=== PATIENT | female | born 1940 | race American Indian/Alaskan Native ===

== ENCOUNTER 2016-06-28 21:54 | Emergency (ER) | payer MEDICARE ==
[2016-06-28 22:23] VITALS: BP 164/87
[2016-06-29] MEDS ORDERED: TYLENOL PO ONE (03:02)
--- NOTE | 2016-06-29 03:40 | XRay Report ---
FINAL REPORT PROCEDURE: XR SHOULDER THREE VIEWS RIGHT TECHNIQUE: Right shoulder radiographs including AP views in internal and external rotation and abduction. CPT 70123 HISTORY: Right shoulder pain COMPARISON: No prior studies are available for comparison. FINDINGS: Fracture (s) and/or Dislocation(s): None . Joint space(s): Normal . Soft tissues: Normal . Bone mineralization: Mild degenerative change. Foreign bodies: None . IMPRESSION: Mild degenerative change noted with no plain film evidence of fracture or dislocation.
--- NOTE | 2016-06-29 03:59 | Emergency Department Report ---
Upper Extremity - HPI Chief Complaint: Extremity Injury, Upper Stated Complaint: FALL Time Seen by Provider: 06/29/16 03:01 Upper Extremity: Right Shoulder (patient complaining of right upper shoulder pain status post mechanical trip and fall in her bedroom tonight) Occurred When: Today Mechanism: Fall Symptoms: Yes Pain with Movement, No Deformity, No Limited Range of Movement, No Numbness, No Weakness, No Swelling, No Bruising/Ecchymosis, No Laceration or Abrasion Other History: 75-year-old female past medical history hypertension presents with complaint of right upper shoulder pain. Patient is awake alert and oriented 3 does not appear in acute distress states that she tripped over a laundry bag in her bedroom and her right shoulder hit the edge of bed. Patient denies any loss of consciousness that up immediately complaining of pain in her right upper shoulder region. Patient accompanied by her daughters. Daughter state that they immediately assisted her mother wanted her to fell. Occurred approximately 2 hours ago ED Review of Systems ROS: Stated complaint: FALL Other details as noted in HPI Constitutional: denies: chills, fever Eyes: denies: eye pain, eye discharge, vision change ENT: denies: ear pain, throat pain Respiratory: denies: cough, shortness of breath, wheezing Cardiovascular: denies: chest pain, palpitations Endocrine: no symptoms reported Gastrointestinal: denies: abdominal pain, nausea, diarrhea Genitourinary: denies: urgency, dysuria, discharge Musculoskeletal: as per HPI. denies: back pain, joint swelling, arthralgia Skin: denies: rash, lesions Neurological: denies: headache, weakness, paresthesias Psychiatric: denies: anxiety, depression Hematological/Lymphatic: denies: easy bleeding, easy bruising ED Past Medical Hx - Past Medical History Previous Medical History?: Yes Hx Hypertension: Yes - Surgical History Past Surgical History?: No - Social History Smoking Status: Never Smoker Substance Use Type: None - Medications Home Medications: Home Medications Medication Instructions Recorded Confirmed Last Taken Type Ciprofloxacin HCl [Cipro] 500 mg PO BID #14 tablet 09/11/14 Unknown Rx Lisinopril/Hydrochlorothiazide 1 tab PO QDAY 09/11/14 09/11/14 09/10/14 History [Zestoretic 20-25 mg] Acetaminophen [Acetaminophen TAB] 500 mg PO Q6HR PRN #20 tablet 06/29/16 Unknown Rx Upper Extremity Exam - Exam General: Vital signs noted. No distress. Alert and acting appropriately. Head and Torso: No HEENT Abnormality, No Neck Tenderness, No Chest/Lungs Abnormality, No Abdominal Tenderness, No Back Tenderness Shoulder Exam: Yes Shoulder Tenderness (mild anterior shoulder tenderness no signs of swelling or ecchymosis or lacerations), Yes Normal Range of Motion in Shoulder (inch motion abduction and abduction shoulder rotation internal and external fully intact), No Clavicle Tenderness, No Shoulder Deformity, No AC Joint Tenderness Arm Exam: No Arm/Humerus Tenderness, No Arm Deformity Elbow: No Elbow Tenderness, No Normal Range of Motion in Elbow, No Elbow Deformity Forearm: No Forearm Tenderness, No Forearm Deformity, No Pain with Pronation, No Pain with Supination Wrist: Yes Normal ROM in Wrist, No Wrist Tenderness, No Wrist Deformity, No Snuffbox Tenderness, No Pain with Axial Thumb Compression Hand: Yes Normal ROM in Digit(s), No Hand Tenderness, No Hand Deformity, No Digit Tenderness, No Digit(s) Deformity, No Tendon Dysfunction CMS Exam: Yes Normal Distal Pulses (distal radial and brachial pulses fully intact on palpation), Yes Normal Capillary Refill, No Broken Skin, No Normal Distal Sensation (total proprioception and sensitivity to light touch fully intact) ED Course Vital Signs 06/28/16 22:19 Temperature 98.0 F Pulse Rate 75 Respiratory 20 Rate Blood Pressure 164/87 O2 Sat by Pulse 100 Oximetry ED Medical Decision Making - Medical Decision Making A/P: Mechanical fall, shoulder sprain 1-x-rays show no fractures, neurovascularly intact right upper extremity, no signs of fracture on clinical exam, strength 5 out of 5, range of motion right shoulder preserved active and passive 2-Tylenol when necessary for pain 3-follow-up with primary care doctor Critical care attestation.: If time is entered above; I have spent that time in minutes in the direct care of this critically ill patient, excluding procedure time. ED Disposition Clinical Impression: Fall Qualifiers: Encounter type: initial encounter Qualified Code(s): W19.XXXA - Unspecified fall, initial encounter Shoulder sprain Qualifiers: Encounter type: initial encounter Shoulder sprain type: unspecified sprain Laterality: right Qualified Code(s): S43.401A - Unspecified sprain of right shoulder joint, initial encounter Disposition: DISCHARGED TO HOME OR SELFCARE Is pt being admited?: No Does the pt Need Aspirin: No Condition: Stable Instructions: Shoulder Sprain (ED), RICE Therapy (ED) Prescriptions: Acetaminophen [Acetaminophen TAB] 500 mg PO Q6HR PRN #20 tablet PRN Reason: Pain Referrals: JEFF HILTON MD [Staff Physician] - 3-5 Days [facility] [Provider Group] - 3-5 Days Forms: Accompanied Note, Work/School Release Form(ED) Time of Disposition: 03:53
== END 2016-06-29 03:59 | disposition home or self-care (01) ==
LOC: ED 21:54
DX: S43.401A Unspecified sprain of right shoulder joint, initial encounter (principal); I10 Essential (primary) hypertension; W19.XXXA Unspecified fall, initial encounter; Y93.89 Activity, other specified; Y99.9 Unspecified external cause status; Y92.89 Other specified places as the place of occurrence of the external cause

== ENCOUNTER 2020-10-11 03:25 | Inpatient (IN) | payer MEDICARE ==
--- NOTE | 2020-10-11 04:26 | Emergency Department Report ---
ED Neuro Deficit HPI - General Chief Complaint: Altered Mental Status Stated Complaint: DIZZY/VOMITING/VISION LOSS RT EYE Source: patient Mode of arrival: Ambulatory Limitations: No Limitations - History of Present Illness Initial Comments: Chief complaint: Confused, abnormal gait, abnormal vision, dizzy, vomiting HPI: 80-year-old female with history of hypertension who presents with confusion, gait imbalance and double vision. At 2 PM, family member noticed that patient was ill. Daughter at the bedside noticed that she was walking to one side. She is unable to walk without assistance which is new. Her right eye is deviated outward. No previous history of stroke. Patient denies headache. She denies pain. History is limited due to patient's confusion. Patient does not take aspirin or blood thinners. -: Sudden, This morning (2 AM) Location: ataxia, other (Double vision confusion) Presenting Symptoms: Present: Altered Mental Status History of same: No Place: home Severity: severe Improves With: none Worsens With: none On Anticoagulants: No Context: sudden onset Treatments Prior to Arrival: none - Related Data Home Medications: Previous Rx's Medication Instructions Recorded Last Taken Type Aspirin EC [Halfprin EC] 81 mg PO QDAY 30 Days #30 tablet. 10/12/20 Unknown Rx AtorvaSTATin [Lipitor] 20 mg PO QHS 30 Days #30 tab 10/12/20 Unknown Rx Clopidogrel [Plavix] 75 mg PO QDAY #30 tablet 10/12/20 Unknown Rx Losartan/Hydrochlorothiazide 1 each PO QDAY #30 tablet 10/12/20 Unknown Rx [Losartan-Hctz 100-25 mg Tab] Potassium Chloride [K-Dur] 10 meq PO QDAY 30 Days #30 10/12/20 Unknown Rx carvediloL [Coreg] 12.5 mg PO BID #60 10/12/20 Unknown Rx Allergies/Adverse Reactions: Allergies Allergy/AdvReac Type Severity Reaction Status Date / Time No Known Allergies Allergy Verified 09/11/14 05:54 ED Review of Systems ROS: Stated complaint: DIZZY/VOMITING/VISION LOSS RT EYE Other details as noted in HPI Comment: Unobtainable due to pts medical conditions (Confusion) ED Past Medical Hx - Past Medical History Previous Medical History?: Yes Hx Hypertension: Yes - Surgical History Past Surgical History?: No - Family History Family history: hypertension - Social History Smoking Status: Never Smoker - Medications Home Medications: Home Medications Medication Instructions Recorded Confirmed Last Taken Type Aspirin EC [Halfprin EC] 81 mg PO QDAY 30 Days #30 tablet. 10/12/20 Unknown Rx AtorvaSTATin [Lipitor] 20 mg PO QHS 30 Days #30 tab 10/12/20 Unknown Rx Clopidogrel [Plavix] 75 mg PO QDAY #30 tablet 10/12/20 Unknown Rx Losartan/Hydrochlorothiazide 1 each PO QDAY #30 tablet 10/12/20 Unknown Rx [Losartan-Hctz 100-25 mg Tab] Potassium Chloride [K-Dur] 10 meq PO QDAY 30 Days #30 10/12/20 Unknown Rx carvediloL [Coreg] 12.5 mg PO BID #60 10/12/20 Unknown Rx ED Neuro Physical Exam - General Limitations: No Limitations General appearance: alert, other (Slow to respond to questions, frail soft speech) Suspected Stroke: Yes - Head Head exam: Present: atraumatic, normocephalic - Eye Eye exam: Present: normal appearance, other (Right eye deviated to the temporal region laterally) - ENT ENT exam: Present: mucous membranes moist - Neck Neck exam: Present: normal inspection, full ROM - Respiratory Respiratory exam: Present: normal lung sounds bilaterally. Absent: respiratory distress, wheezes, rales - Cardiovascular Cardiovascular Exam: Present: regular rate, normal rhythm, normal heart sounds. Absent: systolic murmur, diastolic murmur, rubs, gallop - GI/Abdominal GI/Abdominal exam: Present: soft, normal bowel sounds. Absent: tenderness, guarding, rebound - Extremities Exam Extremities exam: Present: normal inspection - Neurological Exam Neurological exam: Present: alert, oriented X3 - NIHSS Assessment Interval: Baseline 1a. Level of Consciousness: alert/keenly responsive 1b. LOC Questions: answers no questions correctly 1c. LOC Commands: performs tasks correctly 2. Best Gaze: partial gaze palsy 3. Visual: no visual loss 4. Facial Palsy: normal symmetrical movement 5b. Motor Arm Right: no drift 5a. Motor Arm Left: no drift 6a. Motor Leg Left: no drift 6b. Motor Leg Right: no drift 7. Limb Ataxia: present 2 limbs 8. Sensory: normal 9. Best Language: no aphasia 10. Dysarthria: normal 11. Extinction/Inattention: no abnormality Total Score: 5 Stroke Severity: Moderate Stroke - Psychiatric Psychiatric exam: Present: normal affect, normal mood - Skin Skin exam: Present: warm, dry, intact, normal color. Absent: rash ED Course Vital Signs 10/11/20 10/11/20 10/11/20 03:59 06:00 06:36 Temperature 97.4 F L 97.5 F L Pulse Rate 78 77 81 Respiratory 16 18 28 H Rate Blood Pressure 155/83 Blood Pressure 163/85 [Left] O2 Sat by Pulse 98 98 Oximetry 10/11/20 10/11/20 10/11/20 07:00 07:30 08:01 Temperature Pulse Rate 76 75 77 Respiratory 18 21 15 Rate Blood Pressure 167/84 160/78 160/78 Blood Pressure [Left] O2 Sat by Pulse 98 98 99 Oximetry 10/11/20 10/11/20 10/11/20 08:31 09:01 09:31 Temperature Pulse Rate 76 78 58 L Respiratory 19 22 23 Rate Blood Pressure 160/78 161/74 174/76 Blood Pressure [Left] O2 Sat by Pulse 100 99 100 Oximetry 10/11/20 10/11/20 10/11/20 10:03 10:31 11:01 Temperature Pulse Rate Respiratory Rate Blood Pressure 174/76 174/76 166/76 Blood Pressure [Left] O2 Sat by Pulse 97 99 100 Oximetry 10/11/20 10/11/20 10/11/20 11:21 11:31 11:41 Temperature Pulse Rate 70 65 Respiratory 23 21 24 Rate Blood Pressure 166/76 166/76 166/76 Blood Pressure [Left] O2 Sat by Pulse 100 99 100 Oximetry 10/11/20 10/11/20 10/11/20 11:51 12:01 12:11 Temperature Pulse Rate 73 75 68 Respiratory 27 H 19 25 H Rate Blood Pressure 166/76 166/76 166/76 Blood Pressure [Left] O2 Sat by Pulse 98 100 100 Oximetry 10/11/20 10/11/20 10/11/20 12:21 12:31 12:41 Temperature Pulse Rate 78 73 67 Respiratory 26 H 27 H 22 Rate Blood Pressure 166/76 166/76 166/76 Blood Pressure [Left] O2 Sat by Pulse 98 99 99 Oximetry 10/11/20 10/11/20 12:51 13:00 Temperature Pulse Rate 67 87 Respiratory 21 17 Rate Blood Pressure 166/76 166/76 Blood Pressure [Left] O2 Sat by Pulse 99 89 Oximetry - Reevaluation(s) Reevaluation #1: 10/11/20 04:49 ~Neurologist diagnosed patient with left 3rd nerve palsy he also noted dysmetria and dysarthria on exam. Recommended stroke evaluation. 10/11/20 04:50 Reevaluation #2: 10/11/20 04:50 I spoke directly with the radiologist per phone. She stated the CT head was negative for acute findings. - Lab Data Result diagrams: 10/11/20 04:53 10/11/20 04:53 Lab Results 10/11/20 10/11/20 10/11/20 Range/Units 04:53 04:53 04:53 WBC 10.8 (4.5-11.0) K/mm3 RBC 4.45 (3.65-5.03) M/mm3 Hgb 13.5 (10.1-14.3) gm/dl Hct 41.2 (30.3-42.9) % MCV 93 (79-97) fl MCH 30 (28-32) pg MCHC 33 (30-34) % RDW 14.7 (13.2-15.2) % Plt Count 131 L (140-440) K/mm3 Lymph % (Auto) 10.4 L (13.4-35.0) % [place] % (Auto) 2.5 (0.0-7.3) % Eos % (Auto) 0.6 (0.0-4.3) % Baso % (Auto) 0.4 (0.0-1.8) % Lymph # (Auto) 1.1 L (1.2-5.4) K/mm3 [place] # (Auto) 0.3 (0.0-0.8) K/mm3 Eos # (Auto) 0.1 (0.0-0.4) K/mm3 Baso # (Auto) 0.0 (0.0-0.1) K/mm3 Seg Neutrophils % 86.1 H (40.0-70.0) % Seg Neutrophils # 9.3 H (1.8-7.7) K/mm3 PT (12.2-14.9) Sec. INR (0.87-1.13) APTT (24.2-36.6) Sec. Sodium 140 (137-145) mmol/L Potassium 4.3 (3.6-5.0) mmol/L Chloride 102.9 (98-107) mmol/L Carbon Dioxide 29 (22-30) mmol/L Anion Gap 12 mmol/L BUN 12 (7-17) mg/dL Creatinine 0.4 L (0.6-1.2) mg/dL Estimated GFR > 60 ml/min BUN/Creatinine Ratio 30 % Glucose 179 H (65-100) mg/dL Calcium 9.8 (8.4-10.2) mg/dL Total Bilirubin 0.50 (0.1-1.2) mg/dL AST 17 (5-40) units/L ALT 13 (7-56) units/L Alkaline Phosphatase 130 H (35-129) units/L Troponin T < 0.010 (0.00-0.029) ng/mL Total Protein 7.3 (6.3-8.2) g/dL Albumin 4.6 (3.9-5) g/dL Albumin/Globulin Ratio 1.7 % // Range/Units 04:53 WBC (4.5-11.0) K/mm3 RBC (3.65-5.03) M/mm3 Hgb (10.1-14.3) gm/dl Hct (30.3-42.9) % MCV (79-97) fl MCH (28-32) pg MCHC (30-34) % RDW (13.2-15.2) % Plt Count (140-440) K/mm3 Lymph % (Auto) (13.4-35.0) % [place] % (Auto) (0.0-7.3) % Eos % (Auto) (0.0-4.3) % Baso % (Auto) (0.0-1.8) % Lymph # (Auto) (1.2-5.4) K/mm3 [place] # (Auto) (0.0-0.8) K/mm3 Eos # (Auto) (0.0-0.4) K/mm3 Baso # (Auto) (0.0-0.1) K/mm3 Seg Neutrophils % (40.0-70.0) % Seg Neutrophils # (1.8-7.7) K/mm3 PT 13.4 (12.2-14.9) Sec. INR 0.96 (0.87-1.13) APTT 25.3 (24.2-36.6) Sec. Sodium (137-145) mmol/L Potassium (3.6-5.0) mmol/L Chloride (98-107) mmol/L Carbon Dioxide (22-30) mmol/L Anion Gap mmol/L BUN (7-17) mg/dL Creatinine (0.6-1.2) mg/dL Estimated GFR ml/min BUN/Creatinine Ratio % Glucose (65-100) mg/dL Calcium (8.4-10.2) mg/dL Total Bilirubin (0.1-1.2) mg/dL AST (5-40) units/L ALT (7-56) units/L Alkaline Phosphatase (35-129) units/L Troponin T (0.00-0.029) ng/mL Total Protein (6.3-8.2) g/dL Albumin (3.9-5) g/dL Albumin/Globulin Ratio % - EKG Data -: EKG Interpreted by Hi EKG shows normal: sinus rhythm, axis Rate: normal Interpretation: nonspecific ST-T wave carla 10/11/20 05:12 EKG obtained 408 EKG interpreted by va Normal sinus rhythm rate 85 bpm normal axis prolonged MN interval MN depression isolated ST 1 mm elevation in lead II less than [address] elevation in V5 V6 - Radiology Data Radiology results: report reviewed Radiology impression: AP portable chest 1 view: No evidence of acute cardiopulmonary process CT head without contrast: Changes associated with chronic small vessel ischemic disease and atrophy - Medical Decision Making Left-sided 3rd nerve palsy, gait dysfunction with dysmetria and dysarthria suspicious for acute CVA. According to the teleneurologist NIH stroke scale 2. He did not recommend TPA. Last known well time according to history 2 PM. Considering concomitant symptoms of gait and balance dysmetria and dysarthria I am concerned for brainstem or cortical CVA. Patient given aspirin. CBC chemistry troponin coagulation parameters are within normal limits. Patient will be admitted to the hospital service. Critical Care Time: Yes Critical care time in (mins) excluding proc time.: 40 Critical care attestation.: If time is entered above; I have spent that time in minutes in the direct care of this critically ill patient, excluding procedure time. 40 minutes of critical care time excluding procedures were used in the care of the patient. After reviewing patient's EKG, history obtained by triage nurse. I immediately walked to the triage area to evaluate patient obtain history from daughter. I ordered stroke protocol. I activated code stroke. I informed charge nurse and business systems analyst patient had stroke symptoms. I discussed treatment plan with the nursing team members. I reviewed electronic record. I kept the family member informed. Patient required multiple interventions and reassessments. ED Disposition Clinical Impression: Acute CVA (cerebrovascular accident), Left-sided third cranial nerve palsy on examination Disposition: DC09 OP ADMIT IP TO THIS HOSP Is pt being admited?: Yes Does the pt Need Aspirin: No Condition: Stable
--- NOTE | 2020-10-11 04:38 | Consultation ---
History of Present Illness History of present illness: [place] [facility] Consult Note # Demographics Consult Type: Acute Stroke Level 2 (4.5-24 hrs) Patient Location: Emergency Room First Name: Pretty Miller Last Name: Keke Date of : 1940 Age: 80 Gender: Female Time of Initial Page ( Time): 10/11/2020, 04:23 Time of Return Call ( Time): 10/11/2020, 04:25 # HPI Chief Complaint: dizziness History: 80F with HTN presents with dizziness and trouble walking. Symptoms started at approximately 1400. # Scores Time of exam and NIHSS (): 10/11/2020, 04:25 Level of Consciousness 1a: [0] = Alert; keenly responsive LOC Questions 1b: [0] = Answers both questions correctly LOC Commands 1c: [0] = Performs both tasks correctly Best Gaze 2: [1] = Partial gaze palsy Visual 3: [0] = No visual loss Facial Palsy 4: [0] = Normal symmetrical movements Motor Arm Left 5a: [0] = No drift Motor Arm Right 5b: [0] = No drift Motor Leg Left 6a: [0] = No drift Motor Leg Right 6b: [0] = No drift Limb Ataxia 7: [0] = Absent Sensory 8: [0] = Normal Best Language 9: [0] = No aphasia Dysarthria 10: [1] = [id number] dysarthria Extinction and Inattention 11: [0] = No abnormality NIHSS Total: 2 # Data Time Head CT personally read by me (): 10/11/2020, 04:[address]: no bleed preliminarily reviewed by me, please refer to radiology read for official reading # Assessment Impression: Ischemic Stroke (Acute) # Plan Thrombolytic/Intervention: NOT IV Thrombolytic or IA Intervention Thrombolytic Exclusion: > 4.5 hours Intraarterial Exclusion: clinically consistent with small vessel disease Target Blood Pressure: SBP < 220 DBP < 105 Labs: hemoglobin A1c lipid panel Imaging: (urgency: routine): MR Angiogram Head without contrast MR Angiogram Neck with contrast MRI Brain without contrast Diagnostic Test: echo without bubble study Therapy/Evaluation: PT/OT evaluation speech/swallow consultation Medication: ASA 325 then 81 daily, atorvastatin 80 and tailor daily dose to LDL < 70 goal DVT Prophylaxis: SCD chemical DVT prophylaxis Other: permissive hypertension telemetry monitoring I have discussed my recommendations with the referring provider Disposition: admit # Logistics Telemedicine: Interactive 2 way audio and visual telecommunication technology was utilized during this visit Electronically signed at 10/11/2020 04:37 (Eastern Time) by Clive Cast MD Medications and Allergies Allergies Allergy/AdvReac Type Severity Reaction Status Date / Time No Known Allergies Allergy Verified 09/11/14 05:54 Home Medications Medication Instructions Recorded Confirmed Last Taken Type Ciprofloxacin HCl [Cipro] 500 mg PO BID #14 tablet 09/11/14 Unknown Rx Lisinopril/Hydrochlorothiazide 1 tab PO QDAY 09/11/14 09/11/14 09/10/14 History [Zestoretic 20-25 mg] Acetaminophen [Acetaminophen TAB] 500 mg PO Q6HR PRN #20 tablet 06/29/16 Unknown Rx Physical Examination - Vital Signs Vital Signs: Vital Signs Temp Pulse Resp BP Pulse Ox 97.4 F L 78 16 155/83 98 10/11/20 03:59 10/11/20 03:59 10/11/20 03:59 10/11/20 03:59 10/11/20 03:59
--- NOTE | 2020-10-11 04:50 | Cat Scan Report ---
Examination: CT of the head without contrast Clinical information: Altered mental status. Comparison: None Technical: Multiple axial CT images of the head were obtained without intravenous contrast. Sagittal and coronal reformats were obtained. All CTs at this facility utilize dose reduction techniques inc luding automated exposure control, iterative reconstruction and weight based dosing when appropriate to reduce patient radiation dose to as low as reasonable achievable. Findings: INTRACRANIAL CONTENTS: There is no CT evidence of acute intracranial hemorrhage. Mild symmetric periv entricular hypodensities are seen in the deep white matter bilaterally. There is mild generalized atr ophy. The ventricular system is normal in size. There is dense calcification along the falx. SKULL: No acute bony abnormality is visualized. ORBITS: The bilateral orbits and globes appear normal PARANASAL SINUSES / MASTOID AIR CELLS: Paranasal sinuses and mastoid air cells appear clear. Impression: 1. Changes associated with chronic small vessel ischemic disease and atrophy. If there is persistent clinical concern for stroke, MRI of the brain would be helpful for additional evaluation. This stud y was designated as a code stroke protocol. Findings were personally communicated to Dr. Calvin at 3: 45 AM. CRITICAL RESULT: Time of Discovery (SUPERVISOR WOOD [employer]W/CDT): 3:40 AM Time of Communication (SUPERVISOR WO[employer]W/CDT): 3:45 AM Licensed Practitioner Receiving Report: Dr. Calvin Read-Back Performed: Yes. Signer Name: Lorena Garcia MD Signed: 10/11/2020 4:45 AM Workstation Name: [id number]
[2020-10-11] MEDS ORDERED: ASPIRIN 325 MG TAB PO ONE (04:52)
--- NOTE | 2020-10-11 05:01 | XRay Report ---
CHEST 1 VIEW, 10/11/2020 3:54 AM CLINICAL INFORMATION/INDICATION: Altered mental status. Weakness. COMPARISON: None. FINDINGS: SUPPORT DEVICES: None. HEART: The cardiac silhouette is normal in size. LUNGS/PLEURA: The lungs are clear of focal airspace disease or significant pleural effusion. ADDITIONAL FINDINGS: No additional acute findings. IMPRESSION: 1. No evidence of acute cardiopulmonary process. Signer Name: Lorena Garcia MD Signed: 10/11/2020 4:56 AM Workstation Name: [id number]
[2020-10-11 05:18] LABS: Basophils % (Auto) 0.4 % (0.0-1.8); Eosinophils # (Auto) 0.1 K/mm3 (0.0-0.4); Eosinophils % (Auto) 0.6 % (0.0-4.3); Hematocrit 41.2 % (30.3-42.9); Hemoglobin 13.5 gm/dl (10.1-14.3); Lymphocytes # (Auto) 1.1 K/mm3 (1.2-5.4); Lymphocytes % (Auto) 10.4 % (13.4-35.0); Mean Corpuscular HGB Conc 33 % (30-34); Mean Corpuscular Volume 93 fl (79-97); Monocytes # (Auto) 0.3 K/mm3 (0.0-0.8); Monocytes % (Auto) 2.5 % (0.0-7.3); Red Blood Count 4.45 M/mm3 (3.65-5.03); Red Cell Distribution Width 14.7 % (13.2-15.2)
[2020-10-11 05:29] LABS: INR 0.96 (0.87-1.13); Platelet Count 131 K/mm3 (140-440)
[2020-10-11 05:30] LABS: Partial Thromboplastin Time 25.3 Sec. (24.2-36.6)
[2020-10-11 05:35] LABS: Alanine Aminotransferase 13 units/L (7-56); Albumin 4.6 g/dL (3.9-5); Blood Urea Nitrogen 12 mg/dL (7-17); Calcium 9.8 mg/dL (8.4-10.2); Hemolysis Index 40
[2020-10-11 05:37] LABS: BUN/Creatinine Ratio 30
--- NOTE | 2020-10-11 15:02 | Electrocardiograph Report ---
[facility] Test Date: 2020-10-11 Test Time: 04:09:23 Pat Name: JD DECKER Department: Room: A490 Gender: F Environmental Compliance Technician: HECTOR : 1940 Requested By: SYDNIE SONG Order Number: [id number] Reading MD: Valentin Lester Measurements Intervals [place] Rate: 85 P: 56 NH: 214 QRS: 19 QRSD: 57 T: 29 QT: 375 QTc: 446 Interpretive Statements Sinus rhythm Borderline prolonged NH interval Left atrial enlargement Probable anterolateral infarct, old ST elevation, consider inferior injury No previous ECG available for comparison Electronically Signed On 10-11-2020 15:02:12 EDT by Valentin Lester
[2020-10-11] MEDS ORDERED: D5W/0.9% NACL 1,000 ML IV SCH (16:00)
[2020-10-11] MEDS: hydrALAZINE 20 MG/1 ML INJ IV PRN (22:56)
[2020-10-12] MEDS ORDERED: cloNIDine 0.1 MG TAB PO PRN (00:43)
[2020-10-12 07:00] LABS: Bilirubin,Urine NEG (Negative); Blood,Urine NEG (Negative); Calcium Oxalate Crystals,Urine 3+; Color,Urine Yellow (Yellow); Mucus,Urine FEW /HPF; Protein,Urine <15 mg/dL mg/dL (Negative)
--- NOTE | 2020-10-12 07:59 | History and Physical Report ---
History of Present Illness Date of examination: 10/11/20 Date of admission: 10/11/20 07:11 Chief complaint: 80F with HTN presents with dizziness and trouble walking. Symptoms started at approximately 1400. History of present illness: 80-year-old female with history of hypertension who presents with confusion, gait imbalance and double vision. At 2 PM, family member noticed that patient was ill. Daughter at the bedside noticed that she was walking to one side. She is unable to walk without assistance which is new. Her right eye is deviated outward. No previous history of stroke. Patient denies headache. She denies pain. History is limited due to patient's confusion. Patient does not take aspirin or blood thinners. -: Sudden, This morning (2 AM) Location: ataxia, other (Double vision confusion) Presenting Symptoms: Present: Altered Mental Status History of same: No Place: home Severity: severe Improves With: none Worsens With: none On Anticoagulants: No Context: sudden onsetTreatments Prior to Arrival: none - Past Medical History Previous Medical History?: Yes --Hypertension: Yes - Surgical History Past Surgical History?: No - Family History Family history: hypertension - Social History Smoking Status: Never Smoker - Medications Home Medications: Home Medications Medication Instructions Recorded Confirmed Last Taken Type Ciprofloxacin HCl [Cipro] 500 mg PO BID #14 tablet 09/11/14 Unknown Rx Lisinopril/Hydrochlorothiazide 1 tab PO QDAY 09/11/14 09/11/14 09/10/14 History [Zestoretic 20-25 mg] Acetaminophen [Acetaminophen TAB] 500 mg PO Q6HR PRN #20 tablet 06/29/16 Unknown Rx Review of Systems ROS: Constitutional no weight loss or weight gain no fever or chills HEENT diplopia on looking to the right side Neck no neck stiffness no lymph gland enlargement Chest and lungs no shortness of breath cough or wheezing CVS no chest pain no diaphoresis no palpitations GI no nausea no vomiting no diarrhea Genitourinary system no dysuria no flank pain Musculoskeletal system no muscle pains no joint pains [employer] weakness in both lower extremities, frequent falls Skin no rash no itching Psychiatric no depression no homicidal or suicidal tendencies Hematologic no lymphedema or bruising Endocrine no polydipsia no polyuria no cold intolerance no heat intolerance Medications and Allergies Allergies Allergy/AdvReac Type Severity Reaction Status Date / Time No Known Allergies Allergy Verified 09/11/14 05:54 Home Medications Medication Instructions Recorded Confirmed Last Taken Type Aspirin EC [Halfprin EC] 81 mg PO QDAY 30 Days #30 tablet. 10/12/20 Unknown Rx AtorvaSTATin [Lipitor] 20 mg PO QHS 30 Days #30 tab 10/12/20 Unknown Rx Clopidogrel [Plavix] 75 mg PO QDAY #30 tablet 10/12/20 Unknown Rx Losartan/Hydrochlorothiazide 1 each PO QDAY #30 tablet 10/12/20 Unknown Rx [Losartan-Hctz 100-25 mg Tab] Potassium Chloride [K-Dur] 10 meq PO QDAY 30 Days #30 10/12/20 Unknown Rx carvediloL [Coreg] 12.5 mg PO BID #60 10/12/20 Unknown Rx Active Meds: Active Medications Clonidine HCl (Clonidine 0.1 Mg Tab) 0.1 mg PO Q8H PRN PRN Reason: Hypertension Hydralazine HCl (Hydralazine 20 Mg/1 Ml Inj) 10 mg IV Q6H PRN PRN Reason: Hypertension Dextrose/Sodium Chloride (D5ns) 1,000 mls @ 100 mls/hr IV DIRECT FLORIAN Last Admin: 10/11/20 17:53 Dose: 100 mls/hr Documented by: Exam - Constitutional Vitals: Temp Pulse Resp BP Pulse Ox 98.1 F 77 14 163/80 95 10/12/20 06:53 10/12/20 06:53 10/12/20 06:53 10/12/20 06:53 10/12/20 06:53 General appearance: Present: no acute distress, well-nourished - EENT Eyes: Present: PERRL ENT: hearing intact, clear oral mucosa - Neck Neck: Present: supple, normal ROM - Respiratory Respiratory effort: normal Respiratory: bilateral: CTA - Cardiovascular Heart rate: 78 Rhythm: regular Heart Sounds: Present: S1 & S2. Absent: rub, click - Extremities Extremities: no ischemia, pulses symmetrical, No edema Peripheral Pulses: within normal limits - Abdominal General gastrointestinal: Present: soft, non-tender, non-distended, normal bowel sounds Female genitourinary: Present: normal - Rectal Rectal Exam: deferred - Integumentary Integumentary: Present: clear, warm, dry - Musculoskeletal Musculoskeletal: generalized weakness - Psychiatric Psychiatric: appropriate mood/affect, intact judgment & insight - Neurologic Neurologic: CNII-XII intact, moves all extremities - Allied Health Allied health notes reviewed: nursing, case management HEART Score - HEART Score Troponin: Troponin T < 0.010 ng/mL (0.00-0.029) 10/11/20 04:53 Results - Labs CBC & Chem 7: 10/11/20 04:53 10/11/20 04:53 Labs: Laboratory Last Values WBC 10.8 K/mm3 (4.5-11.0) 10/11/20 04:53 RBC 4.45 M/mm3 (3.65-5.03) 10/11/20 04:53 Hgb 13.5 gm/dl (10.1-14.3) 10/11/20 04:53 Hct 41.2 % (30.3-42.9) 10/11/20 04:53 MCV 93 fl (79-97) 10/11/20 04:53 MCH 30 pg (28-32) 10/11/20 04:53 MCHC 33 % (30-34) 10/11/20 04:53 RDW 14.7 % (13.2-15.2) 10/11/20 04:53 Plt Count 131 K/mm3 (140-440) L 10/11/20 04:53 Lymph % (Auto) 10.4 % (13.4-35.0) L 10/11/20 04:53 Trigg % (Auto) 2.5 % (0.0-7.3) 10/11/20 04:53 Eos % (Auto) 0.6 % (0.0-4.3) 10/11/20 04:53 Baso % (Auto) 0.4 % (0.0-1.8) 10/11/20 04:53 Lymph # (Auto) 1.1 K/mm3 (1.2-5.4) L 10/11/20 04:53 Trigg # (Auto) 0.3 K/mm3 (0.0-0.8) 10/11/20 04:53 Eos # (Auto) 0.1 K/mm3 (0.0-0.4) 10/11/20 04:53 Baso # (Auto) 0.0 K/mm3 (0.0-0.1) 10/11/20 04:53 Seg Neutrophils % 86.1 % (40.0-70.0) H 10/11/20 04:53 Seg Neutrophils # 9.3 K/mm3 (1.8-7.7) H 10/11/20 04:53 PT 13.4 Sec. (12.2-14.9) 10/11/20 04:53 INR 0.96 (0.87-1.13) 10/11/20 04:53 APTT 25.3 Sec. (24.2-36.6) 10/11/20 04:53 Sodium 140 mmol/L (137-145) 10/11/20 04:53 Potassium 4.3 mmol/L (3.6-5.0) 10/11/20 04:53 Chloride 102.9 mmol/L (98-107) 10/11/20 04:53 Carbon Dioxide 29 mmol/L (22-30) 10/11/20 04:53 Anion Gap 12 mmol/L 10/11/20 04:53 BUN 12 mg/dL (7-17) 10/11/20 04:53 Creatinine 0.4 mg/dL (0.6-1.2) L 10/11/20 04:53 Estimated GFR > 60 ml/min 10/11/20 04:53 BUN/Creatinine Ratio 30 % 10/11/20 04:53 Glucose 179 mg/dL (65-100) H 10/11/20 04:53 POC Glucose 157 mg/dL (70-105) H 10/11/20 20:14 Calcium 9.8 mg/dL (8.4-10.2) 10/11/20 04:53 Total Bilirubin 0.50 mg/dL (0.1-1.2) 10/11/20 04:53 AST 17 units/L (5-40) 10/11/20 04:53 ALT 13 units/L (7-56) 10/11/20 04:53 Alkaline Phosphatase 130 units/L (35-129) H 10/11/20 04:53 Troponin T < 0.010 ng/mL (0.00-0.029) 10/11/20 04:53 Total Protein 7.3 g/dL (6.3-8.2) 10/11/20 04:53 Albumin 4.6 g/dL (3.9-5) 10/11/20 04:53 Albumin/Globulin Ratio 1.7 % 10/11/20 04:53 Urine Color Yellow (Yellow) 10/12/20 06:35 Urine Turbidity Clear (Clear) 10/12/20 06:35 Urine pH 5.0 (5.0-7.0) 10/12/20 06:35 Ur Specific [place] 1.020 (1.003-1.030) 10/12/20 06:35 Urine Protein <15 mg/dl mg/dL (Negative) 10/12/20 06:35 Urine Glucose (UA) Neg mg/dL (Negative) 10/12/20 06:35 Urine Ketones Neg mg/dL (Negative) 10/12/20 06:35 Urine Blood Neg (Negative) 10/12/20 06:35 Urine Nitrite Neg (Negative) 10/12/20 06:35 Urine Bilirubin Neg (Negative) 10/12/20 06:35 Urine Urobilinogen 2.0 mg/dL (<2.0) 10/12/20 06:35 Ur Leukocyte Esterase Neg (Negative) 10/12/20 06:35 Urine WBC (Auto) 3.0 /HPF (0.0-6.0) 10/12/20 06:35 Urine RBC (Auto) 4.0 /HPF (0.0-6.0) 10/12/20 06:35 U Epithel Cells (Auto) 1.0 /HPF (0-13.0) 10/12/20 06:35 Calcium Oxalate Crystal 3+ 10/12/20 06:35 Urine Mucus Few /HPF 10/12/20 06:35 - Imaging and Cardiology Chest x-ray: report reviewed CT Scan - head: report reviewed Imaging and Cardiology: CT head Changes associated with chronic small vessel ischemic disease and atrophy If there is persistent clinical concern for stroke MRI of the brain may be helpful for additional evaluation. This study was designated as a code stroke protocol. Chest x-ray No acute findings Harrison/IV: Voiding Method Toilet Assessment and Plan Advance Directives: Yes (Full code) VTE prophylaxis?: Chemical Plan of care discussed with patient/family: Yes - Patient Problems (1) Acute CVA (cerebrovascular accident) Current Visit: Yes Status: Acute Plan to address problem: Left-sided 3rd nerve palsy, gait dysfunction with dysmetria and dysarthria suspicious for acute CVA. According to the teleneurologist NIH stroke scale 2. He did not recommend TPA. Last known well time according to history 2 PM. Considering concomitant symptoms of gait and balance dysmetria and dysarthria I am concerned for brainstem or cortical CVA. Patient given aspirin. Acute CVA work-up MRI brain Stroke protocol Acute rehab consult Patient has difficulty walking Patient has left 3rd nerve palsy Dual antiplatelet therapy added (2) Left-sided third cranial nerve palsy on examination Current Visit: Yes Status: Acute Plan to address problem: Occupation therapy (3) Hypertension Current Visit: Yes Status: Chronic Qualifiers: Hypertension type: essential hypertension Qualified Code(s): I10 - Essential (primary) hypertension Plan to address problem: Uncontrolled Coreg increased to 12.5 twice a day from 6.25 twice a day (4) Hyperlipidemia Current Visit: Yes Status: Chronic Qualifiers: Hyperlipidemia type: mixed hyperlipidemia Qualified Code(s): E78.2 - Mixed hyperlipidemia Plan to address problem: Lipitor added 40 mg subcu daily (5) DVT prophylaxis Current Visit: Yes Status: Acute Plan to address problem: On heparin and GI prophylaxis
--- NOTE | 2020-10-12 15:24 | Discharge Summary ---
Providers - Providers Date of Admission: 10/11/20 07:11 Date of discharge: 10/14/20 Attending physician: ASHISH FERNANDEZ 10/11/20 22:47 Physical Therapy Evaluation and Treat [CONS] Routine Comment: Reason For Exam: Neuro deficits 10/11/20 22:48 Occupational Therapy Evaluate and Treat [CONS] Routine Comment: Reason For Exam: Neuro deficits 10/11/20 22:49 Speech Therapy Evaluation and Treat [CONS] Routine Reason For Exam: Neuro deficits 10/12/20 12:05 Speech Therapy Evaluation and Treat [CONS] Routine Reason For Exam: cognition/dysarthria Primary care physician: ASHISH FERNANDEZ Hospitalization Condition: Stable Hospital course: Subjective Date of service: 10/14/20 Principal diagnosis: Patient feels weak and recurrent falls. Interval history: 80-year-old female with history of hypertension who presents with confusion, gait imbalance and double vision. At 2 PM, family member noticed that patient was ill. Daughter at the bedside noticed that she was walking to one side. She is unable to walk without assistance which is new. Her right eye is deviated outward. No previous history of stroke. Patient denies headache. She denies pain. History is limited due to patient's confusion. Patient does not take aspirin or blood thinners. -: Sudden, This morning (2 AM) Location: ataxia, other (Double vision confusion) Presenting Symptoms: Present: Altered Mental Status History of same: No Place: home Severity: severe Improves With: none Worsens With: none On Anticoagulants: No Context: sudden onsetTreatments Prior to Arrival: none 10/12/2020 Patient has recurrent falls CVA work-up 10/13/20 Ataxic MRI Brain--Midbrain infarct 10/14/2020 Patient is ataxic MRI brain shows left midbrain infarct Patient is being discharged to acute rehab Acute rehab has accepted the patient (1) Acute CVA (cerebrovascular accident) Current Visit: Yes Status: Acute Plan to address problem: Left-sided 3rd nerve palsy, gait dysfunction with dysmetria and dysarthria suspicious for acute CVA. According to the teleneurologist NIH stroke scale 2. He did not recommend TPA. Last known well time according to history 2 PM. Considering concomitant symptoms of gait and balance dysmetria and dysarthria I am concerned for brainstem or cortical CVA. Patient given aspirin. Acute CVA work-up MRI brain Stroke protocol Acute rehab consult Patient has difficulty walking Patient has left 3rd nerve palsy Dual antiplatelet therapy added MRI Brain-- remarkable for Left Midbrain infarct MRA neck showed right vertebral hypoplasia Transferred to acute rehab (2) Left-sided third cranial nerve palsy on examination Current Visit: Yes Status: Acute Plan to address problem: Occupation therapy (3) Hyperlipidemia Current Visit: Yes Status: Chronic Qualifiers: Hyperlipidemia type: mixed hyperlipidemia Qualified Code(s): E78.2 - Mixed hyperlipidemia Plan to address problem: Lipitor added 40 mg subcu daily (4) Hypertension Current Visit: Yes Status: Chronic Qualifiers: Hypertension type: essential hypertension Qualified Code(s): I10 - Essential (primary) hypertension Plan to address problem: Uncontrolled Coreg increased to 12.5 twice a day from 6.25 twice a day (5) DVT prophylaxis Current Visit: Yes Status: Acute Plan to address problem: On heparin and GI prophylaxis Disposition: [id number]PT [facility] Final Discharge Diagnosis (Prints w/discharge instructions): Acute CVA. Midbrain infarct. Left oculomotor nerve palsy. Hypertension. Ataxia Time spent for discharge: 32 minutes - Discharge Diagnoses (1) Acute CVA (cerebrovascular accident) Status: Acute (2) Left-sided third cranial nerve palsy on examination Status: Acute (3) Hyperlipidemia Status: Chronic Qualifiers: Hyperlipidemia type: mixed hyperlipidemia Qualified Code(s): E78.2 - Mixed hyperlipidemia (4) Hypertension Status: Chronic Qualifiers: Hypertension type: essential hypertension Qualified Code(s): I10 - Essential (primary) hypertension (5) DVT prophylaxis Status: Acute Core Measure Documentation - Palliative Care Palliative Care/ Comfort Measures: Not Applicable - Core Measures Any of the following diagnoses?: stroke - Stroke Discharge Requirements Statin for LDL = or >70 mg/dl on DC: Yes Anticoag for atrial fib/atrial flutter: Not Applicable Antithrombotic for ischemic stroke: Yes Exam - Constitutional Vitals: Temp Pulse Resp BP Pulse Ox 98.1 F 77 14 163/80 95 10/12/20 06:53 10/12/20 06:53 10/12/20 06:53 10/12/20 06:53 10/12/20 06:53 General appearance: Present: no acute distress, well-nourished - EENT Eyes: Present: PERRL ENT: hearing intact, clear oral mucosa - Neck Neck: Present: supple, normal ROM - Respiratory Respiratory effort: normal Respiratory: bilateral: CTA - Cardiovascular Heart rate: 78 Rhythm: regular Heart Sounds: Present: S1 & S2. Absent: rub, click - Extremities Extremities: pulses symmetrical, No edema Peripheral Pulses: within normal limits - Abdominal General gastrointestinal: Present: soft, non-tender, non-distended, normal bowel sounds, other Female genitourinary: Present: normal - Integumentary Integumentary: Present: clear, warm, dry - Musculoskeletal Musculoskeletal: generalized weakness, other (Ataxic) - Psychiatric Psychiatric: appropriate mood/affect, intact judgment & insight - Neurologic Neurologic: CNII-XII intact (Left oculomotor nerve palsy), focal deficits, moves all extremities, gait normal (Gait abnormal, ataxic), other (Ataxic) - Allied Health Allied health notes reviewed: nursing, PT, OT, case management Plan Activity: no restrictions Diet: low fat, low cholesterol, low salt Special Instructions: physical therapy, home health RN Follow up with: ASHISH FERNANDEZ MD [Primary Care Provider] - 7 Days Prescriptions: carvediloL [Coreg] 12.5 mg PO BID #60 Aspirin EC [Halfprin EC] 81 mg PO QDAY 30 Days #30 tablet. Potassium Chloride [K-Dur] 10 meq PO QDAY 30 Days #30 Losartan/Hydrochlorothiazide [Losartan-Hctz 100-25 mg Tab] 1 each PO QDAY #30 tablet Clopidogrel [Plavix] 75 mg PO QDAY #30 tablet
--- NOTE | 2020-10-12 17:03 | Progress Note ---
Assessment and Plan - Patient Problems (1) Acute CVA (cerebrovascular accident) Current Visit: Yes Status: Acute Plan to address problem: Left-sided 3rd nerve palsy, gait dysfunction with dysmetria and dysarthria suspicious for acute CVA. According to the teleneurologist NIH stroke scale 2. He did not recommend TPA. Last known well time according to history 2 PM. Considering concomitant symptoms of gait and balance dysmetria and dysarthria I am concerned for brainstem or cortical CVA. Patient given aspirin. Acute CVA work-up MRI brain Stroke protocol Acute rehab consult Patient has difficulty walking Patient has left 3rd nerve palsy Dual antiplatelet therapy added (2) Left-sided third cranial nerve palsy on examination Current Visit: Yes Status: Acute Plan to address problem: Occupation therapy (3) Hyperlipidemia Current Visit: Yes Status: Chronic Qualifiers: Hyperlipidemia type: mixed hyperlipidemia Qualified Code(s): E78.2 - Mixed hyperlipidemia Plan to address problem: Lipitor added 40 mg subcu daily (4) Hypertension Current Visit: Yes Status: Chronic Qualifiers: Hypertension type: essential hypertension Qualified Code(s): I10 - Esse ntial (primary) hypertension Plan to address problem: Uncontrolled Coreg increased to 12.5 twice a day from 6.25 twice a day (5) DVT prophylaxis Current Visit: Yes Status: Acute Plan to address problem: On heparin and GI prophylaxis Subjective Date of service: 10/12/20 Principal diagnosis: Patient feels weak and recurrent falls. Interval history: 80-year-old female with history of hypertension who presents with confusion, gait imbalance and double vision. At 2 PM, family member noticed that patient was ill. Daughter at the bedside noticed that she was walking to one side. She is unable to walk without assistance which is new. Her right eye is deviated outward. No previous history of stroke. Patient denies headache. She denies pain. History is limited due to patient's confusion. Patient does not take aspirin or blood thinners. -: Sudden, This morning (2 AM) Location: ataxia, other (Double vision confusion) Presenting Symptoms: Present: Altered Mental Status History of same: No Place: home Severity: severe Improves With: none Worsens With: none On Anticoagulants: No Context: sudden onsetTreatments Prior to Arrival: none 10/12/2020 Patient has recurrent falls CVA work-up Objective - Constitutional Vitals: Vital Signs - 12hr 10/12/20 06:53 Temperature 98.1 F Pulse Rate 77 Respiratory 14 Rate Blood Pressure 163/80 O2 Sat by Pulse 95 Oximetry General appearance: Present: no acute distress, well-nourished - EENT Eyes: PERRL, EOM intact ENT: hearing intact, clear oral mucosa Ears: bilateral: normal - Neck Neck: supple, normal ROM - Respiratory Respiratory effort: normal Respiratory: bilateral: CTA - Breasts Breasts: normal - Cardiovascular Heart rate: 76 Rhythm: regular Heart Sounds: Present: S1 & S2. Absent: gallop, rub Extremities: pulses intact, No edema, normal color, Full ROM - Gastrointestinal General gastrointestinal: Present: soft, non-tender, non-distended, normal bowel sounds - Genitourinary Female genitourinary: normal - Integumentary Integumentary: clear, warm, dry - Musculoskeletal Musculoskeletal: strength equal bilaterally, generalized weakness - Neurologic Neurologic: moves all extremities, other - Psychiatric Psychiatric: memory intact, appropriate mood/affect, intact judgment & insight - Allied health notes Allied health notes reviewed: nursing (Ataxic), case management - Labs CBC & Chem 7: 10/11/20 04:53 10/11/20 04:53 Labs: Abnormal lab results 10/11/20 10/12/20 10/12/20 Range/Units 20:14 07:45 11:22 POC Glucose 157 H 131 H 114 H (70-105) mg/dL HEART Score - HEART Score Troponin: Troponin T < 0.010 ng/mL (0.00-0.029) 10/11/20 04:53
[2020-10-12 18:49] LABS: Chol/HDL Ratio 3.42 %
[2020-10-12] MEDS: hydrALAZINE 20 MG/1 ML INJ IV PRN (23:48)
--- NOTE | 2020-10-13 07:28 | Consultation ---
History of Present Illness Consult date: 10/13/20 Reason for Consult: Dizziness and unsteady gait History of present illness: 80F with HTN presents with dizziness and trouble walking. Symptoms started at approximately 1400. History of present illness: 80-year-old female with history of hypertension who presents with confusion, gait imbalance and double vision. At 2 PM, family member noticed that patient was ill. Daughter at the bedside noticed that she was walking to one side. She is unable to walk without assistance which is new. Her right eye is deviated ou tward. No previous history of stroke. Patient denies headache. She denies pain. History is limited due to patient's confusion. Patient does not take aspirin or blood thinners. 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 - Past Medical History Previous Medical History?: Yes --Hypertension: Yes - Surgical History Past Surgical History?: No - Family History Family history: hypertension - Social History Smoking Status: Never Smoker - Medications Home Medications: Home Medications Medication Instructions Recorded Confirmed Last Taken Type Ciprofloxacin HCl [Cipro] 500 mg PO BID #14 tablet 09/11/14 Unknown Rx Lisinopril/Hydrochlorothiazide 1 tab PO QDAY 09/11/14 09/11/14 09/10/14 History [Zestoretic 20-25 mg] Acetaminophen [Acetaminophen TAB] 500 mg PO Q6HR PRN #20 tablet 06/29/16 Unknown Rx Review of Systems ROS: Constitutional no weight loss or weight gain no fever or chills HEENT diplopia on looking to the right side Neck no neck stiffness no lymph gland enlargement Chest and lungs no shortness of breath cough or wheezing CVS no chest pain no diaphoresis no palpitations GI no nausea no vomiting no diarrhea Genitourinary system no dysuria no flank pain Musculoskeletal system no muscle pains no joint pains OFFAL BALER weakness in both lower extremities, frequent falls Skin no rash no itching Psychiatric no depression no homicidal or suicidal tendencies Hematologic no lymphedema or bruising Endocrine no polydipsia no polyuria no cold intolerance no heat intolerance Medications and Allergies Allergies Allergy/AdvReac Type Severity Reaction Status Date / Time No Known Allergies Allergy Verified 09/11/14 05:54 Home Medications Medication Instructions Recorded Confirmed Last Taken Type Aspirin EC [Halfprin EC] 81 mg PO QDAY 30 Days #30 tablet. 10/12/20 Unknown Rx AtorvaSTATin [Lipitor] 20 mg PO QHS 30 Days #30 tab 10/12/20 Unknown Rx Clopidogrel [Plavix] 75 mg PO QDAY #30 tablet 10/12/20 Unknown Rx Losartan/Hydrochlorothiazide 1 each PO QDAY #30 tablet 10/12/20 Unknown Rx [Losartan-Hctz 100-25 mg Tab] Potassium Chloride [K-Dur] 10 meq PO QDAY 30 Days #30 10/12/20 Unknown Rx carvediloL [Coreg] 12.5 mg PO BID #60 10/12/20 Unknown Rx Active Meds: Active Medications Clonidine HCl (Clonidine 0.1 Mg Tab) 0.1 mg PO Q8H PRN PRN Reason: Hypertension Hydralazine HCl (Hydralazine 20 Mg/1 Ml Inj) 10 mg IV Q6H PRN PRN Reason: Hypertension Dextrose/Sodium Chloride (D5ns) 1,000 mls @ 100 mls/hr IV DIRECT FLORIAN Last Admin: 10/11/20 17:53 Dose: 100 mls/hr Documented by: Past History Past Medical History: hypertension Medications and Allergies Allergies Allergy/AdvReac Type Severity Reaction Status Date / Time No Known Allergies Allergy Verified 09/11/14 05:54 Home Medications Medication Instructions Recorded Confirmed Last Taken Type Aspirin EC [Halfprin EC] 81 mg PO QDAY 30 Days #30 tablet. 10/12/20 Unknown Rx AtorvaSTATin [Lipitor] 20 mg PO QHS 30 Days #30 tab 10/12/20 Unknown Rx Clopidogrel [Plavix] 75 mg PO QDAY #30 tablet 10/12/20 Unknown Rx Losartan/Hydrochlorothiazide 1 each PO QDAY #30 tablet 10/12/20 Unknown Rx [Losartan-Hctz 100-25 mg Tab] Potassium Chloride [K-Dur] 10 meq PO QDAY 30 Days #30 10/12/20 Unknown Rx carvediloL [Coreg] 12.5 mg PO BID #60 10/12/20 Unknown Rx Active Meds: Active Medications Clonidine HCl (Clonidine 0.1 Mg Tab) 0.1 mg PO Q8H PRN PRN Reason: Hypertension Hydralazine HCl (Hydralazine 20 Mg/1 Ml Inj) 10 mg IV Q6H PRN PRN Reason: Hypertension Last Admin: 10/12/20 23:48 Dose: 10 mg Documented by: Dextrose/Sodium Chloride (D5ns) 1,000 mls @ 100 mls/hr IV DIRECT FLORIAN Last Admin: 10/11/20 17:53 Dose: 100 mls/hr Documented by: Physical Examination - Vital Signs Vital Signs: Vital Signs Temp Pulse Resp BP Pulse Ox 97.4 F L 78 16 155/83 98 10/11/20 03:59 10/11/20 03:59 10/11/20 03:59 10/11/20 03:59 10/11/20 03:59 - Constitutional General appearance: comfortable - EENT EENT: Present: PERRL, mucous membranes moist - Respiratory Respiratory: Present: chest non-tender, lungs clear, rhonchi - Cardiovascular Cardiovascular: Present: regular rate, normal S1, normal S2 Extremities: Present: no peripheral edema bilatateraly, no clubbing, cyanosis - Gastrointestinal Gastrointestinal: Present: normoactive bowel sounds - Integumentary Integumentary: Present: normal - Neurologic Cranial nerve examination: PERRL, EOMI, intact Speech examination: intact Sensorimotor examination: other (slight right upper clumssy no pronator drift , no cranial findings , no sensory ,gait not done.) Results - Laboratory Findings CBC and BMP: 10/11/20 04:53 10/11/20 04:53 Abnormal Lab Findings: Abnormal Labs 10/11/20 10/11/20 10/11/20 04:53 04:53 20:14 Plt Count 131 L Lymph % (Auto) 10.4 L Lymph # (Auto) 1.1 L Seg Neutrophils % 86.1 H Seg Neutrophils # 9.3 H Creatinine 0.4 L Glucose 179 H POC Glucose 157 H Hemoglobin A1c Alkaline Phosphatase 130 H 10/12/20 10/12/20 10/12/20 07:45 11:22 17:10 Plt Count Lymph % (Auto) Lymph # (Auto) Seg Neutrophils % Seg Neutrophils # Creatinine Glucose POC Glucose 131 H 114 H Hemoglobin A1c 6.1 H Alkaline Phosphatase 10/12/20 20:17 Plt Count Lymph % (Auto) Lymph # (Auto) Seg Neutrophils % Seg Neutrophils # Creatinine Glucose POC Glucose 121 H Hemoglobin A1c Alkaline Phosphatase Assessment and Plan Assessment and Plan Advance Directives: Yes (Full code) VTE prophylaxis?: Chemical Plan of care discussed with patient/family: Yes # Acute CVA (cerebrovascular accident) -Left-sided 3rd nerve palsy, - gait dysfunction with dysmetria and dysarthria suspicious for acute CVA. - According to the teleneurologist NIH stroke scale 2. - not recommend TPA. Last known well time according to history 2 PM. -Considering concomitant symptoms of gait and balance dysmetria and dysarthria I am concerned for brainstem or cortical CVA. Patient given aspirin. -Acute CVA work-up -MRI brain--left midbrain lacunar infarct -MRA neck--hypoplasia right vertebral a. -Stroke protocol -Acute rehab consult -Patient has difficulty walking -Patient has left 3rd nerve palsy improved -Dual antiplatelet therapy X 3 weeks then Plavix plus lipitor 40 mg daily -Echo is pending # Left-sided third cranial nerve palsy on examination -Occupation therapy -Improved # Hypertension -Uncontrolled -Allow for permissive HTN<220/110X 24 hours -Coreg increased to 12.5 twice a day from 6.25 twice a day # Hyperlipidemia -Lipitor 40 mg daily # DVT prophylaxis On heparin and GI prophylaxis
--- NOTE | 2020-10-13 09:32 | Magnetic Resonance Report ---
MR CHEST WITHOUT CONTRAST HISTORY: Stroke, altered mental status, difficulty walking COMPARISON: None TECHNIQUE: Multiplane, multisequence images of the chest were obtained without contrast. CONTRAST: None FINDINGS: Heart and Pericardium: No significant abnormality. Vasculature: No significant abnormality. Lymphatics: No lymphadenopathy. Lungs: No significant abnormality, allowing for technique limitation. Trace right pleural effusion is noted. Trachea and Bronchi: No significant abnormality. Osseous Structures: No significant abnormality. Additional Findings: None IMPRESSION: Trace right pleural fluid, otherwise, unremarkable MR chest. Signer Name: Alek Cooper Jr, MD Signed: 10/13/2020 9:27 AM Workstation Name: [id number]
--- NOTE | 2020-10-13 10:08 | Magnetic Resonance Report ---
MRI BRAIN WITHOUT CONTRAST INDICATION / CLINICAL INFORMATION: stroke, DIFFICULTY WALKING, AMS PATIENT MOTION, BEST POSSIBLE EXAM. TECHNIQUE: Multisequence, multiplanar images were obtained. COMPARISON: CT head dated 10/11/2020 FINDINGS: CEREBRAL and CEREBELLAR HEMISPHERES: An approximate 6 mm focus of diffusion restriction is identified in the midbrain just to the left of midline on image 13. This appears to involve the tegmentum of th e midbrain. No other areas of diffusion restriction are detected. Mild diffuse cortical volume loss a nd mild chronic small vessel disease in the white matter are noted. No evidence for chronic infarct, hemorrhage, mass, mass effect or extra-axial fluid collection. Hyperostosis along the frontal lobes a nd anterior falx is noted. VENTRICLES: Normal in size and configuration for age. VISUALIZED ORBITS: No significant abnormality. VISUALIZED PARANASAL SINUSES: No significant abnormality. ADDITIONAL FINDINGS: None. IMPRESSION: 6 mm subacute ischemic infarct in the midbrain to the left of midline as described. Volume loss and chronic white matter changes which appear appropriate for this patient's age. Signer Name: Alek Cooper Jr, MD Signed: 10/13/2020 10:04 AM Workstation Name: [id number]
--- NOTE | 2020-10-13 10:45 | Magnetic Resonance Report ---
MR MRA/MRV neck wo con INDICATION / CLINICAL INFORMATION: 80 years Female; stroke, DIFFICULTY WALKING, AMS. TECHNIQUE: 2-D time of flight performed prior to contrast. NASCET criteria used for stenosis evaluati on. COMPARISON: None available. FINDINGS: CAROTID ARTERIES: There is no significant stenosis involving the visualized cervical carotid arteries by NASCET criteria. 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 The left vertebr al artery is dominant without significant focal stenosis. ARCH: The arch of vessels are obscured by the degree of motion artifact at. However, there is no flynn s evidence of significant stenosis on the source images. IMPRESSION: There is no MRA evidence of significant stenosis involving cervical carotid arteries by NASCET criter ia. 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 Signer Name: Curt Loaiza MD Signed: 10/13/2020 10:41 AM Workstation Name: [id number]
[2020-10-13] MEDS ORDERED: ASPIRIN 325 MG TAB PO SCH (13:00)
--- NOTE | 2020-10-13 13:25 | Magnetic Resonance Report ---
MR MRA/MRV head wo con INDICATION / CLINICAL INFORMATION: 80 years Female; cva, DIFFICULTY WALKING PATIENT MOTION, BEST POSSIBLE EXAM. TECHNIQUE: 3-D time of flight. NASCET type criteria used to evaluate stenoses. COMPARISON: None available. FINDINGS: INTERNAL CAROTID ARTERIES: There is no significant focal stenosis involving distal internal carotid a rteries by NASCET criteria. VERTEBROBASILAR SYSTEM: There is developmental hypoplasia the distal right vertebral artery which sonja ears to terminate in PICA. There is no significant focal stenosis involving the basilar artery. CEREBRAL ARTERIES: The motion significantly degrades the image quality. However, there is development al origin of the left [employer]ESSOR [employer] HISTORY. There is no clear evidence of significant focal stenosis involving t he visualized cerebral arteries at. ANEURYSM: None identified. IMPRESSION: The study is limited by motion. However, there is developmental hypoplasia the distal right vertebral artery and origin of the left [employer] HISTORY as described. There is no clear MRA evidence of significant focal stenosis involving visualized intracranial vessel s. Signer Name: Curt Loaiza MD Signed: 10/13/2020 1:20 PM Workstation Name: [id number]
[2020-10-13] MEDS: ASPIRIN EC 81 MG TAB PO SCH (13:54)
[2020-10-13] MEDS: ASPIRIN 325 MG TAB PO SCH (13:54)
[2020-10-13] MEDS: CLOPIDOGREL 75 MG TAB PO SCH (13:54)
--- NOTE | 2020-10-13 20:05 | Progress Note ---
Assessment and Plan - Patient Problems (1) Acute CVA (cerebrovascular accident) Current Visit: Yes Status: Acute Plan to address problem: Left-sided 3rd nerve palsy, gait dysfunction with dysmetria and dysarthria suspicious for acute CVA. According to the teleneurologist NIH stroke scale 2. He did not recommend TPA. Last known well time according to history 2 PM. Considering concomitant symptoms of gait and balance dysmetria and dysarthria I am concerned for brainstem or cortical CVA. Patient given aspirin. Acute CVA work-up MRI brain Stroke protocol Acute rehab consult Patient has difficulty walking Patient has left 3rd nerve palsy Dual antiplatelet therapy added MRI Brain-- remarkable for Left Midbrain infarct MRA neck showed right vertebral hypoplasia Needs acute rehab (2) Left-sided third cranial nerve palsy on examination Current Visit: Yes Status: Acute Plan to address problem: Occupation therapy (3) Hyperlipidemia Current Visit: Yes Status: Chronic Qualifiers: Hyperlipidemia type: mixed hyperlipidemia Qualified Code(s): E78.2 - Mixed hyperlipidemia Plan to address problem: Lipitor added 40 mg subcu daily (4) Hypertension Current Visit: Yes Status: Chronic Qualifiers: Hypertension type: essential hypertension Qualified Code(s): I10 - Essent ial (primary) hypertension Plan to address problem: Uncontrolled Coreg increased to 12.5 twice a day from 6.25 twice a day (5) DVT prophylaxis Current Visit: Yes Status: Acute Plan to address problem: On heparin and GI prophylaxis Subjective Date of service: 10/13/20 Principal diagnosis: Patient feels weak and recurrent falls. Interval history: 80-year-old female with history of hypertension who presents with confusion, gait imbalance and double vision. At 2 PM, family member noticed that patient was ill. Daughter at the bedside noticed that she was walking to one side. She is unable to walk without assistance which is new. Her right eye is deviated outward. No previous history of stroke. Patient denies headache. She denies pain. History is limited due to patient's confusion. Patient does not take aspirin or blood thinners. -: Sudden, This morning (2 AM) Location: ataxia, other (Double vision confusion) Presenting Symptoms: Present: Altered Mental Status History of same: No Place: home Severity: severe Improves With: none Worsens With: none On Anticoagulants: No Context: sudden onsetTreatments Prior to Arrival: none 10/12/2020 Patient has recurrent falls CVA work-up 10/13/20 Ataxic MRI Brain--Midbrain infarct Objective - Constitutional Vitals: Vital Signs - 12hr 10/13/20 10/13/20 10/13/20 08:16 14:00 16:32 Temperature 98.6 F 98.0 F Pulse Rate 89 93 H 78 Respiratory 20 18 Rate Blood Pressure 175/95 160/88 O2 Sat by Pulse 95 100 Oximetry General appearance: Present: no acute distress, well-nourished - EENT Eyes: PERRL, EOM intact ENT: hearing intact, clear oral mucosa Ears: bilateral: normal - Neck Neck: supple, normal ROM - Respiratory Respiratory effort: normal Respiratory: bilateral: CTA - Breasts Breasts: normal - Cardiovascular Heart rate: 78 Rhythm: regular Heart Sounds: Present: S1 & S2. Absent: gallop, rub Extremities: pulses intact, No edema, normal color, Full ROM - Gastrointestinal General gastrointestinal: Present: soft, non-tender, non-distended, normal bowel sounds - Genitourinary Female genitourinary: normal - Integumentary Integumentary: clear, warm, dry - Musculoskeletal Musculoskeletal: 1, strength equal bilaterally - Neurologic Neurologic: CNII-XII intact (3rd nerve palsy ), focal deficits (Ataxic Gait), moves all extremities, other (Ataxic) - Psychiatric Psychiatric: memory intact, appropriate mood/affect, intact judgment & insight - Labs CBC & Chem 7: 10/11/20 04:53 10/11/20 04:53 Labs: Abnormal lab results 10/12/20 10/13/20 Range/Units 20:17 08:13 POC Glucose 121 H 107 H (70-105) mg/dL HEART Score - HEART Score Troponin: Troponin T < 0.010 ng/mL (0.00-0.029) 10/11/20 04:53
--- NOTE | 2020-10-13 22:38 | Vascular Lab Report ---
"DUPLEX DOPPLER ULTRASOUND CAROTID, BILATERAL INDICATION / CLINICAL INFORMATION: CVA. COMPARISON: None available. FINDINGS: RIGHT CAROTID: - PLAQUE ESTIMATE (%): < 50% - CCA velocity: 1:15 cm/sec. - ICA peak systolic velocity: 111 cm/sec. - ICA/CCA PSV Ratio: 1.0 Right Vertebral Artery: Antegrade flow. LEFT CAROTID: - PLAQUE ESTIMATE: < 50% - CCA velocity: 107 cm/sec. - ICA peak systolic velocity: 98 cm/sec. - ICA/CCA PSV Ratio: 0.9 Left Vertebral Artery: Antegrade flow. IMPRESSION: 1. Right Internal Carotid Artery: Less than 50% diameter stenosis. 2. Left Internal Carotid Artery: Less than 50% diameter stenosis. Velocity criteria are extrapolated from diameter data as defined by the Society of Radiologists in Ul trasound Consensus Conference, Radiology 2003; 229;340-346. Degree of || ICA PSV || Plaque || ICA/CCA Stenosis (%) || (cm/sec) || estimate (%) || PSV Ratio Normal ............. || ...<125........... || ...None......... || ...<2.0 <50................... || ...<125........... || ......<50......... || ...<2.0 50-69................ || ..125-230...... || ......>50......... || 2.0-4.0 >70 but <100... || >230.............. || .......>50........ || ...>4.0 Near occlusion || High/low/none || ...visible....... || variable Total occlusion || ....None........... || ..no lumen... || ....N/A Signer Name: Jae SERRANO Signed: 10/13/2020 10:33 PM Workstation Name: [id number]"
[2020-10-14] MEDS: ASPIRIN EC 81 MG TAB PO SCH (10:32)
[2020-10-14] MEDS: ASPIRIN 325 MG TAB PO SCH (10:38)
[2020-10-14] MEDS: CLOPIDOGREL 75 MG TAB PO SCH (10:38)
[2020-10-14 20:26] VITALS: BP 138/52
== END 2020-10-14 21:40 | DRG 66 ==
LOC: ED 03:25 → 4A 07:11
PROVIDERS: ADMIT Internal Medicine; ATTEND Internal Medicine
DX: I63.9 Cerebral infarction, unspecified (principal); H49.02 Third [oculomotor] nerve palsy, left eye; I10 Essential (primary) hypertension; E78.5 Hyperlipidemia, unspecified; R27.8 Other lack of coordination; R47.1 Dysarthria and anarthria; Z20.822 Contact with and (suspected) exposure to COVID-19; R29.702 NIHSS score 2; E78.2 Mixed hyperlipidemia; Z82.49 Family history of ischemic heart disease and other diseases of the circulatory system; Z79.899 Other long term (current) drug therapy
CPT/HCPCS: 36415; 70450; 70544; 70547; 70551; 71045; 71550; 80053; 80061; 81001; 82962; 83036; 84484; 85025; 85610; 85730; 93005; 93306; 93880; G0378; A9270-GY; J0360; J7042; U0003

== ENCOUNTER 2020-10-14 10:15 | Inpatient (IN) | payer MEDICARE ==
[2020-10-14] MEDS ORDERED: ALBUTEROL 2.5 MG/3 ML NEBU IH PRN (11:24)
[2020-10-14] MEDS ORDERED: POLYETHYLENE GLYCOL 3350 17 GM POWDER PO PRN (11:24)
[2020-10-14] MEDS ORDERED: ONDANSETRON 4 MG ODT TAB PO PRN (11:24)
--- NOTE | 2020-10-14 22:02 | History and Physical Report ---
History of Present Illness Date: 10/14/20 Date of admission: 10/14/2020 Chief Complaint: CVA History of present illness: 80-year-old female who presented to the ED with confusion, diplopia and disequilibrium. Patient is unable to walk unassisted which is new for her. Right eye is deviated laterally. Symptoms started greater than 4.5 hours before presentation to the ED so she was outside the window for TPA. Teleneurology consult was obtained and suspected CVA. Head CT showed no bleed and no evidence of CVA. Neurologist recommended typical work-up with A1c, lipid, MRI brain, MRA head and neck, echo and PT/OT/DIRECTOR MATERNAL CHILD evaluation. Patient was slated for discharge due to some improvement however she still had deficits. Remainder of the work- up was performed and the patient was accepted into acute rehab. Her right eye is laterally deviated and is accompanied with end gaze nystagmus laterally and diplopia. 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 After the patient was medically stabilized they were transferred for further rehabilitation. All available medical records have been reviewed. Plan of care was discussed with patient. On 10/13/2020, day before admission proximately 37 minutes were invested in reviewing all available medical records in order to prepare for the patient's admission. Summary of said review is is in this note. Past History Past Medical History: hypertension Past Surgical History: No surgical history Social history: lives with family (Two-story home, bedroom is upstairs there is a bathroom on the ground floor.). denies: smoking, alcohol abuse, prescription drug abuse, IV drug use Family history: hypertension Medications and Allergies Allergies Allergy/AdvReac Type Severity Reaction Status Date / Time No Known Allergies Allergy Verified 09/11/14 05:54 Home Medications Medication Instructions Recorded Confirmed Last Taken Type Aspirin EC [Halfprin EC] 81 mg PO QDAY 30 Days #30 tablet. 10/12/20 Unknown Rx Clopidogrel [Plavix] 75 mg PO QDAY #30 tablet 10/12/20 Unknown Rx Losartan/Hydrochlorothiazide 1 each PO QDAY #30 tablet 10/12/20 Unknown Rx [Losartan-Hctz 100-25 mg Tab] Potassium Chloride [K-Dur] 10 meq PO QDAY 30 Days #30 10/12/20 Unknown Rx carvediloL [Coreg] 12.5 mg PO BID #60 10/12/20 Unknown Rx Aspirin EC [Halfprin EC] 81 mg PO QDAY tablet 10/14/20 Unknown Rx AtorvaSTATin [Lipitor] 40 mg PO QHS tablet 10/14/20 Unknown Rx Active Meds: Active Medications Acetaminophen (Acetaminophen 325 Mg Tab) 650 mg PO Q6H PRN PRN Reason: Non Cardiac Pain or Temp>100.5 Albuterol (Albuterol 2.5 Mg/3 Ml Nebu) 2.5 mg IH Q4HRT PRN PRN Reason: Shortness Of Breath Aspirin (Aspirin Ec 81 Mg Tab) 81 mg PO QDAY FLORIAN Stop: 11/05/20 09:59 Atorvastatin Calcium (Atorvastatin 40 Mg Tab) 40 mg PO QHS FLORIAN Bisacodyl (Bisacodyl 10 Mg Rect Supp) 10 mg RI QDAY PRN PRN Reason: Constipation Clopidogrel Bisulfate (Clopidogrel 75 Mg Tab) 75 mg PO QDAY FLORIAN Heparin Sodium (Porcine) (Heparin 5,000 Unit/1 Ml Vial) 5,000 unit SUB-Q Q12HR FLORIAN Hydralazine HCl (Hydralazine 20 Mg/1 Ml Inj) 10 mg IV Q4HR PRN PRN Reason: Hypertension Ondansetron HCl (Ondansetron 4 Mg Odt Tab) 4 mg PO Q8H PRN PRN Reason: Nausea And Vomiting Polyethylene Glycol (Polyethylene Glycol 3350 17 Gm Powder) 17 gm PO QDAY PRN PRN Reason: Constipation Review of Systems All systems: negative (ROS negative for 10 systems except as noted below with pertinent positives and negatives.) Constitutional: fatigue, no fever Eyes: right: other (Right eye deviates laterally, nystagmus), bilateral: diplopia Ears, nose, mouth and throat: no decreased hearing, no dysphagia Cardiovascular: no chest pain, no palpitations, no rapid/irregular heart beat, no edema Respiratory: no cough, no shortness of breath Gastrointestinal: no abdominal pain, no nausea, no vomiting, no diarrhea, no constipation Musculoskeletal: no neck pain, no low back pain Integumentary: no rash, no pruritis, no sores Neurological: weakness, ataxia, lack of coordination, double vision, no p arathesias, no numbness Psychiatric: no anxiety, no insomnia Exam - Exam Narrative exam: MUSCULOSKELETAL SPECIALTY EXAM CONSTITUTIONAL: Well developed, well nourished, appropriately groomed. RIGHT hand dominant. LYMPHATIC: No appreciable abnormalities palpable in neck RESPIRATORY: Clear to auscultation bilaterally, no increased work of breathing CARDIOVASCULAR: Regular Rate/ Rhythm, no swelling, edema or tenderness in BUE or BLE. Pulses palpable in all extremities. All extremities warm. GI: + bowel sounds, soft, NTTP, nondistended. INTEGUMENTARY: Normal, no lesion, rash, masses or bruising noted in extremities. MUSCULOSKELETAL: BUE and BLE normal without defect, crepitus, subluxation, effusion, arthritic changes or TTP. R 4+/5 L 4+ /5 ROM within normal limits Tone within normal limit NEURO: CN II : Visual velazquez full to confrontation CN II, III : PERRL CN III, IV, : Right eye has lateral deviation and nystagmus at end gaze, diplopia CN V : Facial sensation intact CN VII : Symmetric facial expressions and eye closure CN VIII : Hearing intact to finger rustle CN IX, X : Palate/uvula elevate midline, phonation normal CN XI : Intact shoulder shrug and head rotation CN XII : Tongue protrudes midline Sensation intact in all extremities without extinction. Reflexes 2+ bilaterally at biceps, brachioradialis and patella. No clonus at ankles. Coordination impaired in BUE. No tremor noted in 4 extremities. Naming and repetition intact. Follows 2 step commands. Aphasia not appreciated Dysarthria mild Dysphagia not appreciated Neglect not appreciated POSTURE and GAIT: Sitting posture good. Balance and gait deferred until seen with therapy. PSYCH: Alert, oriented x3, affect appears euthymic. Insight appears intact. - Labs CBC & Chem 7: 10/15/20 05:45 10/15/20 05:45 Assessment and Plan Assessment and plan: Patient was assessed and evaluated for Acute Inpatient Rehab Unit. Due to the patients above-mentioned medical complexity, along with decreased functional mobility and self care, this patient continues to require and be appropriate for a comprehensive, multidisciplinary ilazg-la-[id number] rehabilitation program. These needs cannot be met in an outpatient or other less intensive setting. The patient would continue to benefit from skilled therapy intervention for at least 3 hours per day, five days a week, with techniques specific to the needs of the patient to improve function, activities of daily living, and reintegration into the community. The patient continues to require: -- OT to improve ROM, self-care, and learn use of adaptive equipment -- PT to improve strength and balance, functional transfers, and ambulation with energy conservation techniques to improve functional mobility -- DIRECTOR MATERNAL CHILD to address cognitive deficits and swallowing ability -- 24 hour RN to ensure and prevent skin breakdown, promote progressive i ndependence while ensuring safety, ensure education regarding medications, and incorporation of the rehabilitation at the bedside -- 24 hour Turkey Roll Maker to coordinate this interdisciplinary program, and to manage/prevent complications as a result of the patients medical comorbidities. -Plan of care by day 4 -Weekly team conferences With such a program, there is a reasonable certainty that the goals individualized for this patient can be achieved within the specified length of stay. CVA: Continue Secondary Stroke Prevention (Antithrombotic, Statin (Goal LDL-C <70), BP control (Goal <140/90), GLU control (Goal A1c <7), and lifestyle modification). Monitor for recurrent stroke or post-stroke recrudescence. Continue neuromotor therapy as above. Family training when available. Monitor for post stroke depression, cognitive deficits, seizure, dysphagia, aphasia, shoulder hand syndrome, sensory deficits, spasticity, bowel/bladder deficits, sleep disturbance, vision deficits and DVT. Prognosis for recovery and Secondary Stroke Prevention discussed. Follow up with Neurology. No driving until cleared by Neurologist. Diplopia and lateral deviation of right eye: Continue occupational therapy for improvement with scanning techniques. Monitor for improvement. Patient would benefit from neuro shellfish checker evaluation which is not available. Hypertension: Continue medication. Monitor blood pressure. Adjust medications as needed for normotension. Hold for hypotension. Goal SBP <140 ADL dysfunction: OT will work on improving ability to perform ADLs (including assistive devices) to increase independence and decrease caregiver burden and improve functional transfers and mobility training. Difficulty walking: PT will work on gait training and proper use of assistive devices and advance as appropriate to use of stairs and outside ambulation on uneven surfaces. Unsteadiness on feet: PT will work on improving static and dynamic sitting and standing balance as well as proper use of assistive devices to decrease risk of falls. Abnormality of gait: PT will work to improve safety and efficiency of gait through neuromotor training and gait training along with instruction on proper use of assistive devices. Muscle weakness: PT & OT will work on strengthening exercises to improve functional strength including mixture of closed and open kinetic chain exercises. Debility: PT & OT will work on improving overall functional status to improve participation with ADLs, mobility and social involvement. Fatigue: PT & OT will work on improving endurance through aerobic exercises and therapeutic activity while monitoring patients tolerance for activity and vital signs as needed. DVT ppx: Heparin Pain: Continue physical modalities in therapy and pain medications as needed to achieve functional pain control. Sleep: Monitor and address as needed. Bowel: Monitor and address as needed. Appetite: Monitor and address as needed. Discharge planning: Pending therapy progress and care plan meeting. Will continue discussion with therapy team, SW, patient and family. Restrictions/ Precautions: Falls, vision WB status: FWB Functional Hx: ADLs: Independent Cognition: Independent Mobility: No AD Barriers to Discharge: Decreased mobility and ability to perform self care, balance deficits, weakness Estimated Length of Stay: 1014 days Discharge Destination: Home with family POST ADMISSION PHYSICIAN EVALUATION I have examined the patient and find that functional status, medical condition and appropriateness for IRF admission are essentially unchanged from those described in the preadmission screening. Will monitor for worsening neurologic function, secondary stroke, shoulder-hand syndrome, aspiration, dysphagia, worsening visual changes, DVT/PE, bowel and bladder complications and complications due to hypertension and electrolyte abnormalities. Will attempt to avoid occurrence of these issues or treat them if they present themselves.
[2020-10-14] MEDS: HEPARIN 5,000 UNIT/1 ML VIAL SUB-Q SCH (22:26)
[2020-10-15 05:59] LABS: Hematocrit 40.4 % (30.3-42.9); Hemoglobin 13.9 gm/dl (10.1-14.3); Mean Corpuscular HGB Conc 34 % (30-34); Mean Corpuscular Volume 92 fl (79-97); Platelet Count 189 K/mm3 (140-440); Red Blood Count 4.42 M/mm3 (3.65-5.03); Red Cell Distribution Width 14.2 % (13.2-15.2)
[2020-10-15 06:04] LABS: Basophils % (Auto) 0.6 % (0.0-1.8); Eosinophils # (Auto) 0.2 K/mm3 (0.0-0.4); Eosinophils % (Auto) 3.3 % (0.0-4.3); Lymphocytes # (Auto) 2.3 K/mm3 (1.2-5.4); Lymphocytes % (Auto) 32.6 % (13.4-35.0); Monocytes # (Auto) 0.6 K/mm3 (0.0-0.8); Monocytes % (Auto) 8.8 % (0.0-7.3)
[2020-10-15 06:26] LABS: Alanine Aminotransferase 12 units/L (7-56); Blood Urea Nitrogen 11 mg/dL (7-17); Calcium 9.5 mg/dL (8.4-10.2); Hemolysis Index 18
[2020-10-15 06:27] LABS: BUN/Creatinine Ratio 22
[2020-10-15] MEDS: CLOPIDOGREL 75 MG TAB PO SCH (09:11)
[2020-10-15] MEDS: ASPIRIN EC 81 MG TAB PO SCH (09:11)
[2020-10-15] MEDS: HEPARIN 5,000 UNIT/1 ML VIAL SUB-Q SCH ×2 (09:11→21:34)
--- NOTE | 2020-10-15 12:43 | Progress Note ---
Subjective Date of service: 10/15/20 Principal diagnosis: CVA Interval history: 80-year-old female who presented to the ED with confusion, diplopia and disequilibrium. Patient is unable to walk unassisted which is new for her. Right eye is deviated laterally. Symptoms started greater than 4.5 hours before presentation to the ED so she was outside the window for TPA. Teleneurology consult was obtained and suspected CVA. Head CT showed no bleed and no evidence of CVA. Neurologist recommended typical work-up with A1c, lipid, MRI brain, MRA head and neck, echo and PT/OT/WIRER HELPER evaluation. Patient was slated for discharge due to some improvement however she still had deficits. Remainder of the work- up was performed and the patient was accepted into acute rehab. Her right eye is laterally deviated and is accompanied with end gaze nystagmus laterally and diplopia. 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 Interval History: Patient is participating in therapy and making reasonable progress. Taking rest breaks as needed. +BM. Denies pain, palpitations, dyspnea, cough, N/V, or joint pain. CVA: No signs of worsening neurologic dysfunction, headache, shoulder-hand syndrome. Continue secondary stroke prevention. Vision seems to have improved slightly today. Diplopia: Seems to have improved slightly today. Continue to monitor Hypertension: Continue to monitor vitals and adjust medications as needed. Will need to speak with nursing as vitals have not been recorded once patient was transitioned over. May be a function of her being off of the normal rehab floor. Cranial nerve III or palsy: Patient's right eye was laterally displaced yesterday but was not down and out which would signify more of a cranial nerve III. Today the patient's eye is better aligned and is not showing lateral deviation, nystagmus still present. Continue to monitor and see if this has completely resolved or she just happens to be slightly improved today. We will continue occupational therapy working with her as well as possibly utilizing patch to improve function. Would benefit from neuro creative designer which unfortun ately is not available here. Decreased coordination and impaired balance: Continue to monitor, patient is making some improvement with therapy. Fall risk and should be monitored closely when standing or transferring. All records, vitals, labs and medications were reviewed. No other issues per pa tient, nursing or therapy. Objective - Exam Narrative Exam: MUSCULOSKELETAL SPECIALTY EXAM CONSTITUTIONAL: Well developed, well nourished, appropriately groomed. RIGHT hand dominant. RESPIRATORY: Clear to auscultation bilaterally, no increased work of breathing CARDIOVASCULAR: Regular Rate/ Rhythm, no swelling, edema or tenderness in BUE or BLE. All extremities warm. GI: + bowel sounds, soft, NTTP, nondistended. INTEGUMENTARY: Normal, no lesion, rash, masses or bruising noted in extremities. MUSCULOSKELETAL: BUE and BLE normal without defect, crepitus, subluxation, effusion, arthritic changes or TTP. R 4+/5 L 4+ /5 ROM within normal limits Tone within normal limit NEURO: CN III, IV, : Right eye had lateral deviation and nystagmus at end gaze, diplopia, this has improved today and is not noticeable upon exam even with extended time to try and invoke the deviation. Sensation intact in all extremities without extinction. No tremor noted in 4 extremities. Follows 2 step commands. Aphasia not appreciated Dysarthria mild Dysphagia not appreciated Neglect not appreciated POSTURE and GAIT: Sitting posture good. Balance and gait deferred until seen with therapy. PSYCH: Alert, oriented x3, affect appears euthymic. Insight appears intact. - Constitutional Vitals: Vital Signs - 12hr 10/15/20 10:00 O2 Sat by Pulse 97 Oximetry - Allied health notes Allied health notes reviewed: nursing, PT, ST, OT - Labs CBC & Chem 7: 10/15/20 05:45 10/15/20 05:45 Labs: Laboratory Results - last 72 hr 10/15/20 10/15/20 05:45 05:45 WBC 7.2 RBC 4.42 Hgb 13.9 Hct 40.4 MCV 92 MCH 31 MCHC 34 RDW 14.2 Plt Count 189 Lymph % (Auto) 32.6 Maries % (Auto) 8.8 H Eos % (Auto) 3.3 Baso % (Auto) 0.6 Lymph # (Auto) 2.3 Maries # (Auto) 0.6 Eos # (Auto) 0.2 Baso # (Auto) 0.0 Seg Neutrophils % 54.7 Seg Neutrophils # 3.9 Sodium 141 Potassium 4.3 Chloride 105.6 Carbon Dioxide 29 Anion Gap 11 BUN 11 Creatinine 0.5 L Estimated GFR > 60 BUN/Creatinine Ratio 22 Glucose 115 H Calcium 9.5 Total Bilirubin 0.60 AST 14 ALT 12 Alkaline Phosphatase 118 Total Protein 6.4 Albumin 4.0 Albumin/Globulin Ratio 1.7 Assessment and Plan CVA: Continue Secondary Stroke Prevention (Antithrombotic, Statin (Goal LDL-C <70), BP control (Goal <140/90), GLU control (Goal A1c <7), and lifestyle modification). Monitor for recurrent stroke or post-stroke recrudescence. Continue neuromotor therapy as above. Family training when available. Monitor for post stroke depression, cognitive deficits, seizure, dysphagia, aphasia, shoulder hand syndrome, sensory deficits, spasticity, bowel/bladder deficits, sleep disturbance, vision deficits and DVT. Prognosis for recovery and Secondary Stroke Prevention discussed. Follow up with Neurology. No driving until cleared by Neurologist. Diplopia and lateral deviation of right eye: Continue occupational therapy for improvement with scanning techniques. Monitor for improvement. Patient would benefit from neuro creative designer evaluation which is not available. Improved on today's exam Hypertension: Continue medication. Monitor blood pressure. Adjust medications as needed for normotension. Hold for hypotension. 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 Improved on today's exam. Would expect if this was cranial nerve III that it would be down and out however the lesion was in the midbrain. Impaired balance and coordination: Continue to work with therapy, monitor for safety with transfers standing and walking. Impaired safety awareness: Continue to remind patient of safety issues and improve her awareness of safety for safe return home. ADL dysfunction: OT will work on improving ability to perform ADLs (including a ssistive devices) to increase independence and decrease caregiver burden and improve functional transfers and mobility training. Difficulty walking: PT will work on gait training and proper use of assistive devices and advance as appropriate to use of stairs and outside ambulation on uneven surfaces. Unsteadiness on feet: PT will work on improving static and dynamic sitting and standing balance as well as proper use of assistive devices to decrease risk of falls. Abnormality of gait: PT will work to improve safety and efficiency of gait through neuromotor training and gait training along with instruction on proper use of assistive devices. Muscle weakness: PT & OT will work on strengthening exercises to improve functional strength including mixture of closed and open kinetic chain exer cises. Debility: PT & OT will work on improving overall functional status to improve participation with ADLs, mobility and social involvement. Fatigue: PT & OT will work on improving endurance through aerobic exercises and therapeutic activity while monitoring patients tolerance for activity and vital signs as needed. DVT ppx: Heparin Pain: Continue physical modalities in therapy and pain medications as needed to achieve functional pain control. Sleep: Monitor and address as needed. Bowel: Monitor and address as needed. Appetite: Monitor and address as needed. Discharge planning: Pending therapy progress and care plan meeting. Will continue discussion with therapy team, SW, patient and family. Restrictions/ Precautions: Falls, vision WB status: FWB Functional Hx: ADLs: Independent Cognition: Independent Mobility: No AD Barriers to Discharge: Decreased mobility and ability to perform self care, balance deficits, weakness Estimated Length of Stay: 1014 days Discharge Destination: Home with family
[2020-10-15] MEDS: hydrALAZINE 20 MG/1 ML INJ IV PRN (21:34)
[2020-10-15] MEDS: ACETAMINOPHEN 325 MG TAB PO PRN (21:38)
--- NOTE | 2020-10-16 07:59 | Progress Note ---
Subjective Date of service: 10/16/20 Principal diagnosis: CVA Interval history: 80-year-old female who presented to the ED with confusion, diplopia and disequilibrium. Patient is unable to walk unassisted which is new for her. Right eye is deviated laterally. Symptoms started greater than 4.5 hours before presentation to the ED so she was outside the window for TPA. Teleneurology consult was obtained and suspected CVA. Head CT showed no bleed and no evidence of CVA. Neurologist recommended typical work-up with A1c, lipid, MRI brain, MRA head and neck, echo and PT/OT/PRODUCE FIELD MERCHANDISER evaluation. Patient was slated for discharge due to some improvement however she still had deficits. Remainder of the work- up was performed and the patient was accepted into acute rehab. Her right eye is laterally deviated and is accompanied with end gaze nystagmus laterally and diplopia. 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 Interval History: Patient is participating in therapy and making reasonable progress. Taking rest breaks as needed. +BM. Denies pain, palpitations, dyspnea, cough, N/V, or joint pain. CVA: No signs of worsening neurologic dysfunction, headache, shoulder-hand syndrome. Continue secondary stroke prevention. Vision seems to have improved today. Diplopia: Seems to have improved today. Continue to monitor Hypertension: Continue to monitor vitals and adjust medications as needed. Restarting home medications at lower doses. Patient has been off medications due to permissive hypertension and was not transferred on any medications. Blood pressure values have been elevated sporadically. We will look to escalate medications over the next few days. Cranial nerve III or palsy: Patient's right eye was laterally displaced yesterday but was not down and out which would signify more of a cranial nerve III. Today the patient's eye is better aligned and is not showing lateral deviation, nystagmus still present. Continue to monitor and see if this has completely resolved. We will continue occupational therapy working with her as well as possibly utilizing patch to improve function. Would benefit from neuro lumber trimmer which unfortunately is not available. Decreased coordination and impaired balance: Continue to monitor, patient is making some improvement with therapy. Fall risk and should be monitored closely when standing or transferring. All records, vitals, labs and medications were reviewed. No other issues per patient, nursing or therapy. Objective - Exam Narrative Exam: MUSCULOSKELETAL SPECIALTY EXAM CONSTITUTIONAL: Well developed, well nourished, appropriately groomed. RIGHT hand dominant. RESPIRATORY: Clear to auscultation bilaterally, no increased work of breathing CARDIOVASCULAR: Regular Rate/ Rhythm, no swelling, edema or tenderness in BUE or BLE. All extremities warm. GI: + bowel sounds, soft, NTTP, nondistended. INTEGUMENTARY: Normal, no lesion, rash, masses or bruising noted in extremities. MUSCULOSKELETAL: BUE and BLE normal without defect, crepitus, subluxation, effusion, arthritic changes or TTP. R 4+/5 L 4+ /5 ROM within normal limits Tone within normal limit NEURO: Lateral deviation of right eye has improved and is not noticeable upon exam even with extended time to try and invoke the deviation. Sensation intact in all extremities without extinction. No tremor noted in 4 extremities. Follows 2 step commands. Aphasia not appreciated Dysarthria mild Dysphagia not appreciated Neglect not appreciated POSTURE and GAIT: Sitting posture good. Balance and gait deferred until seen with therapy. PSYCH: Alert, oriented x3, affect appears euthymic. Insight appears intact mostly, seems to be some element of cognitive deficit present. - Constitutional Vitals: Vital Signs - 12hr 10/15/20 10/15/20 10/15/20 20:00 21:34 21:38 Temperature 98.5 F Pulse Rate 89 89 Respiratory 19 18 Rate Blood Pressure 175/76 Blood Pressure 175/76 [Left] O2 Sat by Pulse 98 Oximetry 10/15/20 10/16/20 10/16/20 22:00 00:34 05:12 Temperature 97.6 F 98.1 F Pulse Rate 104 H 88 Respiratory 18 18 Rate Blood Pressure 148/78 163/78 Blood Pressure [Left] O2 Sat by Pulse 97 98 97 Oximetry - Allied health notes Allied health notes reviewed: nursing, PT, ST, OT FIMS assessment as documented by PT/OT/ST: Locomotion- walk/wheelchair Ambulation Distance 50 - Labs CBC & Chem 7: 10/15/20 05:45 10/15/20 05:45 Labs: Laboratory Results - last 72 hr 10/15/20 10/15/20 10/16/20 05:45 05:45 07:37 WBC 7.2 RBC 4.42 Hgb 13.9 Hct 40.4 MCV 92 MCH 31 MCHC 34 RDW 14.2 Plt Count 189 Lymph % (Auto) 32.6 Hunt % (Auto) 8.8 H Eos % (Auto) 3.3 Baso % (Auto) 0.6 Lymph # (Auto) 2.3 Hunt # (Auto) 0.6 Eos # (Auto) 0.2 Baso # (Auto) 0.0 Seg Neutrophils % 54.7 Seg Neutrophils # 3.9 Sodium 141 Potassium 4.3 Chloride 105.6 Carbon Dioxide 29 Anion Gap 11 BUN 11 Creatinine 0.5 L Estimated GFR > 60 BUN/Creatinine Ratio 22 Glucose 115 H POC Glucose 112 H Calcium 9.5 Total Bilirubin 0.60 AST 14 ALT 12 Alkaline Phosphatase 118 Total Protein 6.4 Albumin 4.0 Albumin/Globulin Ratio 1.7 Assessment and Plan CVA: Continue Secondary Stroke Prevention (Antithrombotic, Statin (Goal LDL-C <70), BP control (Goal <140/90), GLU control (Goal A1c <7), and lifestyle modification). Monitor for recurrent stroke or post-stroke recrudescence. Continue neuromotor therapy as above. Family training when available. Monitor for post stroke depression, cognitive deficits, seizure, dysphagia, aphasia, shoulder hand syndrome, sensory deficits, spasticity, bowel/bladder deficits, sleep disturbance, vision deficits and DVT. Prognosis for recovery and Secondary Stroke Prevention discussed. Follow up with Neurology. No driving until cleared by Neurologist. Hypertension: Continue home medications which have been restarted at lower do ses. Monitor blood pressure. Adjust medications as needed for normotension. Hold for hypotension. 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 Improved on today's exam. Diplopia and lateral deviation of right eye: Continue occupational therapy for improvement with scanning techniques. Monitor for improvement. Patient would benefit from neuro lumber trimmer evaluation which is not available. Improved on today's exam Impaired balance and coordination: Continue to work with therapy, monitor for safety with transfers standing and walking. Impaired cognition: Continue speech therapy to improve patient's ability to be aware of deficits and to compensate for them if possible. Impaired safety awareness: Continue to remind patient of safety issues and improve her awareness of safety for safe return home. ADL dysfunction: OT will work on improving ability to perform ADLs (including assistive devices) to increase independence and decrease caregiver burden and improve functional transfers and mobility training. Difficulty walking: PT will work on gait training and proper use of assistive devices and advance as appropriate to use of stairs and outside ambulation on uneven surfaces. Unsteadiness on feet: PT will work on improving static and dynamic sitting and standing balance as well as proper use of assistive devices to decrease risk of falls. Abnormality of gait: PT will work to improve safety and efficiency of gait through neuromotor training and gait training along with instruction on proper use of assistive devices. Muscle weakness: PT & OT will work on strengthening exercises to improve functional strength including mixture of closed and open kinetic chain exercises. Debility: PT & OT will work on improving overall functional status to improve participation with ADLs, mobility and social involvement. Fatigue: PT & OT will work on improving endurance through aerobic exercises and therapeutic activity while monitoring patients tolerance for activity and vital signs as needed. DVT ppx: Heparin Pain: Continue physical modalities in therapy and pain medications as needed to achieve functional pain control. Sleep: Monitor and address as needed. Bowel: Monitor and address as needed. Appetite: Monitor and address as needed. Discharge planning: Pending therapy progress and care plan meeting. Will continue discussion with therapy team, SW, patient and family. Restrictions/ Precautions: Falls, vision WB status: FWB Functional Hx: ADLs: Independent Cognition: Independent Mobility: No AD Barriers to Discharge: Decreased mobility and ability to perform self care, balance deficits, weakness Estimated Length of Stay: 1014 days Discharge Destination: Home with family
[2020-10-16] MEDS ORDERED: LOSARTAN 50 MG TAB PO SCH (10:00)
[2020-10-16] MEDS: LOSARTAN 25 MG TAB PO SCH (10:55)
[2020-10-16] MEDS: ASPIRIN EC 81 MG TAB PO SCH (10:55)
[2020-10-16] MEDS: carvediloL 3.125 MG TAB PO SCH ×2 (10:55→21:18)
[2020-10-16] MEDS: CLOPIDOGREL 75 MG TAB PO SCH (10:55)
[2020-10-16] MEDS: HEPARIN 5,000 UNIT/1 ML VIAL SUB-Q SCH ×2 (10:55→21:18)
[2020-10-16] MEDS: hydrALAZINE 20 MG/1 ML INJ IV PRN (19:01)
--- NOTE | 2020-10-16 20:10 | IRU Plan of Care ---
Interdisciplinary Plan of Care - IP IRU INTERDISCIPLINARY PLAN: [facility] Inpatient Rehab Unit Plan of Care IRU Interdisciplinary Care Plan Start: 10/15/20 11:25 Freq: Status: Active Protocol: Document 10/16/20 19:42 TH (Rec: 10/16/20 19:45 TH [id number]) Interdisciplinary Problem List Interdisciplinary Problem List Interdisciplinary Problem List Impaired Eating/Swallowing, Query Text:Answers will Trigger Problems Impaired Bathing/Grooming, and Outcomes on Worklist. Impaired Dressing,Impaired Mobility,Impaired Transfers, Impaired Toileting,Impaired Expression,Impaired Problem Solving,Impaired Memory, Discharge Concerns,Impaired Safety,Diabetes Education, Impaired Cardiovascular System IRU Interdisciplinary Care Plan Therapy Services Therapy Services Will Include: Physical Therapy,Occupational Query Text:Patient will be seen for a Therapy,Speech Therapy minimum of 3 hours of daily therapy 5 out of 7 days a week. Therapy intensity may be adjusted within a 7 consecutive day period to effectively serve the individual needs of the patient. Treatment Frequency/Intensity/Duration Treatment Frequency 5 days per week Treatment Intensity 3 hours per day Treatment Duration 7-14 days Problem Area: Eating/Swallowing Eating/Swallowing Outcomes Eating/Swallowing Interventions Problem Area: Bathing/Grooming Bathing/Grooming Outcomes Improve Childress w/ Grooming,Improve Childress w/ Bathing Bathing/Grooming Interventions ADL Training,Use of Assistive Devices,Therapeutic Exercise, Therapeutic Activity, Neuromuscular Re-Education, Balance Work,Activity Tolerance Work,Patient/ Caregiver Education Problem Area: Dressing Dressing Outcomes Improve Childress w/ UB Dressing,Improve Childress w/ LB Dressing Dressing Interventions ADL Training,Use of Assistive Devices,Neuromuscular Re- Education,Therapeutic Exercise ,Balance Work,Modalities, Patient/Caregiver Education Problem Area: Mobility Mobility Outcomes Improve Childress w/ Bed Mobility,Improve Childress w/ Ambulation,Improve Childress w/ Stairs/Curb Mobility Interventions Therapeutic Exercise, Neuromuscular Re-Ed.,Patient/ Caregiver Education,Bed Mobility Work,Gait Training,W/ C Mobility Work Problem Area: Transfers Transfers Outcomes Improve Childress w/ Toilet Transfers,Improve Childress w/ Tub/Shower Transfers Transfers Interventions Transfer Training,Therapeutic Exercise,Neuromuscular Re- Education,Visual/Perceptual Training,Activity Tolerance Work,Modalities,Use of Assistive Devices,Patient/ Caregiver Education Problem Area: Bowel/Bladder Managment Bowel/Bladder Outcomes Bowel/Bladder Interventions Problem Area: Toileting Toileting Outcomes Improve Childress w/ Toileting Toileting Interventions ADL Training,Balance Work,Use of Assistive Devices,Patient/ Caregiver Education Problem Area: Nutrition Nutrition Outcomes Nutrition Interventions Problem Area: Comprehension Comprehension Outcomes Comprehension Interventions Problem Area: Expression Expression Outcomes Improve Intelligibility Expression Interventions Expressive Language,Patient/ Caregiver Education Problem Area: Problem Solving Problem Solving Outcomes Improve Problem Solving Problem Solving Interventions Cognitive Training,Safety Education,Patient/Caregiver Education Problem Area: Memory Memory Outcomes Memory Interventions Cognitive Training,Patient/ Caregiver Education Problem Area: Pain Management Pain Management Outcomes Pain Management Interventions Problem Area: Knowledge Deficits Knowledge Deficits Outcomes Knowledge Deficits Interventions Problem Area: Skin/Tissue Integrity Skin/Tissue Integrity Outcomes Skin/Tissue Integrity Interventions Problem Area: Social Interaction Social Interaction Outcomes Social Interaction Interventions Problem Area: Adjustment to Disability Adjustment to Disability Outcomes Adjustment to Disability Interventions Problem Area: Discharge Concerns Discharge Concerns Outcomes Discharge w/ Necessary Equipment,Have Home Health/ Outpatient Services Discharge Concerns Interventions Discharge Planning,Equipment Assessment, Acquisition and Placement,Family/Caregiver Training Problem Area: Community Reintegration Community Reintegration Outcomes Community Reintegration Interventions Problem Area: Home Management Home Management Outcomes Improve Childress w/ Home Management Home Management Interventions Clothing Care,Activity Tolerance Work,Telephone Use, Patient/Caregiver Education Problem Area: Safety Safety Outcomes Provide Safe Environment, Perform Selfcare Safely, Demonstrate Good Safety w/ Transfers/Mobility Safety Interventions Identify Fall Risk,[place] Pt. to Environment,Reduce Environmental Hazards,Neuro Check Assessment,Implement Mechanical Devices, i.e. Chair Alarm (Post Fall Update),Re- Educate Patient/Caregiver for Safety (Post Fall Update) Problem Area: Medication Education Medication Education Outcomes Medication Education Interventions Problem Area: Diabetes Education Diabetes Education Outcomes Diabetes Education Interventions Problem Area: Oxygenation Oxygenation Outcomes Oxygenation Interventions Problem Area: Cardiovascular Cardiovascular Outcomes Maintain or Improve Cardiovascular Status Cardiovascular Interventions Assess Vital Signs at least Every 4 hours,Cardiac Monitoring, EKG and ABG as Ordered. Physician Only Medical Prognosis and Rehabilitation Good rehab potential good prognosis Potential (Completed by Physician) This plan of care has been developed based on the findings from the pre- admission assessment, post admission physician evaluation, information gathered from the assessments from all therapy disciplines and other pertinent clinicians. The plan of care has been reviewed and discussed in collaboration with the interdisciplinary team. The plan of care will be reviewed and updated at least weekly.
[2020-10-17] MEDS: ASPIRIN EC 81 MG TAB PO SCH (09:48)
[2020-10-17] MEDS: LOSARTAN 25 MG TAB PO SCH (09:50)
[2020-10-17] MEDS: CLOPIDOGREL 75 MG TAB PO SCH (09:51)
[2020-10-17] MEDS: HEPARIN 5,000 UNIT/1 ML VIAL SUB-Q SCH ×2 (09:51→22:26)
[2020-10-17] MEDS: carvediloL 3.125 MG TAB PO SCH ×2 (09:51→22:26)
[2020-10-17] MEDS: ACETAMINOPHEN 325 MG TAB PO PRN (22:29)
--- NOTE | 2020-10-18 08:40 | Progress Note ---
Subjective Date of service: 10/18/20 Principal diagnosis: CVA Interval history: 80-year-old female who presented to the ED with confusion, diplopia and disequilibrium. Patient is unable to walk unassisted which is new for her. Right eye is deviated laterally. Symptoms started greater than 4.5 hours before presentation to the ED so she was outside the window for TPA. Teleneurology consult was obtained and suspected CVA. Head CT showed no bleed and no evidence of CVA. Neurologist recommended typical work-up with A1c, lipid, MRI brain, MRA head and neck, echo and PT/OT/HYDROPRESS OPERATOR evaluation. Patient was slated for discharge due to some improvement however she still had deficits. Remainder of the work- up was performed and the patient was accepted into acute rehab. Her right eye is laterally deviated and is accompanied with end gaze nystagmus laterally and diplopia. 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 Interval History: Patient is participating in therapy and making reasonable progress. Taking rest breaks as needed. +BM. Denies pain, palpitations, dyspnea, cough, N/V, or joint pain. CVA: No signs of worsening neurologic dysfunction, headache, shoulder-hand syndrome. Continue secondary stroke prevention. Vision seems to have improved today. Diplopia: Seems to have improved. Patient denies any ongoing features of diplopia today. Continue to monitor Hypertension: Continue to monitor vitals and adjust medications as needed. Restarting home medications at lower doses. Patient has been off medications due to permissive hypertension and was not transferred on any medications. Blood pressure values have been elevated sporadically. We will look to escalate medications over the next few days. Cranial nerve III or palsy: Patient's right eye was laterally displaced previously but was not down and out. Today the patient's eye is better aligned and is not showing lateral deviation, nystagmus still slightly present. Continue to monitor and see if this has completely resolved. We will continue occupational therapy working with her as well as possibly utilizing patch to improve function. Decreased coordination and impaired balance: Continue to monitor, patient is making some improvement with therapy. Fall risk and should be monitored closely when standing or transferring. Poor safety awareness: Nursing stated patient was attempting to get out of bed and move around the room on her own despite being told about the safety issues. Will institute bed and chair alarms as well as a sitter. All records, vitals, labs and medications were reviewed. No other issues per patient, nursing or therapy. Objective - Exam Narrative Exam: MUSCULOSKELETAL SPECIALTY EXAM CONSTITUTIONAL: Well developed, well nourished, appropriately groomed. RIGHT hand dominant. RESPIRATORY: Clear to auscultation bilaterally, no increased work of breathing CARDIOVASCULAR: Regular Rate/ Rhythm, no swelling, edema or tenderness in BUE or BLE. All extremities warm. GI: + bowel sounds, soft, NTTP, nondistended. INTEGUMENTARY: Normal, no lesion, rash, masses or bruising noted in extremities. MUSCULOSKELETAL: BUE and BLE normal without defect, crepitus, subluxation, effusion, arthritic changes or TTP. R 4+/5 L 4+ /5 ROM within normal limits Tone within normal limit NEURO: Lateral deviation of right eye not noticeable upon exam today even with extended time to try and invoke the deviation. Sensation intact in all extremities without extinction. No tremor noted in 4 extremities. Follows 2 step commands. Aphasia not appreciated Dysarthria mild Dysphagia not appreciated Neglect not appreciated POSTURE and GAIT: Sitting posture good. Balance and gait deferred until seen with therapy. PSYCH: Alert, oriented x3, affect appears euthymic. Insight appears intact mostly, s eems to be some element of cognitive deficit present. Poor safety awareness - Constitutional Vitals: Vital Signs - 12hr 10/18/20 06:54 Temperature 97.0 F L Pulse Rate 83 Respiratory 16 Rate Blood Pressure 135/68 O2 Sat by Pulse 96 Oximetry - Allied health notes Allied health notes reviewed: nursing, PT, ST, OT FIMS assessment as documented by PT/OT/ST: Locomotion- walk/wheelchair Ambulation Distance 50 - Labs CBC & Chem 7: 10/15/20 05:45 10/15/20 05:45 Labs: Laboratory Results - last 72 hr 10/16/20 10/16/20 07:37 12:14 POC Glucose 112 H 84 Assessment and Plan CVA: Continue Secondary Stroke Prevention (Antithrombotic, Statin (Goal LDL-C <70), BP control (Goal <140/90), GLU control (Goal A1c <7), and lifestyle modification). Monitor for recurrent stroke or post-stroke recrudescence. Continue neuromotor therapy as above. Family training when available. Monitor for post stroke depression, cognitive deficits, seizure, dysphagia, aphasia, shoulder hand syndrome, sensory deficits, spasticity, bowel/bladder deficits, sleep disturbance, vision deficits and DVT. Prognosis for recovery and Secondary Stroke Prevention discussed. Follow up with Neurology. No driving until cleared by Neurologist. Hypertension: Continue home medications which have been restarted at lower doses. Monitor blood pressure. Adjust medications as needed for normotension. Hold for hypotension. 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 Improved on today's exam. Diplopia and lateral deviation of right eye: Continue occupational therapy for improvement with scanning techniques. Monitor for improvement. Improved on today's exam Impaired balance and coordination: Continue to work with therapy, monitor for safety with transfers standing and walking. Impaired cognition: Continue speech therapy to improve patient's ability to be aware of deficits and to compensate for them if possible. Impaired safety awareness: Continue to remind patient of safety issues and improve her awareness of safety for safe return home. ADL dysfunction: OT will work on improving ability to perform ADLs (including assistive devices) to increase independence and decrease caregiver burden and improve functional transfers and mobility training. Difficulty walking: PT will work on gait training and proper use of assistive devices and advance as appropriate to use of stairs and outside ambulation on uneven surfaces. Unsteadiness on feet: PT will work on improving static and dynamic sitting and standing balance as well as proper use of assistive devices to decrease risk of falls. Abnormality of gait: PT will work to improve safety and efficiency of gait through neuromotor training and gait training along with instruction on proper use of assistive devices. Muscle weakness: PT & OT will work on strengthening exercises to improve functional strength including mixture of closed and open kinetic chain exercises. Debility: PT & OT will work on improving overall functional status to improve participation with ADLs, mobility and social involvement. Fatigue: PT & OT will work on improving endurance through aerobic exercises and therapeutic activity while monitoring patients tolerance for activity and vital signs as needed. DVT ppx: Heparin Pain: Continue physical modalities in therapy and pain medications as needed to achieve functional pain control. Sleep: Monitor and address as needed. Bowel: Monitor and address as needed. Appetite: Monitor and address as needed. Discharge planning: Pending therapy progress and care plan meeting. Will continue discussion with therapy team, SW, patient and family. Restrictions/ Precautions: Falls, vision WB status: FWB Functional Hx: ADLs: Independent Cognition: Independent Mobility: No AD Barriers to Discharge: Decreased mobility and ability to perform self care, balance deficits, weakness Estimated Length of Stay: 1014 days Discharge Destination: Home with family
[2020-10-18] MEDS: carvediloL 3.125 MG TAB PO SCH ×2 (11:04→22:32)
[2020-10-18] MEDS: CLOPIDOGREL 75 MG TAB PO SCH (11:04)
[2020-10-18] MEDS: LOSARTAN 50 MG TAB PO SCH (11:05)
[2020-10-18] MEDS: HEPARIN 5,000 UNIT/1 ML VIAL SUB-Q SCH ×2 (11:05→22:33)
[2020-10-18] MEDS: ASPIRIN EC 81 MG TAB PO SCH (11:05)
[2020-10-18] MEDS: LOSARTAN 25 MG TAB PO SCH (11:14)
[2020-10-19] MEDS: LOSARTAN 50 MG TAB PO SCH (08:33)
[2020-10-19] MEDS: CLOPIDOGREL 75 MG TAB PO SCH (08:33)
[2020-10-19] MEDS: carvediloL 3.125 MG TAB PO SCH ×2 (08:33→21:11)
[2020-10-19] MEDS: ASPIRIN EC 81 MG TAB PO SCH (08:33)
[2020-10-19] MEDS: HEPARIN 5,000 UNIT/1 ML VIAL SUB-Q SCH ×3 (08:34→21:11)
--- NOTE | 2020-10-19 09:51 | Progress Note ---
Subjective Date of service: 10/19/20 Principal diagnosis: CVA Interval history: 80-year-old female who presented to the ED with confusion, diplopia and disequilibrium. Patient is unable to walk unassisted which is new for her. Right eye is deviated laterally. Symptoms started greater than 4.5 hours before presentation to the ED so she was outside the window for TPA. Teleneurology consult was obtained and suspected CVA. Head CT showed no bleed and no evidence of CVA. Neurologist recommended typical work-up with A1c, lipid, MRI brain, MRA head and neck, echo and PT/OT/TEST BORER evaluation. Patient was slated for discharge due to some improvement however she still had deficits. Remainder of the work- up was performed and the patient was accepted into acute rehab. Her right eye is laterally deviated and is accompanied with end gaze nystagmus laterally and diplopia. 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 Interval History: Patient is participating in therapy and making reasonable progress. Taking rest breaks as needed. +BM. Denies pain, palpitations, dyspnea, cough, N/V, or joint pain. CVA: No signs of worsening neurologic dysfunction, headache, shoulder-hand syndrome. Continue secondary stroke prevention. Vision seems to have improved today. Diplopia: Seems to have improved. Patient denies any ongoing features of diplopia today. Continue to monitor Hypertension: Continue to monitor vitals and adjust medications as needed. Restarting home medications at lower doses. Patient has been off medications due to permissive hypertension and was not transferred on any medications. Blood pressure improving on current dosing, we will look to escalate medications over the next few days if needed. Cranial nerve III or palsy: Lateral deviation of the right eye has seemingly resolved, and patient is not having nystagmus or diplopia currently. Continue to monitor and see if this has completely resolved. We will continue occupational therapy working with her as well as possibly utilizing patch to improve function. Decreased coordination and impaired balance: Continue to monitor, patient is m aking some improvement with therapy. Fall risk and should be monitored closely when standing or transferring. Poor safety awareness: Seems to be improving slightly according to the nurses on the rehab floor. Will institute bed and chair alarms as well as a sitter. All records, vitals, labs and medications were reviewed. No other issues per patient, nursing or therapy. Patient discussed during team conference. Some confusion as to whether or not the patient is attempting to get out of bed and showing signs of confusion. Nursing earlier stated that she was constantly moving around in the room and was a high fall risk but we have not seen that since she has been on our unit. Sitter has been requested by nursing and was ordered. Patient might have some signs of mild dementia which would also explain some of the symptoms that we are seeing. Spoke with speech therapy who also agrees with this. Patient was thought to have visual deficits ongoing even though the lateral deviation of the right eye has resolved. I challenged the patient in the hallway to read signs and a 180 degree area and she was able to see all of them and attempted to read them. It appears that there may be either a learning/reading issue as the patient could pronounce, and words but had difficulty with larger words like "extinguisher". Have asked speech therapy to work with her more to try and figure out if this is a problem reading are truly visual. I think it is more related to reading ability and dementia than actual visual acuity. Objective - Exam Narrative Exam: MUSCULOSKELETAL SPECIALTY EXAM CONSTITUTIONAL: Well developed, well nourished, appropriately groomed. RIGHT hand dominant. RESPIRATORY: Clear to auscultation bilaterally, no increased work of breathing CARDIOVASCULAR: Regular Rate/ Rhythm, no swelling, edema or tenderness in BUE or BLE. All extremities warm. GI: + bowel sounds, soft, NTTP, nondistended. INTEGUMENTARY: Normal, no lesion, rash, masses or bruising noted in extremities. MUSCULOSKELETAL: BUE and BLE normal without defect, crepitus, subluxation, effusion, arthritic changes or TTP. R 4+/5 L 4+ /5 ROM within normal limits Tone within normal limit NEURO: Lateral deviation of right eye not noticeable upon exam today. Sensation intact in all extremities without extinction. No tremor noted in 4 extremities. Follows 2 step commands. Aphasia not appreciated Dysarthria mild Dysphagia not appreciated Neglect not appreciated POSTURE and GAIT: Sitting posture good. Balance and gait deferred until seen with therapy. PSYCH: Alert, oriented x3, affect appears euthymic. Insight appears intact mostly, seems to be some element of cognitive deficit present. Poor safety awareness - Constitutional Vitals: Vital Signs - 12hr 10/18/20 10/19/20 22:32 07:23 Temperature 98.3 F Pulse Rate 73 Respiratory 16 Rate Blood Pressure 114/68 138/61 O2 Sat by Pulse 95 Oximetry - Allied health notes Allied health notes reviewed: nursing, PT, ST, OT FIMS assessment as documented by PT/OT/ST: Locomotion- walk/wheelchair Ambulation Distance 50 - Labs CBC & Chem 7: 10/15/20 05:45 10/15/20 05:45 Labs: Laboratory Results - last 72 hr 10/16/20 12:14 POC Glucose 84 Assessment and Plan CVA: Continue Secondary Stroke Prevention (Antithrombotic, Statin (Goal LDL-C <70), BP control (Goal <140/90), GLU control (Goal A1c <7), and lifestyle modification). Monitor for recurrent stroke or post-stroke recrudescence. Continue neuromotor therapy as above. Family training when available. Monitor for post stroke depression, cognitive deficits, seizure, dysphagia, aphasia, shoulder hand syndrome, sensory deficits, spasticity, bowel/bladder deficits, sleep disturbance, vision deficits and DVT. Prognosis for recovery and Secondary Stroke Prevention discussed. Follow up with Neurology. No driving until cleared by Neurologist. Hypertension: Continue home medications which have been restarted at lower doses. Monitor blood pressure. Adjust medications as needed for normotension. Hold for hypotension. 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 Improved, seems resolved. Diplopia and lateral deviation of right eye: Continue occupational therapy for improvement with scanning techniques. Monitor for improvement. Improved, seems resolved Impaired balance and coordination: Continue to work with therapy, monitor for safety with transfers standing and walking. Impaired cognition: Continue speech therapy to improve patient's ability to be aware of deficits and to compensate for them if possible. Impaired safety awareness: Continue to remind patient of safety issues and improve her awareness of safety for safe return home. ADL dysfunction: OT will work on improving ability to perform ADLs (including assistive devices) to increase independence and decrease caregiver burden and improve functional transfers and mobility training. Difficulty walking: PT will work on gait training and proper use of assistive devices and advance as appropriate to use of stairs and outside ambulation on uneven surfaces. Unsteadiness on feet: PT will work on improving static and dynamic sitting and standing balance as well as proper use of assistive devices to decrease risk of falls. Abnormality of gait: PT will work to improve safety and efficiency of gait through neuromotor training and gait training along with instruction on proper use of assistive devices. Muscle weakness: PT & OT will work on strengthening exercises to improve functional strength including mixture of closed and open kinetic chain exercises. Debility: PT & OT will work on improving overall functional status to improve participation with ADLs, mobility and social involvement. Fatigue: PT & OT will work on improving endurance through aerobic exercises and therapeutic activity while monitoring patients tolerance for activity and vital signs as needed. DVT ppx: Heparin Pain: Continue physical modalities in therapy and pain medications as needed to achieve functional pain control. Sleep: Monitor and address as needed. Bowel: Monitor and address as needed. Appetite: Monitor and address as needed. Discharge planning: Pending therapy progress and care plan meeting. Will cont inue discussion with therapy team, SW, patient and family. Looking at possible 10/28 discharge. Will need to determine DME requirements as we approach discharge Restrictions/ Precautions: Falls, vision WB status: FWB Functional Hx: ADLs: Independent Cognition: Independent Mobility: No AD Barriers to Discharge: Decreased mobility and ability to perform self care, balance deficits, weakness Estimated Length of Stay: 1014 days Discharge Destination: Home with family
[2020-10-19 15:29] LABS: Hematocrit 40.2 % (30.3-42.9); Hemoglobin 13.6 gm/dl (10.1-14.3); Mean Corpuscular HGB Conc 34 % (30-34); Mean Corpuscular Volume 92 fl (79-97); Platelet Count 203 K/mm3 (140-440); Red Blood Count 4.38 M/mm3 (3.65-5.03); Red Cell Distribution Width 14.8 % (13.2-15.2)
[2020-10-19 16:06] LABS: Blood Urea Nitrogen 13 mg/dL (7-17); Hemolysis Index 6
[2020-10-19 16:17] LABS: BUN/Creatinine Ratio 22
--- NOTE | 2020-10-20 08:14 | Progress Note ---
Subjective Date of service: 10/20/20 Principal diagnosis: CVA Interval history: 80-year-old female who presented to the ED with confusion, diplopia and disequilibrium. Patient is unable to walk unassisted which is new for her. Right eye is deviated laterally. Symptoms started greater than 4.5 hours before presentation to the ED so she was outside the window for TPA. Teleneurology consult was obtained and suspected CVA. Head CT showed no bleed and no evidence of CVA. Neurologist recommended typical work-up with A1c, lipid, MRI brain, MRA head and neck, echo and PT/OT/[employer] evaluation. Patient was slated for discharge due to some improvement however she still had deficits. Remainder of the work- up was performed and the patient was accepted into acute rehab. Her right eye is laterally deviated and is accompanied with end gaze nystagmus laterally and diplopia. 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 Interval History: Patient is participating in therapy and making reasonable progress. Taking rest breaks as needed. +BM. Denies pain, palpitations, dyspnea, cough, N/V, or joint pain. I was called last night by nursing stating that the patient had blood in her urine. Notified again today that the blood was not necessarily in the urine but actually was rectal. Scant amount and red nature. Discussed with the patient she does have a history of hemorrhoids and has utilized Preparation H type products in the past. Will monitor for any further issues and work-up further if needed. Discontinue heparin. CVA: No signs of worsening neurologic dysfunction, headache, shoulder-hand syndrome. Continue secondary stroke prevention. Vision seems to have improved today. Diplopia: Seems to have improved. Patient denies any ongoing features of diplopia today. Continue to monitor Hypertension: Continue to monitor vitals and adjust medications as needed. Restarting home medications at lower doses. Patient has been off medications due to permissive hypertension and was not transferred on any medications. Blood pressure improving on current dosing, we will look to escalate medications over the next few days if needed. Slight amount of blood from rectum: Noted by nursing, patient has history of hem orrhoids, hemoglobin stable. Discontinue heparin and start Preparation H suppository. Cranial nerve III or palsy: Lateral deviation of the right eye has seemingly resolved, and patient is not having nystagmus or diplopia currently. Continue to monitor and see if this has completely resolved. We will continue occupational therapy working with her as well as possibly utilizing patch to improve function. Decreased coordination and impaired balance: Continue to monitor, patient is making some improvement with therapy. Fall risk and should be monitored closely when standing or transferring. Poor safety awareness: Family member stayed overnight with the patient states she is still attempting to get out of bed on a regular basis. Will continue bed and chair alarms as well as a sitter. Have discussed the importance of the patient not getting out of bed and risking a fall with further injury with the patient. All records, vitals, labs and medications were reviewed. No other issues per patient, nursing or therapy. Objective - Exam Narrative Exam: MUSCULOSKELETAL SPECIALTY EXAM CONSTITUTIONAL: Well developed, well nourished, appropriately groomed. RIGHT hand dominant. RESPIRATORY: Clear to auscultation bilaterally, no increased work of breathing CARDIOVASCULAR: Regular Rate/ Rhythm, no swelling, edema or tenderness in BUE or BLE. All extremities warm. GI: + bowel sounds, soft, NTTP, nondistended. INTEGUMENTARY: Normal, no lesion, rash, masses or bruising noted in extremities. MUSCULOSKELETAL: BUE and BLE normal without defect, crepitus, subluxation, effusion, arthritic changes or TTP. R 4+/5 L 4+ /5 ROM within normal limits Tone within normal limit NEURO: Lateral deviation of right eye not noticeable upon exam today. Sensation intact in all extremities without extinction. No tremor noted in 4 extremities. Follows 2 step commands. Aphasia not appreciated Dysarthria mild Dysphagia not appreciated Neglect not appreciated POSTURE and GAIT: Sitting posture good. Balance and gait deferred until seen with therapy. PSYCH: Alert, oriented x3, affect appears euthymic. Insight appears intact mostly, seems to be some element of cognitive deficit present. Poor safety awareness - Constitutional Vitals: Vital Signs - 12hr 10/19/20 10/20/20 21:11 04:10 Temperature 98.3 F Pulse Rate 91 H 85 Respiratory 18 Rate Blood Pressure 134/58 138/71 O2 Sat by Pulse 96 Oximetry - Allied health notes Allied health notes reviewed: nursing, PT, ST, OT FIMS assessment as documented by PT/OT/ST: Locomotion- walk/wheelchair Ambulation Distance 50 - Labs CBC & Chem 7: 10/19/20 14:28 10/19/20 14:28 Labs: Laboratory Results - last 72 hr 10/19/20 10/19/20 14:28 14:28 WBC 5.6 RBC 4.38 Hgb 13.6 Hct 40.2 MCV 92 MCH 31 MCHC 34 RDW 14.8 Plt Count 203 Sodium 140 Potassium 4.0 Chloride 104.8 Carbon Dioxide 26 Anion Gap 13 BUN 13 Creatinine 0.6 Estimated GFR > 60 BUN/Creatinine Ratio 22 Glucose 89 Calcium 10.0 Assessment and Plan CVA: Continue Secondary Stroke Prevention (Antithrombotic, Statin (Goal LDL-C <70), BP control (Goal <140/90), GLU control (Goal A1c <7), and lifestyle modification). Monitor for recurrent stroke or post-stroke recrudescence. Continue neuromotor therapy as above. Family training when available. Monitor for post stroke depression, cognitive deficits, seizure, dysphagia, aphasia, shoulder hand syndrome, sensory deficits, spasticity, bowel/bladder deficits, sleep disturbance, vision deficits and DVT. Prognosis for recovery and Secondary Stroke Prevention discussed. Follow up with Neurology. No driving until cleared by Neurologist. Hypertension: Continue home medications which have been restarted at lower doses. Monitor blood pressure. Adjust medications as needed for normotension. Hold for hypotension. Goal SBP <140 Small amount of blood from rectum: Patient has history of hemorrhoids and is also on antiplatelet as well as heparin for DVT prophylaxis. Have stopped heparin. Daphne daily CBC to monitor hemoglobin. Preparation H suppository ordered. Monitor for improvement. Possible cranial nerve III or palsy: Lateral deviation only with some nystagmus on initial exam. Improved, seems resolved. Diplopia and lateral deviation of right eye: Continue occupational therapy for improvement with scanning techniques. Monitor for improvement. Improved, seems resolved Impaired balance and coordination: Continue to work with therapy, monitor for safety with transfers standing and walking. Impaired cognition: Continue speech therapy to improve patient's ability to be aware of deficits and to compensate for them if possible. Impaired safety awareness: Continue to remind patient of safety issues and improve her awareness of safety for safe return home. Patient still attempting to get out of bed per family member who spent the night with her last night. ADL dysfunction: OT will work on improving ability to perform ADLs (including assistive devices) to increase independence and decrease caregiver burden and improve functional transfers and mobility training. Difficulty walking: PT will work on gait training and proper use of assistive devices and advance as appropriate to use of stairs and outside ambulation on uneven surfaces. Unsteadiness on feet: PT will work on improving static and dynamic sitting and standing balance as well as proper use of assistive devices to decrease risk of falls. Abnormality of gait: PT will work to improve safety and efficiency of gait through neuromotor training and gait training along with instruction on proper use of assistive devices. Muscle weakness: PT & OT will work on strengthening exercises to improve functional strength including mixture of closed and open kinetic chain exercises. Debility: PT & OT will work on improving overall functional status to improve participation with ADLs, mobility and social involvement. Fatigue: PT & OT will work on improving endurance through aerobic exercises and therapeutic activity while monitoring patients tolerance for activity and vital signs as needed. DVT ppx: Heparin on hold due to rectal bleed Pain: Continue physical modalities in therapy and pain medications as needed to achieve functional pain control. Sleep: Monitor and address as needed. Bowel: Monitor and address as needed. Appetite: Monitor and address as needed. Discharge planning: Pending therapy progress and care plan meeting. Will continue discussion with therapy team, SW, patient and family. Looking at possible 10/28 discharge. Will need to determine DME requirements as we approach discharge Restrictions/ Precautions: Falls, vision WB status: FWB Functional Hx: ADLs: Independent Cognition: Independent Mobility: No AD Barriers to Discharge: Decreased mobility and ability to perform self care, balance deficits, weakness Estimated Length of Stay: 1014 days Discharge Destination: Home with family
[2020-10-20 08:37] LABS: Bilirubin,Urine NEG (Negative); Blood,Urine MOD (Negative); Color,Urine Yellow (Yellow); Mucus,Urine FEW /HPF; Protein,Urine <15 mg/dL mg/dL (Negative); Urobilinogen,Urine < 2.0 mg/dL (<2.0)
[2020-10-20] MEDS: CLOPIDOGREL 75 MG TAB PO SCH (09:17)
[2020-10-20] MEDS: ASPIRIN EC 81 MG TAB PO SCH (09:17)
[2020-10-20] MEDS: LOSARTAN 50 MG TAB PO SCH (09:17)
[2020-10-20] MEDS: HEPARIN 5,000 UNIT/1 ML VIAL SUB-Q SCH (09:18)
[2020-10-20] MEDS: carvediloL 3.125 MG TAB PO SCH ×2 (09:18→21:28)
[2020-10-20] MEDS: PHENYLEPHRINE/SHARK LIVER/CCB 0.25/3/85.5%(PREP H) RECT SUPP PR SCH (21:28)
[2020-10-20] MEDS: hydrALAZINE 20 MG/1 ML INJ IV PRN (21:38)
[2020-10-21 08:19] LABS: Hematocrit 39.6 % (30.3-42.9); Hemoglobin 13.3 gm/dl (10.1-14.3); Mean Corpuscular HGB Conc 33 % (30-34); Mean Corpuscular Volume 92 fl (79-97); Platelet Count 200 K/mm3 (140-440); Red Blood Count 4.33 M/mm3 (3.65-5.03); Red Cell Distribution Width 14.7 % (13.2-15.2)
[2020-10-21] MEDS: LOSARTAN 50 MG TAB PO SCH (08:19)
[2020-10-21] MEDS: CLOPIDOGREL 75 MG TAB PO SCH (08:19)
[2020-10-21] MEDS: carvediloL 3.125 MG TAB PO SCH ×2 (08:19→21:29)
[2020-10-21] MEDS: ASPIRIN EC 81 MG TAB PO SCH (08:22)
--- NOTE | 2020-10-21 09:15 | Progress Note ---
Subjective Date of service: 10/21/20 Principal diagnosis: CVA Interval history: 80-year-old female who presented to the ED with confusion, diplopia and disequilibrium. Patient is unable to walk unassisted which is new for her. Right eye is deviated laterally. Symptoms started greater than 4.5 hours before presentation to the ED so she was outside the window for TPA. Teleneurology consult was obtained and suspected CVA. Head CT showed no bleed and no evidence of CVA. 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 Patient was slated for discharge due to some improvement however she still had deficits. Remainder of the work- up was performed and the patient was accepted into acute rehab. Her right eye is laterally deviated and is accompanied with end gaze nystagmus laterally and diplopia. 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 Interval History: Patient is participating in therapy and making reasonable progress. Taking rest breaks as needed. +BM. Denies pain, palpitations, dyspnea, cough, N/V, or joint pain. No more concerns with rectal bleeding mentioned. Will discuss with oncoming nurse to monitor. Still have the feeling that the patient has some amount of dementia likely that has been undiagnosed. CVA: No signs of worsening neurologic dysfunction, headache, shoulder-hand syndrome. Continue secondary stroke prevention. Vision seems to have improved however the patient did run into someone in the hallway while walking with therapy. She did not even seem to realize the person was sitting there in the wheelchair, and did not recollect this approximately an hour later. Diplopia: Seems to have improved. Patient denies any ongoing features of diplopia today. Continue to monitor Hypertension: Continue to monitor vitals and adjust medications as needed. Restarting home medications at lower doses. Patient has been off medications due to permissive hypertension and was not transferred on any medications. Blood pressure improving on current dosing, we will look to escalate medications over the next few days if needed. Slight amount of blood from rectum: Noted by nursing, patient has history of hemorrhoids, hemoglobin stable. Discontinue heparin and start Preparation H suppository. Cranial nerve III or palsy: Lateral deviation of the right eye has seemingly resolved, and patient is not having nystagmus or diplopia currently. Continue to monitor and see if this has completely resolved. We will continue occupational therapy working with her as well as possibly utilizing patch to improve function. Decreased coordination and impaired balance: Continue to monitor, patient is making some improvement with therapy. Fall risk and should be monitored closely when standing or transferring. Poor safety awareness: Family member stayed overnight with the patient states she is still attempting to get out of bed on a regular basis. Will continue bed and chair alarms as well as a sitter. Have discussed the importance of the patient not getting out of bed and risking a fall with further injury with the patient. All records, vitals, labs and medications were reviewed. No other issues per patient, nursing or therapy. Objective - Exam Narrative Exam: MUSCULOSKELETAL SPECIALTY EXAM CONSTITUTIONAL: Well developed, well nourished, appropriately groomed. RIGHT hand dominant. RESPIRATORY: Clear to auscultation bilaterally, no increased work of breathing CARDIOVASCULAR: Regular Rate/ Rhythm, no swelling, edema or tenderness in BUE or BLE. All extremities warm. GI: + bowel sounds, soft, NTTP, nondistended. INTEGUMENTARY: Normal, no lesion, rash, masses or bruising noted in extremities. MUSCULOSKELETAL: BUE and BLE normal without defect, crepitus, subluxation, effusion, arthritic changes or TTP. R 4+/5 L 4+ /5 ROM within normal limits Tone within normal limit NEURO: Lateral deviation of right eye not noticeable upon exam today. Uncertain of patient's actual visual functioning. She is able to read signs but did run into someone while walking that should have been in clear sight. Suspect a visual field cut that is difficult to pinpoint without proper equipment. We will continue to work on scanning Sensation intact in all extremities without extinction. No tremor noted in 4 extremities. Follows 2 step commands. Aphasia not appreciated Dysarthria mild Dysphagia not appreciated Neglect not appreciated POSTURE and GAIT: Sitting posture good. Balance and gait deferred until seen with therapy. PSYCH: Alert, oriented x3, affect appears euthymic. Insight appears intact mostly, seems to be some element of cognitive deficit present. Poor safety awareness - Constitutional Vitals: Vital Signs - 12hr 10/21/20 10/21/20 10/21/20 04:35 08:04 08:19 Temperature 97.2 F L 97.9 F Pulse Rate 88 84 84 Respiratory 17 18 Rate Blood Pressure 126/60 149/76 149/76 O2 Sat by Pulse 95 98 Oximetry - Allied health notes Allied health notes reviewed: nursing, PT, ST, OT FIMS assessment as documented by PT/OT/ST: Locomotion- walk/wheelchair Ambulation Distance 50 - Labs CBC & Chem 7: 10/21/20 07:01 10/19/20 14:28 Labs: Laboratory Results - last 72 hr 10/19/20 10/19/20 10/20/20 14:28 14:28 Unknown WBC 5.6 RBC 4.38 Hgb 13.6 Hct 40.2 MCV 92 MCH 31 MCHC 34 RDW 14.8 Plt Count 203 Sodium 140 Potassium 4.0 Chloride 104.8 Carbon Dioxide 26 Anion Gap 13 BUN 13 Creatinine 0.6 Estimated GFR > 60 BUN/Creatinine Ratio 22 Glucose 89 Calcium 10.0 Urine Color Yellow Urine Turbidity Clear Urine pH 5.0 Ur Specific [place] 1.015 Urine Protein <15 mg/dl Urine Glucose (UA) Neg Urine Ketones Neg Urine Blood Mod Urine Nitrite Neg Urine Bilirubin Neg Urine Urobilinogen < 2.0 Ur Leukocyte Esterase Neg Urine WBC (Auto) 3.0 Urine RBC (Auto) 5.0 U Epithel Cells (Auto) 1.0 Urine Mucus Few 10/21/20 07:01 WBC 6.4 RBC 4.33 Hgb 13.3 Hct 39.6 MCV 92 MCH 31 MCHC 33 RDW 14.7 Plt Count 200 Sodium Potassium Chloride Carbon Dioxide Anion Gap BUN Creatinine Estimated GFR BUN/Creatinine Ratio Glucose Calcium Urine Color Urine Turbidity Urine pH Ur Specific [place] Urine Protein Urine Glucose (UA) Urine Ketones Urine Blood Urine Nitrite Urine Bilirubin Urine Urobilinogen Ur Leukocyte Esterase Urine WBC (Auto) Urine RBC (Auto) U Epithel Cells (Auto) Urine Mucus Assessment and Plan CVA: Continue Secondary Stroke Prevention (Antithrombotic, Statin (Goal LDL-C <70), BP control (Goal <140/90), GLU control (Goal A1c <7), and lifestyle modification). Monitor for recurrent stroke or post-stroke recrudescence. Continue neuromotor therapy as above. Family training when available. Monitor for post stroke depression, cognitive deficits, seizure, dysphagia, aphasia, shoulder hand syndrome, sensory deficits, spasticity, bowel/bladder deficits, sleep disturbance, vision deficits and DVT. Prognosis for recovery and Secondary Stroke Prevention discussed. Follow up with Neurology. No driving until cleared by Neurologist. Hypertension: Continue home medications which have been restarted at lower doses. Monitor blood pressure. Adjust medications as needed for normotension. Hold for hypotension. Goal SBP <140 Small amount of blood from rectum: Patient has history of hemorrhoids and is also on antiplatelet as well as heparin for DVT prophylaxis. Have stopped heparin. [place] daily CBC to monitor hemoglobin. Preparation H suppository ordered. Monitor for improvement. Possible cranial nerve III or palsy: Lateral deviation only with some nystagmus on initial exam. Improved, seems resolved. Diplopia and lateral deviation of right eye: Continue occupational therapy for improvement with scanning techniques. Monitor for improvement. Improved, seems resolved. Uncertain if the current issues with vision are related to her inability to see, poor reading, or cognitive issues. Patient was able to read signs on 10/20 except for signs with larger words. But then on while walking in the [place] with therapy she walked right into a person in a wheelchair without hesitation. Approximately an hour later she had no recollection of running into the person. Impaired balance and coordination: Continue to work with therapy, monitor for safety with transfers standing and walking. Impaired cognition: Continue speech therapy to improve patient's ability to be aware of deficits and to compensate for them if possible. Impaired safety awareness: Continue to remind patient of safety issues and improve her awareness of safety for safe return home. Patient still attempting to get out of bed per family member who spent the night with her last night. ADL dysfunction: OT will work on improving ability to perform ADLs (including assistive devices) to increase independence and decrease caregiver burden and improve functional transfers and mobility training. Difficulty walking: PT will work on gait training and proper use of assistive devices and advance as appropriate to use of stairs and outside ambulation on uneven surfaces. Unsteadiness on feet: PT will work on improving static and dynamic sitting and standing balance as well as proper use of assistive devices to decrease risk of falls. Abnormality of gait: PT will work to improve safety and efficiency of gait through neuromotor training and gait training along with instruction on proper use of assistive devices. Muscle weakness: PT & OT will work on strengthening exercises to improve functional strength including mixture of closed and open kinetic chain exercises. Debility: PT & OT will work on improving overall functional status to improve participation with ADLs, mobility and social involvement. Fatigue: PT & OT will work on improving endurance through aerobic exercises and therapeutic activity while monitoring patients tolerance for activity and vital signs as needed. DVT ppx: Heparin on hold due to rectal bleed Pain: Continue physical modalities in therapy and pain medications as needed to achieve functional pain control. Sleep: Monitor and address as needed. Bowel: Monitor and address as needed. Appetite: Monitor and address as needed. Discharge planning: Pending therapy progress and care plan meeting. Will continue discussion with therapy team, SW, patient and family. Looking at possible 10/28 discharge. Will need to determine DME requirements as we approach discharge Restrictions/ Precautions: Falls, vision WB status: FWB Functional Hx: ADLs: Independent Cognition: Independent Mobility: No AD Barriers to Discharge: Decreased mobility and ability to perform self care, balance deficits, weakness Estimated Length of Stay: 1014 days Discharge Destination: Home with family
[2020-10-21] MEDS: ACETAMINOPHEN 325 MG TAB PO PRN (21:30)
[2020-10-21] MEDS: PHENYLEPHRINE/SHARK LIVER/CCB 0.25/3/85.5%(PREP H) RECT SUPP PR SCH (21:30)
[2020-10-22 07:57] LABS: Hematocrit 39.7 % (30.3-42.9); Hemoglobin 13.2 gm/dl (10.1-14.3); Mean Corpuscular HGB Conc 33 % (30-34); Mean Corpuscular Volume 91 fl (79-97); Platelet Count 195 K/mm3 (140-440); Red Blood Count 4.38 M/mm3 (3.65-5.03); Red Cell Distribution Width 15.1 % (13.2-15.2)
--- NOTE | 2020-10-22 08:22 | Progress Note ---
Subjective Date of service: 10/22/20 Principal diagnosis: CVA Interval history: 80-year-old female who presented to the ED with confusion, diplopia and disequilibrium. Patient is unable to walk unassisted which is new for her. Right eye is deviated laterally. Symptoms started greater than 4.5 hours before presentation to the ED so she was outside the window for TPA. Teleneurology consult was obtained and suspected CVA. Head CT showed no bleed and no evidence of CVA. 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 Patient was slated for discharge due to some improvement however she still had deficits. Remainder of the work- up was performed and the patient was accepted into acute rehab. Her right eye is laterally deviated and is accompanied with end gaze nystagmus laterally and diplopia. 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 Interval History: Patient is participating in therapy and making reasonable progress. Taking rest breaks as needed. +BM. Denies pain, palpitations, dyspnea, cough, N/V, or joint pain. Still have the feeling that the patient has some amount of dementia likely that has been undiagnosed. CVA: No signs of worsening neurologic dysfunction, headache, shoulder-hand syndrome. Continue secondary stroke prevention. Vision seems to have improved however the patient did run into someone in the hallway while walking with therapy. She did not even seem to realize the person was sitting there in the wheelchair, and did not recollect this approximately an hour later. Diplopia: Seems to have improved. Patient denies any ongoing features of diplopia today. Continue to monitor Hypertension: Continue to monitor vitals and adjust medications as needed. Blood pressure has been elevated, increase losartan on 10/22 and continue to monitor. Goal blood pressure less than 140/90. Slight amount of blood from rectum: Noted by nursing, patient has history of hemorrhoids. Discontinue heparin and start Preparation H suppository. No further episodes of bleeding, hemoglobin stable Cranial nerve III or palsy: Lateral deviation of the right eye has seemingly resolved, and patient is not having nystagmus or diplopia currently. Continue to monitor and see if this has completely resolved. We will continue o ccupational therapy working with her as well as possibly utilizing patch to improve function. Decreased coordination and impaired balance: Continue to monitor, patient is making some improvement with therapy. Fall risk and should be monitored closely when standing or transferring. Poor safety awareness: Family member stayed overnight with the patient states she is still attempting to get out of bed on a regular basis. Will continue bed and chair alarms as well as a sitter. Have discussed the importance of the patient not getting out of bed and risking a fall with further injury with the patient. All records, vitals, labs and medications were reviewed. No other issues per patient, nursing or therapy. Objective - Exam Narrative Exam: MUSCULOSKELETAL SPECIALTY EXAM CONSTITUTIONAL: Well developed, well nourished, appropriately groomed. RIGHT hand dominant. RESPIRATORY: Clear to auscultation bilaterally, no increased work of breathing CARDIOVASCULAR: Regular Rate/ Rhythm, no swelling, edema or tenderness in BUE or BLE. All extremities warm. GI: + bowel sounds, soft, NTTP, nondistended. INTEGUMENTARY: Normal, no lesion, rash, masses or bruising noted in extremities. MUSCULOSKELETAL: BUE and BLE normal without defect, crepitus, subluxation, effusion, arthritic changes or TTP. R 4+/5 L 4+ /5 ROM within normal limits Tone within normal limit NEURO: Lateral deviation of right eye not noticeable upon exam today. Uncertain of patient's actual visual functioning. She is able to read signs but did run into someone while walking that should have been in clear sight. Suspect a visual field cut that is difficult to pinpoint without proper equipment. We will continue to work on scanning Sensation intact in all extremities without extinction. No tremor noted in 4 extremities. Follows 2 step commands. Aphasia not appreciated Dysarthria mild Dysphagia not appreciated Neglect not appreciated POSTURE and GAIT: Sitting posture good. Balance and gait deferred until seen with therapy. PSYCH: Alert, oriented x3, affect appears euthymic. Insight appears intact mostly, seems to be some element of cognitive deficit present. Poor safety awareness - Constitutional Vitals: Vital Signs - 12hr 10/22/20 10/22/20 05:11 07:06 Temperature 98.2 F 97.8 F Pulse Rate 86 73 Respiratory 16 18 Rate Blood Pressure 143/74 Blood Pressure 158/85 [Left] O2 Sat by Pulse 97 97 Oximetry - Allied health notes Allied health notes reviewed: nursing, PT, ST, OT FIMS assessment as documented by PT/OT/ST: Locomotion- walk/wheelchair Ambulation Distance 50 - Labs CBC & Chem 7: 10/22/20 07:43 10/19/20 14:28 Labs: Laboratory Results - last 72 hr 10/19/20 10/19/20 10/20/20 14:28 14:28 Unknown WBC 5.6 RBC 4.38 Hgb 13.6 Hct 40.2 MCV 92 MCH 31 MCHC 34 RDW 14.8 Plt Count 203 Sodium 140 Potassium 4.0 Chloride 104.8 Carbon Dioxide 26 Anion Gap 13 BUN 13 Creatinine 0.6 Estimated GFR > 60 BUN/Creatinine Ratio 22 Glucose 89 Calcium 10.0 Urine Color Yellow Urine Turbidity Clear Urine pH 5.0 Ur Specific [place] 1.015 Urine Protein <15 mg/dl Urine Glucose (UA) Neg Urine Ketones Neg Urine Blood Mod Urine Nitrite Neg Urine Bilirubin Neg Urine Urobilinogen < 2.0 Ur Leukocyte Esterase Neg Urine WBC (Auto) 3.0 Urine RBC (Auto) 5.0 U Epithel Cells (Auto) 1.0 Urine Mucus Few 10/21/20 10/22/20 07:01 07:43 WBC 6.4 5.3 RBC 4.33 4.38 Hgb 13.3 13.2 Hct 39.6 39.7 MCV 92 91 MCH 31 30 MCHC 33 33 RDW 14.7 15.1 Plt Count 200 195 Sodium Potassium Chloride Carbon Dioxide Anion Gap BUN Creatinine Estimated GFR BUN/Creatinine Ratio Glucose Calcium Urine Color Urine Turbidity Urine pH Ur Specific [place] Urine Protein Urine Glucose (UA) Urine Ketones Urine Blood Urine Nitrite Urine Bilirubin Urine Urobilinogen Ur Leukocyte Esterase Urine WBC (Auto) Urine RBC (Auto) U Epithel Cells (Auto) Urine Mucus Assessment and Plan CVA: Continue Secondary Stroke Prevention (Antithrombotic, Statin (Goal LDL-C <70), BP control (Goal <140/90), GLU control (Goal A1c <7), and lifestyle modification). Monitor for recurrent stroke or post-stroke recrudescence. Continue neuromotor therapy as above. Family training when available. Monitor for post stroke depression, cognitive deficits, seizure, dysphagia, aphasia, shoulder hand syndrome, sensory deficits, spasticity, bowel/bladder deficits, sleep disturbance, vision deficits and DVT. Prognosis for recovery and Secondary Stroke Prevention discussed. Follow up with Neurology. No driving until cleared by Neurologist. Hypertension: Continue home medications which have been restarted at lower d oses. Monitor blood pressure. Adjust medications as needed for normotension. Hold for hypotension. Goal SBP <140 Small amount of blood from rectum: Patient has history of hemorrhoids and is also on antiplatelet as well as heparin for DVT prophylaxis. Have stopped heparin. [place] daily CBC to monitor hemoglobin. Preparation H suppository ordered. Monitor for improvement. Possible cranial nerve III or palsy: Lateral deviation only with some nystagmus on initial exam. Improved, seems resolved. Diplopia and lateral deviation of right eye: Continue occupational therapy for improvement with scanning techniques. Monitor for improvement. Improved, seems resolved. Uncertain if the current issues with vision are related to her inability to see, poor reading, or cognitive issues. Patient was able to read signs on 10/20 except for signs with larger words. But then on while walking in the [place] with therapy she walked right into a person in a wheelchair without hesitation. Approximately an hour later she had no recollection of running into the person. Impaired balance and coordination: Continue to work with therapy, monitor for safety with transfers standing and walking. Impaired cognition: Continue speech therapy to improve patient's ability to be aware of deficits and to compensate for them if possible. Impaired safety awareness: Continue to remind patient of safety issues and improve her awareness of safety for safe return home. Patient still attempting to get out of bed per family member who spent the night with her last night. ADL dysfunction: OT will work on improving ability to perform ADLs (including assistive devices) to increase independence and decrease caregiver burden and improve functional transfers and mobility training. Difficulty walking: PT will work on gait training and proper use of assistive devices and advance as appropriate to use of stairs and outside ambulation on uneven surfaces. Unsteadiness on feet: PT will work on improving static and dynamic sitting and standing balance as well as proper use of assistive devices to decrease risk of falls. Abnormality of gait: PT will work to improve safety and efficiency of gait through neuromotor training and gait training along with instruction on proper use of assistive devices. Muscle weakness: PT & OT will work on strengthening exercises to improve functional strength including mixture of closed and open kinetic chain exercises. Debility: PT & OT will work on improving overall functional status to improve participation with ADLs, mobility and social involvement. Fatigue: PT & OT will work on improving endurance through aerobic exercises and therapeutic activity while monitoring patients tolerance for activity and vital signs as needed. DVT ppx: Heparin on hold due to rectal bleed Pain: Continue physical modalities in therapy and pain medications as needed to achieve functional pain control. Sleep: Monitor and address as needed. Bowel: Monitor and address as needed. Appetite: Monitor and address as needed. Discharge planning: Pending therapy progress and care plan meeting. Will continue discussion with therapy team, SW, patient and family. Looking at possible 10/28 discharge. Will need to determine DME requirements as we approach discharge Restrictions/ Precautions: Falls, vision WB status: FWB Functional Hx: ADLs: Independent Cognition: Independent Mobility: No AD Barriers to Discharge: Decreased mobility and ability to perform self care, balance deficits, weakness Estimated Length of Stay: 1014 days Discharge Destination: Home with family
[2020-10-22] MEDS: LOSARTAN 50 MG TAB PO SCH ×2 (09:35→12:14)
[2020-10-22] MEDS: CLOPIDOGREL 75 MG TAB PO SCH (09:35)
[2020-10-22] MEDS: ASPIRIN EC 81 MG TAB PO SCH (09:35)
[2020-10-22] MEDS: carvediloL 3.125 MG TAB PO SCH ×2 (09:36→21:48)
[2020-10-22] MEDS: PHENYLEPHRINE/SHARK LIVER/CCB 0.25/3/85.5%(PREP H) RECT SUPP PR SCH (21:48)
[2020-10-23] MEDS: LOSARTAN 50 MG TAB PO SCH (08:35)
[2020-10-23] MEDS: carvediloL 3.125 MG TAB PO SCH ×2 (08:35→23:03)
[2020-10-23] MEDS: ASPIRIN EC 81 MG TAB PO SCH (08:35)
[2020-10-23] MEDS: CLOPIDOGREL 75 MG TAB PO SCH (08:35)
[2020-10-23 08:55] LABS: Hematocrit 41.6 % (30.3-42.9); Hemoglobin 14.1 gm/dl (10.1-14.3); Mean Corpuscular HGB Conc 34 % (30-34); Mean Corpuscular Volume 92 fl (79-97); Platelet Count 204 K/mm3 (140-440); Red Blood Count 4.55 M/mm3 (3.65-5.03); Red Cell Distribution Width 14.9 % (13.2-15.2)
--- NOTE | 2020-10-23 14:43 | Progress Note ---
Subjective Date of service: 10/23/20 Principal diagnosis: CVA Interval history: 80-year-old female who presented to the ED with confusion, diplopia and disequilibrium. Patient is unable to walk unassisted which is new for her. Right eye is deviated laterally. Symptoms started greater than 4.5 hours before presentation to the ED so she was outside the window for TPA. Teleneurology consult was obtained and suspected CVA. Head CT showed no bleed and no evidence of CVA. Neurologist recommended typical work-up with A1c, lipid, MRI brain, MRA head and neck, echo and PT/OT/SHEET TURNER evaluation. Patient was slated for discharge due to some improvement however she still had deficits. Remainder of the work- up was performed and the patient was accepted into acute rehab. Her right eye is laterally deviated and is accompanied with end gaze nystagmus laterally and diplopia. 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 Interval History: Patient is participating in therapy and making reasonable progress. Taking rest breaks as needed. +BM. Denies pain, palpitations, dyspnea, cough, N/V, or joint pain. Still have the feeling that the patient has some amount of dementia likely that has been undiagnosed. Patient denies any further bleeding from the rectum. Hemoglobin stable. Spoke with the patient and her daughter at length concerning progress and discharge. Approximately 40 minutes was spent in patient care today with greater than 50% of that time counseling and coordinating care. CVA: No signs of worsening neurologic dysfunction, headache, shoulder-hand syndrome. Continue secondary stroke prevention. Diplopia: Seems to have improved. Patient denies any ongoing features of diplopia today. Continue to monitor. Patient is able to look around room and pick out objects, is able to read items as well. I do not think that she is still having problems with vision, running into a patient last week may have b een more of inattention issue than a visual issue. Hypertension: Continue to monitor vitals and adjust medications as needed. Blood pressure has been elevated, increase losartan on 10/22 and continue to monitor. Goal blood pressure less than 140/90. Slight amount of blood from rectum: Noted by nursing, patient has history of hemorrhoids. Discontinue heparin and start Preparation H suppository. No further episodes of bleeding, hemoglobin stable Cranial nerve III or palsy: Lateral deviation of the right eye has seemingly resolved, and patient is not having nystagmus or diplopia currently. Continue to monitor and see if this has completely resolved. We will continue occupational therapy working with her to improve function, seems much improved. Decreased coordination and impaired balance: Continue to monitor, patient is making some improvement with therapy. Fall risk and should be monitored closely when standing or transferring. Poor safety awareness: Family member stayed overnight with the patient states she is still attempting to get out of bed on a regular basis. Will continue bed and chair alarms as well as a sitter. Have discussed the importance of the patient not getting out of bed and risking a fall with further injury with the patient. All records, vitals, labs and medications were reviewed. No other issues per patient, nursing or therapy. Objective - Exam Narrative Exam: MUSCULOSKELETAL SPECIALTY EXAM CONSTITUTIONAL: Well developed, well nourished, appropriately groomed. RIGHT hand dominant. RESPIRATORY: Clear to auscultation bilaterally, no increased work of breathing CARDIOVASCULAR: Regular Rate/ Rhythm, no swelling, edema or tenderness in BUE or BLE. All extremities warm. GI: + bowel sounds, soft, NTTP, nondistended. INTEGUMENTARY: Normal, no lesion, rash, masses or bruising noted in extremities. MUSCULOSKELETAL: BUE and BLE normal without defect, crepitus, subluxation, effusion, arthritic changes or TTP. R 4+/5 L 4+ /5 ROM within normal limits Tone within normal limit NEURO: Lateral deviation of right eye not noticeable upon exam today. Uncertain of patient's actual visual functioning. She is able to read signs but did run into someone while walking that should have been in clear sight. Suspect a visual field cut that is difficult to pinpoint without proper equipment. We will continue to work on scanning Sensation intact in all extremities without extinction. No tremor noted in 4 extremities. Follows 2 step commands. Aphasia not appreciated Dysarthria mild Dysphagia not appreciated Neglect not appreciated, likely inattention POSTURE and GAIT: Sitting posture good. Balance and gait deferred until seen with therapy. PSYCH: Alert, oriented x3, affect appears euthymic. Insight appears intact mostly, seems to be some element of cognitive deficit present. Poor safety awareness - Constitutional Vitals: Vital Signs - 12hr 10/23/20 10/23/20 10/23/20 04:30 08:25 12:37 Temperature 98.3 F 97.4 F L 97.6 F Pulse Rate 73 71 69 Respiratory 16 16 6 L Rate Blood Pressure 142/68 Blood Pressure 130/69 129/67 [Left] O2 Sat by Pulse 95 97 97 Oximetry - Allied health notes Allied health notes reviewed: nursing, PT, ST, OT FIMS assessment as documented by PT/OT/ST: Locomotion- walk/wheelchair Ambulation Distance 50 - Labs CBC & Chem 7: 10/23/20 07:44 10/19/20 14:28 Labs: Laboratory Results - last 72 hr 10/21/20 10/22/20 10/23/20 07:01 07:43 07:44 WBC 6.4 5.3 7.0 RBC 4.33 4.38 4.55 Hgb 13.3 13.2 14.1 Hct 39.6 39.7 41.6 MCV 92 91 92 MCH 31 30 31 MCHC 33 33 34 RDW 14.7 15.1 14.9 Plt Count 200 195 204 Assessment and Plan CVA: Continue Secondary Stroke Prevention (Antithrombotic, Statin (Goal LDL-C <70), BP control (Goal <140/90), GLU control (Goal A1c <7), and lifestyle modification). Monitor for recurrent stroke or post-stroke recrudescence. Continue neuromotor therapy as above. Family training when available. Monitor for post stroke depression, cognitive deficits, seizure, dysphagia, aphasia, shoulder hand syndrome, sensory deficits, spasticity, bowel/bladder deficits, sleep disturbance, vision deficits and DVT. Prognosis for recovery and Secondary Stroke Prevention discussed. Follow up with Neurology. No driving until cleared by Neurologist. Hypertension: Continue home medications which have been restarted at lower doses. Monitor blood pressure. Adjust medications as needed for normotension. Hold for hypotension. Goal SBP <140 Small amount of blood from rectum: Patient has history of hemorrhoids and is als o on antiplatelet as well as heparin for DVT prophylaxis. Have stopped heparin. [place] daily CBC to monitor hemoglobin. Preparation H suppository ordered. Monitor for improvement. Possible cranial nerve III or palsy: Lateral deviation only with some nystagmus on initial exam. Improved, seems resolved. Diplopia and lateral deviation of right eye: Continue occupational therapy for improvement with scanning techniques. Monitor for improvement. Improved, seems resolved. Uncertain if the current issues with vision are related to her inability to see, poor reading, or cognitive issues. Patient was able to read signs on 10/20 except for signs with larger words. But then on while walking in the [place] with therapy she walked right into a person in a wheelchair without hesitation. Approximately an hour later she had no recollection of running into the person. Impaired balance and coordination: Continue to work with therapy, monitor for safety with transfers standing and walking. Impaired cognition: Continue speech therapy to improve patient's ability to be aware of deficits and to compensate for them if possible. Impaired safety awareness: Continue to remind patient of safety issues and improve her awareness of safety for safe return home. Patient still attempting to get out of bed per family member who spent the night with her last night. ADL dysfunction: OT will work on improving ability to perform ADLs (including assistive devices) to increase independence and decrease caregiver burden and improve functional transfers and mobility training. Difficulty walking: PT will work on gait training and proper use of assistive devices and advance as appropriate to use of stairs and outside ambulation on uneven surfaces. Unsteadiness on feet: PT will work on improving static and dynamic sitting and standing balance as well as proper use of assistive devices to decrease risk of falls. Abnormality of gait: PT will work to improve safety and efficiency of gait through neuromotor training and gait training along with instruction on proper use of assistive devices. Muscle weakness: PT & OT will work on strengthening exercises to improve functional strength including mixture of closed and open kinetic chain exercises. Debility: PT & OT will work on improving overall functional status to improve participation with ADLs, mobility and social involvement. Fatigue: PT & OT will work on improving endurance through aerobic exercises and therapeutic activity while monitoring patients tolerance for activity and vital signs as needed. DVT ppx: Heparin on hold due to rectal bleed Pain: Continue physical modalities in therapy and pain medications as needed to achieve functional pain control. Sleep: Monitor and address as needed. Bowel: Monitor and address as needed. Appetite: Monitor and address as needed. Discharge planning: Pending therapy progress and care plan meeting. Will continue discussion with therapy team, SW, patient and family. Looking at possible 10/28 discharge. Will need to determine DME requirements as we approach discharge Restrictions/ Precautions: Falls, vision WB status: FWB Functional Hx: ADLs: Independent Cognition: Independent Mobility: No AD Barriers to Discharge: Decreased mobility and ability to perform self care, balance deficits, weakness Estimated Length of Stay: 1014 days Discharge Destination: Home with family
[2020-10-24] MEDS: ASPIRIN EC 81 MG TAB PO SCH (08:26)
[2020-10-24] MEDS: CLOPIDOGREL 75 MG TAB PO SCH (08:27)
[2020-10-24] MEDS: LOSARTAN 50 MG TAB PO SCH (08:27)
[2020-10-24] MEDS: carvediloL 3.125 MG TAB PO SCH ×2 (08:27→21:24)
[2020-10-24 10:03] LABS: Hematocrit 43.2 % (30.3-42.9); Mean Corpuscular HGB Conc 32 % (30-34); Mean Corpuscular Volume 94 fl (79-97); Platelet Count 195 K/mm3 (140-440); Red Blood Count 4.58 M/mm3 (3.65-5.03); Red Cell Distribution Width 15.2 % (13.2-15.2)
[2020-10-25] MEDS: LOSARTAN 50 MG TAB PO SCH (08:38)
[2020-10-25] MEDS: ASPIRIN EC 81 MG TAB PO SCH (08:38)
[2020-10-25] MEDS: carvediloL 3.125 MG TAB PO SCH (08:38)
[2020-10-25] MEDS: CLOPIDOGREL 75 MG TAB PO SCH (08:38)
--- NOTE | 2020-10-25 09:53 | Progress Note ---
Subjective Date of service: 10/25/20 Principal diagnosis: CVA Interval history: 80-year-old female who presented to the ED with confusion, diplopia and disequilibrium. Patient is unable to walk unassisted which is new for her. Right eye is deviated laterally. Symptoms started greater than 4.5 hours before presentation to the ED so she was outside the window for TPA. Teleneurology consult was obtained and suspected CVA. Head CT showed no bleed and no evidence of CVA. Neurologist recommended typical work-up with A1c, lipid, MRI brain, MRA head and neck, echo and PT/OT/[employer] evaluation. Patient was slated for discharge due to some improvement however she still had deficits. Remainder of the work- up was performed and the patient was accepted into acute rehab. Her right eye is laterally deviated and is accompanied with end gaze nystagmus laterally and diplopia. 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 Interval History: Patient is participating in therapy and making reasonable progress. Taking rest breaks as needed. +BM. Denies pain, palpitations, dyspnea, cough, N/V, or joint pain. Still have the feeling that the patient has some amount of dementia likely that has been undiagnosed. Patient denies any further bleeding from the rectum. Hemoglobin stable. CVA: No signs of worsening neurologic dysfunction, headache, shoulder-hand syndrome. Continue secondary stroke prevention. Diplopia: Seems to have improved. Patient denies any ongoing features of diplopia today. Continue to monitor. Patient is able to look around room and pick out objects, is able to read items as well. I do not think that she is still having problems with vision, running into a patient last week may have been more of inattention issue than a visual issue. Hypertension: Continue to monitor vitals and adjust medications as needed. Blood pressure has been elevated variable, BP is again increased despite the increase of losartan on 10/22 and continue to monitor. Will increase carvedilol today. Goal blood pressure less than 140/90. Slight amount of blood from rectum: Noted by nursing, patient has history of he morrhoids. Discontinue heparin and start Preparation H suppository. No further episodes of bleeding, hemoglobin stable Cranial nerve III or palsy: Lateral deviation of the right eye has seemingly resolved, and patient is not having nystagmus or diplopia currently. Continue to monitor and see if this has completely resolved. We will continue occupational therapy working with her to improve function, seems much improved. Decreased coordination and impaired balance: Continue to monitor, patient is making some improvement with therapy. Fall risk and should be monitored closely when standing or transferring. Poor safety awareness: Family member stayed overnight with the patient states she is still attempting to get out of bed on a regular basis. Will continue bed and chair alarms as well as a sitter. Have discussed the importance of the patient not getting out of bed and risking a fall with further injury with the patient. All records, vitals, labs and medications were reviewed. No other issues per patient, nursing or therapy. Objective - Exam Narrative Exam: MUSCULOSKELETAL SPECIALTY EXAM CONSTITUTIONAL: Well developed, well nourished, appropriately groomed. RIGHT hand dominant. RESPIRATORY: Clear to auscultation bilaterally, no increased work of breathing CARDIOVASCULAR: Regular Rate/ Rhythm, no swelling, edema or tenderness in BUE or BLE. All extremities warm. GI: + bowel sounds, soft, NTTP, nondistended. INTEGUMENTARY: Normal, no lesion, rash, masses or bruising noted in extremities. MUSCULOSKELETAL: BUE and BLE normal without defect, crepitus, subluxation, effusion, arthritic changes or TTP. R 4+/5 L 4+ /5 ROM within normal limits Tone within normal limit NEURO: Lateral deviation of right eye not noticeable upon exam today. Uncertain of patient's actual visual functioning. She is able to read signs but did run into someone while walking that should have been in clear sight. Suspect a visual field cut that is difficult to pinpoint without proper equipment. We will continue to work on scanning Sensation intact in all extremities without extinction. No tremor noted in 4 extremities. Follows 2 step commands. Aphasia not appreciated Dysarthria mild Dysphagia not appreciated Neglect not appreciated, likely inattention POSTURE and GAIT: Sitting posture good. Balance and gait deferred until seen with therapy. PSYCH: Alert, oriented x3, affect appears euthymic. Insight appears intact mostly, seems to be some element of cognitive deficit present. Poor safety awareness - Constitutional Vitals: Vital Signs - 12hr 10/24/20 10/25/20 10/25/20 22:00 04:44 07:36 Temperature 98.4 F 97.8 F Pulse Rate 90 74 Respiratory 17 16 18 Rate Blood Pressure 149/82 142/71 O2 Sat by Pulse 94 95 Oximetry - Allied health notes Allied health notes reviewed: nursing, PT, ST, OT FIMS assessment as documented by PT/OT/ST: Locomotion- walk/wheelchair Ambulation Distance 50 - Labs CBC & Chem 7: 10/24/20 09:25 10/19/20 14:28 Labs: Laboratory Results - last 72 hr 10/23/20 10/24/20 07:44 09:25 WBC 7.0 8.2 RBC 4.55 4.58 Hgb 14.1 14.0 Hct 41.6 43.2 H MCV 92 94 MCH 31 31 MCHC 34 32 RDW 14.9 15.2 Plt Count 204 195 Assessment and Plan CVA: Continue Secondary Stroke Prevention (Antithrombotic, Statin (Goal LDL-C <70), BP control (Goal <140/90), GLU control (Goal A1c <7), and lifestyle daquan fication). Monitor for recurrent stroke or post-stroke recrudescence. Continue neuromotor therapy as above. Family training when available. Monitor for post stroke depression, cognitive deficits, seizure, dysphagia, aphasia, shoulder hand syndrome, sensory deficits, spasticity, bowel/bladder deficits, sleep disturbance, vision deficits and DVT. Prognosis for recovery and Secondary Stroke Prevention discussed. Follow up with Neurology. No driving until cleared by Neurologist. Hypertension: Continue home medications which have been restarted at lower doses. Monitor blood pressure. Adjust medications as needed for normotension. Hold for hypotension. Goal SBP <140 Small amount of blood from rectum: Patient has history of hemorrhoids and is also on antiplatelet as well as heparin for DVT prophylaxis. Have stopped heparin. [place] daily CBC to monitor hemoglobin. Preparation H suppository ordered. Monitor for improvement. Possible cranial nerve III or palsy: Lateral deviation only with some nystagmus on initial exam. Improved, seems resolved. Diplopia and lateral deviation of right eye: Continue occupational therapy for improvement with scanning techniques. Monitor for improvement. Improved, seems resolved. Uncertain if the current issues with vision are related to her inability to see, poor reading, or cognitive issues. Patient was able to read signs on 10/20 except for signs with larger words. But then on while walking in the [place] with therapy she walked right into a person in a wheelchair without hesitation. Approximately an hour later she had no recollection of running into the person. Impaired balance and coordination: Continue to work with therapy, monitor for safety with transfers standing and walking. Impaired cognition: Continue speech therapy to improve patient's ability to be aware of deficits and to compensate for them if possible. Impaired safety awareness: Continue to remind patient of safety issues and improve her awareness of safety for safe return home. Patient still attempting to get out of bed per family member who spent the night with her last night. ADL dysfunction: OT will work on improving ability to perform ADLs (including assistive devices) to increase independence and decrease caregiver burden and improve functional transfers and mobility training. Difficulty walking: PT will work on gait training and proper use of assistive devices and advance as appropriate to use of stairs and outside ambulation on uneven surfaces. Unsteadiness on feet: PT will work on improving static and dynamic sitting and standing balance as well as proper use of assistive devices to decrease risk of falls. Abnormality of gait: PT will work to improve safety and efficiency of gait through neuromotor training and gait training along with instruction on proper use of assistive devices. Muscle weakness: PT & OT will work on strengthening exercises to improve functional strength including mixture of closed and open kinetic chain exercises. Debility: PT & OT will work on improving overall functional status to improve participation with ADLs, mobility and social involvement. Fatigue: PT & OT will work on improving endurance through aerobic exercises and therapeutic activity while monitoring patients tolerance for activity and vital signs as needed. DVT ppx: Heparin on hold due to rectal bleed Pain: Continue physical modalities in therapy and pain medications as needed to achieve functional pain control. Sleep: Monitor and address as needed. Bowel: Monitor and address as needed. Appetite: Monitor and address as needed. Discharge planning: Pending therapy progress and care plan meeting. Will con tinue discussion with therapy team, SW, patient and family. Looking at possible 10/28 discharge. Will need to determine DME requirements as we approach discharge Restrictions/ Precautions: Falls, vision WB status: FWB Functional Hx: ADLs: Independent Cognition: Independent Mobility: No AD Barriers to Discharge: Decreased mobility and ability to perform self care, balance deficits, weakness Estimated Length of Stay: 1014 days Discharge Destination: Home with family
[2020-10-25] MEDS ORDERED: carvediloL 3.125 MG TAB PO SCH ×2 (09:54→10:30)
[2020-10-25] MEDS: carvediloL 6.25 MG TAB PO SCH (21:19)
--- NOTE | 2020-10-26 07:37 | Progress Note ---
Subjective Date of service: 10/26/20 Principal diagnosis: CVA Interval history: 80-year-old female who presented to the ED with confusion, diplopia and disequilibrium. Patient is unable to walk unassisted which is new for her. Right eye is deviated laterally. Symptoms started greater than 4.5 hours before presentation to the ED so she was outside the window for TPA. Teleneurology consult was obtained and suspected CVA. Head CT showed no bleed and no evidence of CVA. 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 Patient was slated for discharge due to some improvement however she still had deficits. Remainder of the work- up was performed and the patient was accepted into acute rehab. Her right eye is laterally deviated and is accompanied with end gaze nystagmus laterally and diplopia. 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 Interval History: Patient is participating in therapy and making reasonable progress. Taking rest breaks as needed. +BM. Denies pain, palpitations, dyspnea, cough, N/V, or joint pain. Still have the feeling that the patient has some amount of dementia likely that has been undiagnosed. Patient denies any further bleeding from the rectum. Hemoglobin stable. CVA: No signs of worsening neurologic dysfunction, headache, shoulder-hand syndrome. Continue secondary stroke prevention. Diplopia: Seems to have improved. Patient denies any ongoing features of diplopia today. Continue to monitor. Patient is able to look around room and pick out objects, is able to read items as well. I do not think that she is still having problems with vision, running into a patient last week may have been more of inattention issue than a visual issue. Hypertension: Continue to monitor vitals and adjust medications as needed. Blood pressure slightly variable despite increases in home doses. Goal blood pressure less than 140/90. Slight amount of blood from rectum: Noted by nursing, patient has history of hemorrhoids. Discontinue heparin and start Preparation H suppository. No further episodes of bleeding, hemoglobin stable Cranial nerve III or palsy: Lateral deviation of the right eye has resolved, and patient is not having nystagmus or diplopia currently. Continue to monitor and see if this has completely resolved. Decreased coordination and impaired balance: Continue to monitor, patient is making some improvement with therapy. Fall risk and should be monitored closely when standing or transferring. Poor safety awareness: Family member stayed overnight with the patient states she is still attempting to get out of bed on a regular basis. Will continue bed and chair alarms. Have discussed the importance of the patient not getting out of bed and risking a fall with further injury with the patient. All records, vitals, labs and medications were reviewed. No other issues per patient, nursing or therapy. Patient discussed during team conference today. Based on the patient's progress, looks like she is going to continue to require 24/7 care. Will need to contact the family to see if they are able to provide that level of care at home as I believe they are typically working during the day. Patient may be appropriate for nursing home facility at this point if care cannot be provided at home. Still seems to be some level of early stages of dementia present. Prior to the stroke patient was very independent according to the family but that was also within her home environment. Decreased attention to the right still present at times but not at other times. Will likely look to discharge on November 03 in order to give the patient more time to improve if possible and go home. Objective - Exam Narrative Exam: MUSCULOSKELETAL SPECIALTY EXAM CONSTITUTIONAL: Well developed, well nourished, appropriately groomed. RIGHT hand dominant. RESPIRATORY: Clear to auscultation bilaterally, no increased work of breathing CARDIOVASCULAR: Regular Rate/ Rhythm, no swelling, edema or tenderness in BUE or BLE. All extremities warm. GI: + bowel sounds, soft, NTTP, nondistended. INTEGUMENTARY: Normal, no lesion, rash, masses or bruising noted in extremities. MUSCULOSKELETAL: BUE and BLE normal without defect, crepitus, subluxation, effusion, arthritic changes or TTP. R 4+/5 L 4+ /5 ROM within normal limits Tone within normal limit NEURO: Lateral deviation of right eye not noticeable upon exam today. Uncertain of patient's actual visual functioning. She is able to read signs but did run into someone while walking that should have been in clear sight. Suspect a visual field cut that is difficult to pinpoint without proper equipment. We will continue to work on scanning Sensation intact in all extremities without extinction. No tremor noted in 4 extremities. Follows 2 step commands. Aphasia not appreciated Dysarthria mild Dysphagia not appreciated Neglect not appreciated, likely inattention POSTURE and GAIT: Sitting posture good. Balance and gait deferred until seen with therapy. PSYCH: Alert, oriented x3, affect appears euthymic. Insight appears intact mostly, seems to be some element of cognitive deficit present. Poor safety awareness - Constitutional Vitals: Vital Signs - 12hr 10/25/20 10/25/20 10/26/20 21:19 22:00 05:21 Temperature 98.4 F Pulse Rate 79 67 Respiratory 17 16 Rate Blood Pressure 159/84 124/62 O2 Sat by Pulse 95 Oximetry - Allied health notes Allied health notes reviewed: nursing, PT, ST, OT FIMS assessment as documented by PT/OT/ST: Locomotion- walk/wheelchair Ambulation Distance 50 - Labs CBC & Chem 7: 10/24/20 09:25 10/19/20 14:28 Labs: Laboratory Results - last 72 hr 10/23/20 10/24/20 07:44 09:25 WBC 7.0 8.2 RBC 4.55 4.58 Hgb 14.1 14.0 Hct 41.6 43.2 H MCV 92 94 MCH 31 31 MCHC 34 32 RDW 14.9 15.2 Plt Count 204 195 Assessment and Plan CVA: Continue Secondary Stroke Prevention (Antithrombotic, Statin (Goal LDL-C <70), BP control (Goal <140/90), GLU control (Goal A1c <7), and lifestyle modification). Monitor for recurrent stroke or post-stroke recrudescence. Continue neuromotor therapy as above. Family training when available. Monitor for post stroke depression, cognitive deficits, seizure, dysphagia, aphasia, shoulder hand syndrome, sensory deficits, spasticity, bowel/bladder deficits, sleep disturbance, vision deficits and DVT. Prognosis for recovery and Secondary Stroke Prevention discussed. Follow up with Neurology. No driving until cleared by Neurologist. Hypertension: Continue home medications which have been restarted at lower doses. Monitor blood pressure. Adjust medications as needed for normotension. Hold for hypotension. Goal SBP <140 Small amount of blood from rectum: Patient has history of hemorrhoids and is also on antiplatelet as well as heparin for DVT prophylaxis. Have stopped heparin. Alpha daily CBC to monitor hemoglobin. Preparation H suppository ordered. Monitor for improvement. Possible cranial nerve III or palsy: Lateral deviation only with some nystagmus on initial exam. Improved, seems resolved. Diplopia and lateral deviation of right eye: Continue occupational therapy for improvement with scanning techniques. Monitor for improvement. Improved, seems resolved. Uncertain if the current issues with vision are related to her inability to see, poor reading, or cognitive issues. Patient was able to read signs on 10/20 except for signs with larger words. But then on while walking in the [place] with therapy she walked right into a person in a wheelchair without hesitation. Approximately an hour later she had no recollection of running into the person. Impaired balance and coordination: Continue to work with therapy, monitor for safety with transfers standing and walking. Impaired cognition: Continue speech therapy to improve patient's ability to be aware of deficits and to compensate for them if possible. Impaired safety awareness: Continue to remind patient of safety issues and improve her awareness of safety for safe return home. Patient still attempting to get out of bed per family member who spent the night with her last night. ADL dysfunction: OT will work on improving ability to perform ADLs (including assistive devices) to increase independence and decrease caregiver burden and improve functional transfers and mobility training. Difficulty walking: PT will work on gait training and proper use of assistive devices and advance as appropriate to use of stairs and outside ambulation on uneven surfaces. Unsteadiness on feet: PT will work on improving static and dynamic sitting and standing balance as well as proper use of assistive devices to decrease risk of falls. Abnormality of gait: PT will work to improve safety and efficiency of gait through neuromotor training and gait training along with instruction on proper use of assistive devices. Muscle weakness: PT & OT will work on strengthening exercises to improve functional strength including mixture of closed and open kinetic chain exercises. Debility: PT & OT will work on improving overall functional status to improve participation with ADLs, mobility and social involvement. Fatigue: PT & OT will work on improving endurance through aerobic exercises and therapeutic activity while monitoring patients tolerance for activity and vital signs as needed. DVT ppx: Heparin on hold due to rectal bleed Pain: Continue physical modalities in therapy and pain medications as needed to achieve functional pain control. Sleep: Monitor and address as needed. Bowel: Monitor and address as needed. Appetite: Monitor and address as needed. Discharge planning: Pending therapy progress and care plan meeting. Will continue discussion with therapy team, SW, patient and family. Looking at possible 10/28 discharge. Will need to determine DME requirements as we approach discharge Restrictions/ Precautions: Falls, vision WB status: FWB Functional Hx: ADLs: Independent Cognition: Independent Mobility: No AD Barriers to Discharge: Decreased mobility and ability to perform self care, balance deficits, weakness Estimated Length of Stay: 1014 days Discharge Destination: Home with family
[2020-10-26] MEDS: carvediloL 6.25 MG TAB PO SCH ×2 (11:28→22:28)
[2020-10-26] MEDS: ASPIRIN EC 81 MG TAB PO SCH (11:29)
[2020-10-26] MEDS: LOSARTAN 50 MG TAB PO SCH (11:29)
[2020-10-26] MEDS: CLOPIDOGREL 75 MG TAB PO SCH (11:29)
[2020-10-27 10:21] LABS: Hematocrit 44.8 % (30.3-42.9); Hemoglobin 15.1 gm/dl (10.1-14.3); Mean Corpuscular HGB Conc 34 % (30-34); Mean Corpuscular Volume 92 fl (79-97); Platelet Count 204 K/mm3 (140-440); Red Blood Count 4.87 M/mm3 (3.65-5.03); Red Cell Distribution Width 14.5 % (13.2-15.2)
[2020-10-27 10:56] LABS: Blood Urea Nitrogen 13 mg/dL (7-17); Calcium 10.4 mg/dL (8.4-10.2); Hemolysis Index 179
[2020-10-27 11:20] LABS: BUN/Creatinine Ratio 22
[2020-10-27] MEDS: LOSARTAN 50 MG TAB PO SCH (12:03)
[2020-10-27] MEDS: carvediloL 6.25 MG TAB PO SCH ×2 (12:04→21:37)
[2020-10-27] MEDS: ASPIRIN EC 81 MG TAB PO SCH (12:18)
[2020-10-27] MEDS: CLOPIDOGREL 75 MG TAB PO SCH (12:18)
--- NOTE | 2020-10-27 14:08 | Progress Note ---
Subjective Date of service: 10/27/20 Principal diagnosis: CVA Interval history: 80-year-old female who presented to the ED with confusion, diplopia and disequilibrium. Patient is unable to walk unassisted which is new for her. Right eye is deviated laterally. Symptoms started greater than 4.5 hours before presentation to the ED so she was outside the window for TPA. Teleneurology consult was obtained and suspected CVA. Head CT showed no bleed and no evidence of CVA. 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 Patient was slated for discharge due to some improvement however she still had deficits. Remainder of the work- up was performed and the patient was accepted into acute rehab. Her right eye is laterally deviated and is accompanied with end gaze nystagmus laterally and diplopia. 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 Interval History: Patient is participating in therapy and making reasonable progress. Taking rest breaks as needed. +BM. Denies pain, palpitations, dyspnea, cough, N/V, or joint pain. Still have the feeling that the patient has some amount of dementia likely that has been undiagnosed. Patient denies any further bleeding from the rectum. Hemoglobin stable. CVA: No signs of worsening neurologic dysfunction, headache, shoulder-hand syndrome. Continue secondary stroke prevention. Diplopia: Seems to have improved. Patient denies any ongoing features of diplopia today. Continue to monitor. Patient is able to look around room and pick out objects, is able to read items as well. I do not think that she is still having problems with vision, running into a patient last week may have been more of inattention issue than a visual issue. Hypertension: Continue to monitor vitals and adjust medications as needed. Blood pressure slightly variable despite increases in home doses. Goal blood pressure less than 140/90. Hyperkalemia: 5.7 today, 1 dose Kayexalate and recheck labs in the morning. Decreased coordination and impaired balance: Continue to monitor, patient is making some improvement with therapy. Fall risk and should be monitored closely when standing or transferring. Poor safety awareness: Family member stayed overnight with the patient states she is still attempting to get out of bed on a regular basis. Will continue bed and chair alarms. Have discussed the importance of the patient not getting out of bed and risking a fall with further injury with the patient. Slight amount of blood from rectum: Noted by nursing, patient has history of hemorrhoids. No further episodes of bleeding, hemoglobin stable seems resolved. Cranial nerve III or palsy: Lateral deviation of the right eye has resolved, and patient is not having nystagmus or diplopia currently. Continue to monitor and see if this has completely resolved. All records, vitals, labs and medications were reviewed. No other issues per patient, nursing or therapy. Objective - Exam Narrative Exam: MUSCULOSKELETAL SPECIALTY EXAM CONSTITUTIONAL: Well developed, well nourished, appropriately groomed. RIGHT hand dominant. RESPIRATORY: Clear to auscultation bilaterally, no increased work of breathing CARDIOVASCULAR: Regular Rate/ Rhythm, no swelling, edema or tenderness in BUE or BLE. All extremities warm. GI: + bowel sounds, soft, NTTP, nondistended. INTEGUMENTARY: Normal, no lesion, rash, masses or bruising noted in extremities. MUSCULOSKELETAL: BUE and BLE normal without defect, crepitus, subluxation, effusion, arthritic changes or TTP. R 4+/5 L 4+ /5 ROM within normal limits Tone within normal limit NEURO: Lateral deviation of right eye not noticeable upon exam today. Uncertain of patient's actual visual functioning. She is able to read signs but did run into someone while walking that should have been in clear sight. Suspect a visual field cut that is difficult to pinpoint without proper equipment. We will continue to work on scanning Sensation intact in all extremities without extinction. No tremor noted in 4 extremities. Follows 2 step commands. Aphasia not appreciated Dysarthria mild Dysphagia not appreciated Neglect not appreciated, likely inattention POSTURE and GAIT: Sitting posture good. Balance and gait deferred until seen with therapy. PSYCH: Alert, oriented x3, affect appears euthymic. Insight appears intact mostly, seems to be some element of cognitive deficit present. Poor safety awareness - Constitutional Vitals: Vital Signs - 12hr 10/27/20 10/27/20 10/27/20 07:01 11:28 12:04 Temperature 97.0 F L 97.7 F Pulse Rate 75 66 Respiratory 16 18 Rate Blood Pressure 110/58 108/59 108/59 O2 Sat by Pulse 95 97 Oximetry - Allied health notes Allied health notes reviewed: nursing, PT, ST, OT FIMS assessment as documented by PT/OT/ST: Social interaction/Memory/Problem solving Social Interaction FIM Score 6. Mod. [place] (Mostly appropriate. May need meds. No supv.) Memory FIM Score 3. Moderate Assistance (Recognizes and remembers 50-74%.) Problem Solving FIM Score 4. Minimal Assistance (Solves routine problems 75-90%.) Transfers Mode of Locomotion: Wheelchair Patient transferred to: Shower Shower Transfers FIM Score 5. Supervision (Needs supv. or set-up with device.) Locomotion- walk/wheelchair Ambulation Distance 50 Eating Eating FIM Score 5. Supervision/Set-Up (Needs help w/ containers, cutting meat, etc.) Dressing-Upper body Patient retrieves clothing No items: Patient applies/removes UE No prosthesis or orthosis: Upper Body Dressing FIM Score 5. Supv./Set-Up ([place] sets out clothes or applies pros./orth.) Dressing-lower body Patient retrieves clothing No items: Patient applies/removes LE No prosthesis or orthosis: Lower Body Dressing FIM Score 4. Minimal Assistance (Patient = 75% or more. Needs touching.) - Labs CBC & Chem 7: 10/27/20 09:07 10/28/20 09:44 Labs: Laboratory Results - last 72 hr 10/27/20 10/27/20 09:07 09:07 WBC 7.3 RBC 4.87 Hgb 15.1 H Hct 44.8 H MCV 92 MCH 31 MCHC 34 RDW 14.5 Plt Count 204 Sodium 136 L Potassium 5.7 H Chloride 102.7 Carbon Dioxide 19 L Anion Gap 20 BUN 13 Creatinine 0.6 Estimated GFR > 60 BUN/Creatinine Ratio 22 Glucose 127 H Calcium 10.4 H Assessment and Plan CVA: Continue Secondary Stroke Prevention (Antithrombotic, Statin (Goal LDL-C <70), BP control (Goal <140/90), GLU control (Goal A1c <7), and lifestyle modification). Monitor for recurrent stroke or post-stroke recrudescence. Continue neuromotor therapy as above. Family training when available. Monitor for post stroke depression, cognitive deficits, seizure, dysphagia, aphasia, shoulder hand syndrome, sensory deficits, spasticity, bowel/bladder deficits, sleep disturbance, vision deficits and DVT. Prognosis for recovery and Secondary Stroke Prevention discussed. Follow up with Neurology. No driving until cleared by Neurologist. Hypertension: Continue home medications which have been restarted at lower doses. Monitor blood pressure. Adjust medications as needed for normotension. Hold for hypotension. Goal SBP <140 Hyperkalemia: Kayexalate, recheck labs. Monitor Small amount of blood from rectum: Patient has history of hemorrhoids and is also on antiplatelet as well as heparin for DVT prophylaxis. Have stopped heparin. [place] daily CBC to monitor hemoglobin. Preparation H suppository ordered. Monitor for improvement. Possible cranial nerve III or palsy: Lateral deviation only with some nystagmus on initial exam. Improved, seems resolved. Diplopia and lateral deviation of right eye: Continue occupational therapy for improvement with scanning techniques. Monitor for improvement. Improved, seems resolved. Uncertain if the current issues with vision are related to her inability to see, poor reading, or cognitive issues. Patient was able to read signs on 10/20 except for signs with larger words. But then on while walking in the [place] with therapy she walked right into a person in a wheelchair without hesitation. Approximately an hour later she had no recollection of running into the person. Impaired balance and coordination: Continue to work with therapy, monitor for safety with transfers standing and walking. Impaired cognition: Continue speech therapy to improve patient's ability to be aware of deficits and to compensate for them if possible. Impaired safety awareness: Continue to remind patient of safety issues and improve her awareness of safety for safe return home. Patient still attempting to get out of bed per family member who spent the night with her last night. ADL dysfunction: OT will work on improving ability to perform ADLs (including assistive devices) to increase independence and decrease caregiver burden and improve functional transfers and mobility training. Difficulty walking: PT will work on gait training and proper use of assistive devices and advance as appropriate to use of stairs and outside ambulation on uneven surfaces. Unsteadiness on feet: PT will work on improving static and dynamic sitting and standing balance as well as proper use of assistive devices to decrease risk of falls. Abnormality of gait: PT will work to improve safety and efficiency of gait through neuromotor training and gait training along with instruction on proper use of assistive devices. Muscle weakness: PT & OT will work on strengthening exercises to improve functional strength including mixture of closed and open kinetic chain exercises. Debility: PT & OT will work on improving overall functional status to improve participation with ADLs, mobility and social involvement. Fatigue: PT & OT will work on improving endurance through aerobic exercises and therapeutic activity while monitoring patients tolerance for activity and vital signs as needed. DVT ppx: Heparin on hold due to rectal bleed Pain: Continue physical modalities in therapy and pain medications as needed to achieve functional pain control. Sleep: Monitor and address as needed. Bowel: Monitor and address as needed. Appetite: Monitor and address as needed. Discharge planning: Pending therapy progress and care plan meeting. Will continue discussion with therapy team, SW, patient and family. Looking at possible 10/28 discharge. Will need to determine DME requirements as we approach discharge Restrictions/ Precautions: Falls, vision WB status: FWB Functional Hx: ADLs: Independent Cognition: Independent Mobility: No AD Barriers to Discharge: Decreased mobility and ability to perform self care, balance deficits, weakness Estimated Length of Stay: 1014 days Discharge Destination: Home with family
[2020-10-27] MEDS ORDERED: SODIUM POLYSTYRENE 15 GM/60 ML ORAL LIQD PO SCH (15:00)
[2020-10-27] MEDS: ACETAMINOPHEN 325 MG TAB PO PRN (21:37)
[2020-10-28] MEDS: LOSARTAN 50 MG TAB PO SCH (08:29)
[2020-10-28] MEDS: carvediloL 6.25 MG TAB PO SCH ×2 (08:29→21:30)
[2020-10-28] MEDS: CLOPIDOGREL 75 MG TAB PO SCH (08:29)
[2020-10-28] MEDS: ASPIRIN EC 81 MG TAB PO SCH (08:29)
[2020-10-28 11:08] LABS: BUN/Creatinine Ratio 16; Blood Urea Nitrogen 13 mg/dL (7-17); Calcium 10.5 mg/dL (8.4-10.2); Hemolysis Index 3
--- NOTE | 2020-10-28 15:04 | Progress Note ---
Subjective Date of service: 10/28/20 Principal diagnosis: CVA Interval history: 80-year-old female who presented to the ED with confusion, diplopia and disequilibrium. Patient is unable to walk unassisted which is new for her. Right eye is deviated laterally. Symptoms started greater than 4.5 hours before presentation to the ED so she was outside the window for TPA. Teleneurology consult was obtained and suspected CVA. Head CT showed no bleed and no evidence of CVA. Neurologist recommended typical work-up with A1c, lipid, MRI brain, MRA head and neck, echo and PT/OT/[employer] evaluation. Patient was slated for discharge due to some improvement however she still had deficits. Remainder of the work- up was performed and the patient was accepted into acute rehab. Her right eye is laterally deviated and is accompanied with end gaze nystagmus laterally and diplopia. 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 Interval History: Patient is participating in therapy and making reasonable progress. Taking rest breaks as needed. +BM. Denies pain, palpitations, dyspnea, cough, N/V, or joint pain. Still have the feeling that the patient has some amount of dementia likely that has been undiagnosed. Patient denies any further bleeding. Hyperkalemia corrected today. CVA: No signs of worsening neurologic dysfunction, headache, shoulder-hand syndrome. Continue secondary stroke prevention. Hypertension: Continue to monitor vitals and adjust medications as needed. Blood pressure remains variable despite adjustments to home doses. Goal blood pressure less than 140/90. Hyperkalemia: 5.7 on 10/27, 1 dose Kayexalate and recheck of labs on 10/28 showed correction to 3.7. Continue to monitor Decreased coordination and impaired balance: Continue to monitor, patient is making some improvement with therapy. Fall risk and should be monitored closely when standing or transferring. Poor safety awareness: Will continue bed and chair alarms. Have discussed the importance of the patient not getting out of bed and risking a fall with further injury with the patient. Slight amount of blood from rectum: Noted by nursing, patient has history of hemorrhoids. No further episodes of bleeding, hemoglobin stable seems resolved. Cranial nerve III or palsy: Lateral deviation of the right eye has resolved, and patient is not having nystagmus or diplopia currently. Continue to monitor and see if this has completely resolved. Diplopia: Seems to have improved. Patient denies any ongoing features of diplopia today. Continue to monitor. Patient is able to look around room and pick out objects, is able to read items as well. I do not think that she is still having problems with vision, running into a patient last week may have been more of inattention issue than a visual issue. All records, vitals, labs and medications were reviewed. No other issues per patient, nursing or therapy. Objective - Exam Narrative Exam: MUSCULOSKELETAL SPECIALTY EXAM CONSTITUTIONAL: Well developed, well nourished, appropriately groomed. RIGHT hand dominant. RESPIRATORY: Clear to auscultation bilaterally, no increased work of breathing CARDIOVASCULAR: Regular Rate/ Rhythm, no swelling, edema or tenderness in BUE or BLE. All extremities warm. GI: + bowel sounds, soft, NTTP, nondistended. INTEGUMENTARY: Normal, no lesion, rash, masses or bruising noted in extremities. MUSCULOSKELETAL: BUE and BLE normal without defect, crepitus, subluxation, effusion, arthritic changes or TTP. R 4+/5 L 4+ /5 ROM within normal limits Tone within normal limit NEURO: Lateral deviation of right eye not noticeable upon exam today. Uncertain of patient's actual visual functioning. She is able to read signs but did run into someone while walking that should have been in clear sight. Suspect a visual f ield cut that is difficult to pinpoint without proper equipment. We will continue to work on scanning Sensation intact in all extremities without extinction. No tremor noted in 4 extremities. Follows 2 step commands. Aphasia not appreciated Dysarthria mild Dysphagia not appreciated Neglect not appreciated, likely inattention POSTURE and GAIT: Sitting posture good. Balance and gait deferred until seen with therapy. PSYCH: Alert, oriented x3, affect appears euthymic. Insight appears intact mostly, seems to be some element of cognitive deficit present. Poor safety awareness - Constitutional Vitals: Vital Signs - 12hr 10/28/20 10/28/20 04:13 07:25 Temperature 98.2 F 98.4 F Pulse Rate 85 74 Respiratory 16 16 Rate Blood Pressure 148/74 126/64 O2 Sat by Pulse 96 98 Oximetry - Allied health notes Allied health notes reviewed: nursing, PT, ST, OT FIMS assessment as documented by PT/OT/ST: Social interaction/Memory/Problem solving Social Interaction FIM Score 6. Mod. [place] (Mostly appropriate. May need meds. No supv.) Memory FIM Score 3. Moderate Assistance (Recognizes and remembers 50-74%.) Problem Solving FIM Score 4. Minimal Assistance (Solves routine problems 75-90%.) Transfers Mode of Locomotion: Wheelchair Patient transferred to: Shower Shower Transfers FIM Score 5. Supervision (Needs supv. or set-up with device.) Locomotion- walk/wheelchair Ambulation Distance 50 Eating Eating FIM Score 5. Supervision/Set-Up (Needs help w/ containers, cutting meat, etc.) Dressing-Upper body Patient retrieves clothing No items: Patient applies/removes UE No prosthesis or orthosis: Upper Body Dressing FIM Score 5. Supv./Set-Up ([place] sets out clothes or applies pros./orth.) Dressing-lower body Patient retrieves clothing No items: Patient applies/removes LE No prosthesis or orthosis: Lower Body Dressing FIM Score 4. Minimal Assistance (Patient = 75% or more. Needs touching.) - Labs CBC & Chem 7: 10/27/20 09:07 10/28/20 09:44 Labs: Laboratory Results - last 72 hr 10/27/20 10/27/20 10/28/20 09:07 09:07 09:44 WBC 7.3 RBC 4.87 Hgb 15.1 H Hct 44.8 H MCV 92 MCH 31 MCHC 34 RDW 14.5 Plt Count 204 Sodium 136 L 141 Potassium 5.7 H 3.7 D Chloride 102.7 103.1 Carbon Dioxide 19 L 29 D Anion Gap 20 13 BUN 13 13 Creatinine 0.6 0.8 Estimated GFR > 60 > 60 BUN/Creatinine Ratio 22 16 Glucose 127 H 169 H Calcium 10.4 H 10.5 H Assessment and Plan CVA: Continue Secondary Stroke Prevention (Antithrombotic, Statin (Goal LDL-C <70), BP control (Goal <140/90), GLU control (Goal A1c <7), and lifestyle modification). Monitor for recurrent stroke or post-stroke recrudescence. Continue neuromotor therapy as above. Family training when available. Monitor for post stroke depression, cognitive deficits, seizure, dysphagia, aphasia, shoulder hand syndrome, sensory deficits, spasticity, bowel/bladder deficits, sleep disturbance, vision deficits and DVT. Prognosis for recovery and Secondary Stroke Prevention discussed. Follow up with Neurology. No driving until cleared by Neurologist. Hypertension: Continue home medications which have been restarted at lower doses. Monitor blood pressure. Adjust medications as needed for normotension. Hold for hypotension. Goal SBP <140 Hyperkalemia: Kayexalate, recheck labs, corrected. Monitor Small amount of blood from rectum: Patient has history of hemorrhoids and is also on antiplatelet as well as heparin for DVT prophylaxis. Have stopped heparin. [place] daily CBC to monitor hemoglobin. Preparation H suppository ordered. Monitor for improvement. Seems resolved. Possible cranial nerve III or palsy: Lateral deviation only with some nystagmus on initial exam. Improved, seems resolved. Diplopia and lateral deviation of right eye: Continue occupational therapy for improvement with scanning techniques. Monitor for improvement. Improved, seems resolved. Uncertain if the current issues with vision are related to her inability to see, poor reading, or cognitive issues. Patient was able to read signs on 10/20 except for signs with larger words. But then on while walking in the [place] with therapy she walked right into a person in a wheelchair without hesitation. Approximately an hour later she had no recollection of running into the person. Impaired balance and coordination: Continue to work with therapy, monitor for safety with transfers standing and walking. Impaired cognition: Continue speech therapy to improve patient's ability to be aware of deficits and to compensate for them if possible. Impaired safety awareness: Continue to remind patient of safety issues and improve her awareness of safety for safe return home. Patient still attempting to get out of bed per family member who spent the night with her last night. ADL dysfunction: OT will work on improving ability to perform ADLs (including assistive devices) to increase independence and decrease caregiver burden and improve functional transfers and mobility training. Difficulty walking: PT will work on gait training and proper use of assistive devices and advance as appropriate to use of stairs and outside ambulation on uneven surfaces. Unsteadiness on feet: PT will work on improving static and dynamic sitting and standing balance as well as proper use of assistive devices to decrease risk of falls. Abnormality of gait: PT will work to improve safety and efficiency of gait through neuromotor training and gait training along with instruction on proper use of assistive devices. Muscle weakness: PT & OT will work on strengthening exercises to improve functional strength including mixture of closed and open kinetic chain exercises. Debility: PT & OT will work on improving overall functional status to improve participation with ADLs, mobility and social involvement. Fatigue: PT & OT will work on improving endurance through aerobic exercises and therapeutic activity while monitoring patients tolerance for activity and vital signs as needed. DVT ppx: Heparin on hold due to rectal bleed Pain: Continue physical modalities in therapy and pain medications as needed to achieve functional pain control. Sleep: Monitor and address as needed. Bowel: Monitor and address as needed. Appetite: Monitor and address as needed. Discharge planning: Pending therapy progress and care plan meeting. Will continue discussion with therapy team, SW, patient and family. Have pushback discharge date to 11/03. Will need to determine DME requirements as we approach discharge Restrictions/ Precautions: Falls, vision WB status: FWB Functional Hx: ADLs: Independent Cognition: Independent Mobility: No AD Barriers to Discharge: Decreased mobility and ability to perform self care, balance deficits, weakness Estimated Length of Stay: 1014 days Discharge Destination: Home with family
--- NOTE | 2020-10-29 07:43 | Progress Note ---
Subjective Date of service: 10/29/20 Principal diagnosis: CVA Interval history: 80-year-old female who presented to the ED with confusion, diplopia and disequilibrium. Patient is unable to walk unassisted which is new for her. Right eye is deviated laterally. Symptoms started greater than 4.5 hours before presentation to the ED so she was outside the window for TPA. Teleneurology consult was obtained and suspected CVA. Head CT showed no bleed and no evidence of CVA. Neurologist recommended typical work-up with A1c, lipid, MRI brain, MRA head and neck, echo and PT/OT/[employer]IST[employer] evaluation. Patient was slated for discharge due to some improvement however she still had deficits. Remainder of the work- up was performed and the patient was accepted into acute rehab. Her right eye is laterally deviated and is accompanied with end gaze nystagmus laterally and diplopia. 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 Interval History: Patient is participating in therapy and making reasonable progress. Taking rest breaks as needed. +BM. Denies pain, palpitations, dyspnea, cough, N/V, or joint pain. Still have the feeling that the patient has some amount of dementia likely that has been undiagnosed. Patient denies any further bleeding. We will recheck BMP on Sunday and full labs on Sunday. No acute events overnight. Patient less interactive and talkative this morning. CVA: No signs of worsening neurologic dysfunction, headache, shoulder-hand syndrome. Continue secondary stroke prevention. Hypertension: Continue to monitor vitals and adjust medications as needed. Blood pressure remains variable despite adjustments to home doses. Goal blood pressure less than 140/90. Hyperkalemia: 5.7 on 10/27, 1 dose Kayexalate and recheck of labs on 10/28 showed correction to 3.7. Continue to monitor Decreased coordination and impaired balance: Continue to monitor, patient is making some improvement with therapy. Fall risk and should be monitored closely when standing or transferring. Poor safety awareness: Will continue bed and chair alarms. Have discussed the importance of the patient not getting out of bed and risking a fall with further injury with the patient. Slight amount of blood from rectum: Noted by nursing, patient has history of hemorrhoids. No further episodes of bleeding, hemoglobin stable seems resolved. Cranial nerve III or palsy: Lateral deviation of the right eye has resolved, and patient is not having nystagmus or diplopia currently. Continue to monitor and see if this has completely resolved. Diplopia: Seems to have improved. Patient denies any ongoing features of diplopia today. Continue to monitor. Patient is able to look around room and pick out objects, is able to read items as well. I do not think that she is still having problems with vision, running into a patient last week may have been more of inattention issue than a visual issue. All records, vitals, labs and medications were reviewed. No other issues per patient, nursing or therapy. Objective - Exam Narrative Exam: MUSCULOSKELETAL SPECIALTY EXAM CONSTITUTIONAL: Well developed, well nourished, appropriately groomed. RIGHT hand dominant. RESPIRATORY: Clear to auscultation bilaterally, no increased work of breathing CARDIOVASCULAR: Regular Rate/ Rhythm, no swelling, edema or tenderness in BUE or BLE. All ex tremities warm. GI: + bowel sounds, soft, NTTP, nondistended. INTEGUMENTARY: Normal, no lesion, rash, masses or bruising noted in extremities. MUSCULOSKELETAL: BUE and BLE normal without defect, crepitus, subluxation, effusion, arthritic changes or TTP. R 4+/5 L 4+ /5 ROM within normal limits Tone within normal limit NEURO: Lateral deviation of right eye not noticeable upon exam today. Uncertain of patient's actual visual functioning. She is able to read signs but did run into someone while walking that should have been in clear sight. Suspect a visual field cut that is difficult to pinpoint without proper equipment. We will continue to work on scanning Sensation intact in all extremities without extinction. No tremor noted in 4 extremities. Follows 2 step commands. Aphasia not appreciated Dysarthria mild Dysphagia not appreciated Neglect not appreciated, likely inattention POSTURE and GAIT: Sitting posture good. Balance and gait deferred until seen with therapy. PSYCH: Alert, oriented x3, affect appears euthymic. Insight appears intact mostly, seems to be some element of cognitive deficit present. Poor safety awareness - Constitutional Vitals: Vital Signs - 12hr 10/28/20 10/28/20 10/29/20 20:37 21:30 05:21 Temperature 97.8 F 97.5 F L Pulse Rate 71 71 70 Respiratory 19 18 Rate Blood Pressure 158/67 158/67 129/62 O2 Sat by Pulse 96 96 Oximetry 10/29/20 07:30 Temperature 98.3 F Pulse Rate 68 Respiratory 18 Rate Blood Pressure 132/61 O2 Sat by Pulse 97 Oximetry - Allied health notes Allied health notes reviewed: nursing, PT, ST, OT FIMS assessment as documented by PT/OT/ST: Social interaction/Memory/Problem solving Social Interaction FIM Score 6. Mod. [place] (Mostly appropriate. May need meds. No supv.) Memory FIM Score 3. Moderate Assistance (Recognizes and remembers 50-74%.) Problem Solving FIM Score 4. Minimal Assistance (Solves routine problems 75-90%.) Transfers Mode of Locomotion: Wheelchair Patient transferred to: Shower Shower Transfers FIM Score 5. Supervision (Needs supv. or set-up with device.) Locomotion- walk/wheelchair Ambulation Distance 50 Eating Eating FIM Score 5. Supervision/Set-Up (Needs help w/ containers, cutting meat, etc.) Dressing-Upper body Patient retrieves clothing No items: Patient applies/removes UE No prosthesis or orthosis: Upper Body Dressing FIM Score 5. Supv./Set-Up ([place] sets out clothes or applies pros./orth.) Dressing-lower body Patient retrieves clothing No items: Patient applies/removes LE No prosthesis or orthosis: Lower Body Dressing FIM Score 4. Minimal Assistance (Patient = 75% or more. Needs touching.) - Labs CBC & Chem 7: 10/27/20 09:07 10/28/20 09:44 Labs: Laboratory Results - last 72 hr 10/27/20 10/27/20 10/28/20 09:07 09:07 09:44 WBC 7.3 RBC 4.87 Hgb 15.1 H Hct 44.8 H MCV 92 MCH 31 MCHC 34 RDW 14.5 Plt Count 204 Sodium 136 L 141 Potassium 5.7 H 3.7 D Chloride 102.7 103.1 Carbon Dioxide 19 L 29 D Anion Gap 20 13 BUN 13 13 Creatinine 0.6 0.8 Estimated GFR > 60 > 60 BUN/Creatinine Ratio 22 16 Glucose 127 H 169 H Calcium 10.4 H 10.5 H Assessment and Plan CVA: Continue Secondary Stroke Prevention (Antithrombotic, Statin (Goal LDL-C <70), BP control (Goal <140/90), GLU control (Goal A1c <7), and lifestyle modification). Monitor for recurrent stroke or post-stroke recrudescence. Continue neuromotor therapy as above. Family training when available. Monitor for post stroke depression, cognitive deficits, seizure, dysphagia, aphasia, shoulder hand syndrome, sensory deficits, spasticity, bowel/bladder deficits, sleep disturbance, vision deficits and DVT. Prognosis for recovery and Secondary Stroke Prevention discussed. Follow up with Neurology. No driving until cleared by Neurologist. Hypertension: Continue home medications which have been restarted at lower doses. Monitor blood pressure. Adjust medications as needed for normotension. Hold for hypotension. Goal SBP <140 Hyperkalemia: Kayexalate, recheck labs, corrected. Monitor Small amount of blood from rectum: Patient has history of hemorrhoids and is also on antiplatelet as well as heparin for DVT prophylaxis. Have stopped heparin. [place] daily CBC to monitor hemoglobin. Preparation H suppository ordered. Monitor for improvement. Seems resolved. Possible cranial nerve III or palsy: Lateral deviation only with some nystagmus on initial exam. Improved, seems resolved. Diplopia and lateral deviation of right eye: Continue occupational therapy for improvement with scanning techniques. Monitor for improvement. Improved, seems resolved. Uncertain if the current issues with vision are related to her inability to see, poor reading, or cognitive issues. Patient was able to read signs on 10/20 except for signs with larger words. But then on while walking in the [place] with therapy she walked right into a person in a wheelchair without hesitation. Approximately an hour later she had no recollection of running into the person. Impaired balance and coordination: Continue to work with therapy, monitor for safety with transfers standing and walking. Impaired cognition: Continue speech therapy to improve patient's ability to be a varma of deficits and to compensate for them if possible. Impaired safety awareness: Continue to remind patient of safety issues and improve her awareness of safety for safe return home. Patient still attempting to get out of bed per family member who spent the night with her last night. ADL dysfunction: OT will work on improving ability to perform ADLs (including assistive devices) to increase independence and decrease caregiver burden and improve functional transfers and mobility training. Difficulty walking: PT will work on gait training and proper use of assistive devices and advance as appropriate to use of stairs and outside ambulation on uneven surfaces. Unsteadiness on feet: PT will work on improving static and dynamic sitting and standing balance as well as proper use of assistive devices to decrease risk of falls. Abnormality of gait: PT will work to improve safety and efficiency of gait through neuromotor training and gait training along with instruction on proper use of assistive devices. Muscle weakness: PT & OT will work on strengthening exercises to improve funct ional strength including mixture of closed and open kinetic chain exercises. Debility: PT & OT will work on improving overall functional status to improve participation with ADLs, mobility and social involvement. Fatigue: PT & OT will work on improving endurance through aerobic exercises and therapeutic activity while monitoring patients tolerance for activity and vital signs as needed. DVT ppx: Heparin on hold due to rectal bleed Pain: Continue physical modalities in therapy and pain medications as needed to achieve functional pain control. Sleep: Monitor and address as needed. Bowel: Monitor and address as needed. Appetite: Monitor and address as needed. Discharge planning: Pending therapy progress and care plan meeting. Will continue discussion with therapy team, SW, patient and family. Have pushback discharge date to 11/03. Will need to determine DME requirements as we approach discharge Restrictions/ Precautions: Falls, vision WB status: FWB Functional Hx: ADLs: Independent Cognition: Independent Mobility: No AD Barriers to Discharge: Decreased mobility and ability to perform self care, balance deficits, weakness Estimated Length of Stay: 1014 days Discharge Destination: Home with family
[2020-10-29] MEDS: LOSARTAN 50 MG TAB PO SCH (08:21)
[2020-10-29] MEDS: ASPIRIN EC 81 MG TAB PO SCH (08:21)
[2020-10-29] MEDS: CLOPIDOGREL 75 MG TAB PO SCH (08:21)
[2020-10-29] MEDS: carvediloL 6.25 MG TAB PO SCH ×2 (08:21→21:57)
[2020-10-30 07:41] LABS: Blood Urea Nitrogen 12 mg/dL (7-17); Calcium 10.4 mg/dL (8.4-10.2); Hemolysis Index 10
[2020-10-30 07:42] LABS: BUN/Creatinine Ratio 20
[2020-10-30] MEDS: ASPIRIN EC 81 MG TAB PO SCH (08:35)
[2020-10-30] MEDS: LOSARTAN 50 MG TAB PO SCH (08:39)
[2020-10-30] MEDS: CLOPIDOGREL 75 MG TAB PO SCH (08:40)
[2020-10-30] MEDS: carvediloL 6.25 MG TAB PO SCH ×2 (08:40→21:59)
[2020-10-31] MEDS: carvediloL 6.25 MG TAB PO SCH ×2 (08:39→22:10)
[2020-10-31] MEDS: ASPIRIN EC 81 MG TAB PO SCH (08:40)
[2020-10-31] MEDS: CLOPIDOGREL 75 MG TAB PO SCH (08:40)
[2020-10-31] MEDS: LOSARTAN 50 MG TAB PO SCH (08:40)
[2020-11-01 08:09] LABS: Hematocrit 37.2 % (30.3-42.9); Hemoglobin 12.7 gm/dl (10.1-14.3); Mean Corpuscular HGB Conc 34 % (30-34); Mean Corpuscular Volume 91 fl (79-97); Platelet Count 178 K/mm3 (140-440); Red Blood Count 4.11 M/mm3 (3.65-5.03); Red Cell Distribution Width 14.5 % (13.2-15.2)
[2020-11-01 08:54] LABS: Blood Urea Nitrogen 11 mg/dL (7-17); Calcium 10.2 mg/dL (8.4-10.2); Hemolysis Index 1
[2020-11-01 08:56] LABS: BUN/Creatinine Ratio 16
[2020-11-01] MEDS: carvediloL 6.25 MG TAB PO SCH ×2 (09:02→21:32)
[2020-11-01] MEDS: LOSARTAN 50 MG TAB PO SCH (09:03)
[2020-11-01] MEDS: ASPIRIN EC 81 MG TAB PO SCH (09:04)
[2020-11-01] MEDS: CLOPIDOGREL 75 MG TAB PO SCH (09:05)
[2020-11-02] MEDS: carvediloL 6.25 MG TAB PO SCH ×2 (08:22→21:41)
[2020-11-02] MEDS: LOSARTAN 50 MG TAB PO SCH (08:23)
[2020-11-02] MEDS: CLOPIDOGREL 75 MG TAB PO SCH (08:23)
[2020-11-02] MEDS: ASPIRIN EC 81 MG TAB PO SCH (08:23)
--- NOTE | 2020-11-02 19:51 | Progress Note ---
Subjective Date of service: 11/02/20 Principal diagnosis: CVA Interval history: 80-year-old female who presented to the ED with confusion, diplopia and disequilibrium. Patient is unable to walk unassisted which is new for her. Right eye is deviated laterally. Symptoms started greater than 4.5 hours before presentation to the ED so she was outside the window for TPA. Teleneurology consult was obtained and suspected CVA. Head CT showed no bleed and no evidence of CVA. Neurologist recommended typical work-up with A1c, lipid, MRI brain, MRA head and neck, echo and PT/OT/COLLECTOR OF PORT evaluation. Patient was slated for discharge due to some improvement however she still had deficits. Remainder of the work- up was performed and the patient was accepted into acute rehab. Her right eye is laterally deviated and is accompanied with end gaze nystagmus laterally and diplopia. 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 Interval History: Patient is participating in therapy and making reasonable progress. Taking rest breaks as needed. +BM. Denies pain, palpitations, dyspnea, cough, N/V, or joint pain. Still have the feeling that the patient has some amount of dementia likely that has been undiagnosed. Patient denies any further bleeding. No acute events overnight. CVA: No signs of worsening neurologic dysfunction, headache, shoulder-hand syndrome. Continue secondary stroke prevention. Hypertension: Continue to monitor vitals and adjust medications as needed. Blood pressure remains variable despite adjustments to home doses. Goal blood pressure less than 140/90. HCTZ started at home dose. Hyperkalemia: 5.7 on 10/27, 1 dose Kayexalate and recheck of labs on 10/28 showed correction to 3.7. Continue to monitor Decreased coordination and impaired balance: Continue to monitor, patient is making some improvement with therapy. Fall risk and should be monitored closely when standing or transferring. Poor safety awareness: Will continue bed and chair alarms. Have discussed the importance of the patient not getting out of bed and risking a fall with further injury with the patient. Slight amount of blood from rectum: Noted by nursing, patient has history of hemorrhoids. No further episodes of bleeding, hemoglobin stable seems resolved. Cranial nerve III or palsy: Lateral deviation of the right eye has resolved, and patient is not having nystagmus or diplopia currently. Continue to monitor and see if this has completely resolved. Diplopia: Seems to have improved. Patient denies any ongoing features of diplopia today. Continue to monitor. Patient is able to look around room and pick out objects, is able to read items as well. I do not think that she is still having problems with vision, running into a patient last week may have been more of inattention issue than a visual issue. All records, vitals, labs and medications were reviewed. No other issues per patient, nursing or therapy. Patient discussed during team conference today and is making fairly decent progress. Still having some issues with cognition and following commands. Does have some balance issues occasionally but for the most part is doing fairly well. We will look to discharge tomorrow with home health. Patient will likely need 24 7 supervision at least until she is doing better and able to be completely independent. Blood pressure has been elevated slightly, have started home dose HCTZ. Objective - Exam Narrative Exam: MUSCULOSKELETAL SPECIALTY EXAM CONSTITUTIONAL: Well developed, well nourished, appropriately groomed. RIGHT hand dominant. RESPIRATORY: Clear to auscultation bilaterally, no increased work of breathing CARDIOVASCULAR: Regular Rate/ Rhythm, no swelling, edema or tenderness in BUE or BLE. All ex tremities warm. GI: + bowel sounds, soft, NTTP, nondistended. INTEGUMENTARY: Normal, no lesion, rash, masses or bruising noted in extremities. MUSCULOSKELETAL: BUE and BLE normal without defect, crepitus, subluxation, effusion, arthritic changes or TTP. R 4+/5 L 4+ /5 ROM within normal limits Tone within normal limit NEURO: Lateral deviation of right eye not noticeable upon exam today. Uncertain of patient's actual visual functioning. She is able to read signs but did run into someone while walking that should have been in clear sight. Suspect a visual field cut that is difficult to pinpoint without proper equipment. We will continue to work on scanning Sensation intact in all extremities without extinction. No tremor noted in 4 extremities. Follows 2 step commands. Aphasia not appreciated Dysarthria mild Dysphagia not appreciated Neglect not appreciated, likely inattention POSTURE and GAIT: Sitting posture good. Balance and gait deferred until seen with therapy. PSYCH: Alert, oriented x3, affect appears euthymic. Insight appears intact mostly, seems to be some element of cognitive deficit present. Poor safety awareness - Constitutional Vitals: Vital Signs - 12hr 11/02/20 08:22 Pulse Rate 62 Blood Pressure 145/67 - Allied health notes Allied health notes reviewed: nursing, PT, ST, OT FIMS assessment as documented by PT/OT/ST: Grooming Patient cleans teeth/dentures: Yes Patient mcguire/brushes hair: Yes Patient washes, rinses and Yes dries face: Patient washes, rinses and Yes dries hands: Grooming FIM Score 4. Minimal Assistance (Patient = 75% or more. Needs touching.) Toileting Toileting Device Commode over Toilet Patient able to: Adjust clothes before,Adjust clothes after Toileting FIM Score 3. Moderate Assistance (Patient = 50% or more. Some lifting.) Social interaction/Memory/Problem solving Social Interaction FIM Score 6. Mod. [place] (Mostly appropriate. May need meds. No supv.) Memory FIM Score 3. Moderate Assistance (Recognizes and remembers 50-74%.) Problem Solving FIM Score 4. Minimal Assistance (Solves routine problems 75-90%.) Transfers Mode of Locomotion: Wheelchair Bed/Chair/Wheelchair Transfers 5. Supervision (Needs supv. or set-up for FIM Score sliding board, foot rests.) Toilet Transfers FIM Score 5. Supervision (Needs supervision or cueing.) Patient transferred to: Shower Shower Transfers FIM Score 5. Supervision (Needs supv. or set-up with device.) Locomotion- walk/wheelchair Ambulation Distance 50 Eating Eating FIM Score 5. Supervision/Set-Up (Needs help w/ contai ners, cutting meat, etc.) Dressing-Upper body Patient retrieves clothing No items: Patient applies/removes UE No prosthesis or orthosis: Upper Body Dressing FIM Score 5. Supv./Set-Up ([place] sets out clothes or applies pros./orth.) Dressing-lower body Patient retrieves clothing No items: Patient applies/removes LE No prosthesis or orthosis: Lower Body Dressing FIM Score 4. Minimal Assistance (Patient = 75% or more. Needs touching.) - Labs CBC & Chem 7: 11/01/20 07:23 11/01/20 07:23 Labs: Laboratory Results - last 72 hr 11/01/20 11/01/20 07:23 07:23 WBC 5.8 RBC 4.11 Hgb 12.7 Hct 37.2 MCV 91 MCH 31 MCHC 34 RDW 14.5 Plt Count 178 Sodium 144 Potassium 3.5 L Chloride 107.2 H Carbon Dioxide 29 Anion Gap 11 BUN 11 Creatinine 0.7 Estimated GFR > 60 BUN/Creatinine Ratio 16 Glucose 100 Calcium 10.2 Assessment and Plan CVA: Continue Secondary Stroke Prevention (Antithrombotic, Statin (Goal LDL-C <70), BP control (Goal <140/90), GLU control (Goal A1c <7), and lifestyle modification). Monitor for recurrent stroke or post-stroke recrudescence. Continue neuromotor therapy as above. Family training when available. Monitor for post stroke depression, cognitive deficits, seizure, dysphagia, aphasia, shoulder hand syndrome, sensory deficits, spasticity, bowel/bladder deficits, sleep disturbance, vision deficits and DVT. Prognosis for recovery and Secondary Stroke Prevention discussed. Follow up with Neurology. No driving until cleared by Neurologist. Hypertension: Continue home medications which have been restarted at lower doses. Monitor blood pressure. Adjust medications as needed for normotension. Hold for hypotension. Goal SBP <140., Home dose HCTZ started Hyperkalemia: Kayexalate, recheck labs, corrected. Monitor Small amount of blood from rectum: Patient has history of hemorrhoids and is also on antiplatelet as well as heparin for DVT prophylaxis. Have stopped heparin. Bud daily CBC to monitor hemoglobin. Preparation H suppository ordered. Monitor for improvement. Seems resolved. Possible cranial nerve III or palsy: Lateral deviation only with some nystagmus on initial exam. Improved, seems resolved. Diplopia and lateral deviation of right eye: Continue occupational therapy for improvement with scanning techniques. Monitor for improvement. Improved, seems resolved. Uncertain if the current issues with vision are related to her inability to see, poor reading, or cognitive issues. Patient was able to read signs on 10/20 except for signs with larger words. But then on while walking in the [place] with therapy she walked right into a person in a wheelchair without hesitation. Approximately an hour later she had no recollection of running into the person. Impaired balance and coordination: Continue to work with therapy, monitor for safety with transfers standing and walking. Impaired cognition: Continue speech therapy to improve patient's ability to be aware of deficits and to compensate for them if possible. Impaired safety awareness: Continue to remind patient of safety issues and improve her awareness of safety for safe return home. Patient still attempting to get out of bed per family member who spent the night with her last night. ADL dysfunction: OT will work on improving ability to perform ADLs (including assistive devices) to increase independence and decrease caregiver burden and improve functional transfers and mobility training. Difficulty walking: PT will work on gait training and proper use of assistive devices and advance as appropriate to use of stairs and outside ambulation on uneven surfaces. Unsteadiness on feet: PT will work on improving static and dynamic sitting and standing balance as well as proper use of assistive devices to decrease risk of falls. Abnormality of gait: PT will work to improve safety and efficiency of gait through neuromotor training and gait training along with instruction on proper use of assistive devices. Muscle weakness: PT & OT will work on strengthening exercises to improve functional strength including mixture of closed and open kinetic chain exercises. Debility: PT & OT will work on improving overall functional status to improve participation with ADLs, mobility and social involvement. Fatigue: PT & OT will work on improving endurance through aerobic exercises and therapeutic activity while monitoring patients tolerance for activity and vital signs as needed. DVT ppx: Heparin on hold due to rectal bleed Pain: Continue physical modalities in therapy and pain medications as needed to achieve functional pain control. Sleep: Monitor and address as needed. Bowel: Monitor and address as needed. Appetite: Monitor and address as needed. Discharge planning: Pending therapy progress and care plan meeting. Will continue discussion with therapy team, SW, patient and family. Have pushback discharge date to 11/03. Will need to determine DME requirements as we approach discharge Restrictions/ Precautions: Falls, vision WB status: FWB Functional Hx: ADLs: Independent Cognition: Independent Mobility: No AD Barriers to Discharge: Decreased mobility and ability to perform self care, balance deficits, weakness Estimated Length of Stay: 1014 days Discharge Destination: Home with family
[2020-11-02] MEDS: ACETAMINOPHEN 325 MG TAB PO PRN (21:41)
[2020-11-03] MEDS ORDERED: hydroCHLOROthiazide 25 MG TAB PO SCH (08:00)
[2020-11-03] MEDS ORDERED: POTASSIUM CHLORIDE ER 20 MEQ TAB PO SCH (08:00)
[2020-11-03] MEDS: LOSARTAN 50 MG TAB PO SCH (08:28)
[2020-11-03] MEDS: CLOPIDOGREL 75 MG TAB PO SCH (08:28)
[2020-11-03] MEDS: carvediloL 6.25 MG TAB PO SCH (08:28)
[2020-11-03] MEDS: ASPIRIN EC 81 MG TAB PO SCH (08:28)
--- NOTE | 2020-11-03 08:29 | Discharge Summary ---
Providers - Providers Date of Admission: 10/14/20 22:00 Date of discharge: 11/03/20 Attending physician: SAMMY BURKETT III, MD 10/14/20 11:17 Occupational Therapy Evaluate and Treat [CONS] Routine Comment: Reason For Exam: ADL dysfunction Physical Therapy Evaluation and Treat [CONS] Routine Comment: Reason For Exam: Mobility Dysfunction 10/14/20 11:24 Consult to Case Management [CONS] Routine Services Needed at Discharge: Home Health Services Notified:: CASE MANAGEMENT Speech Therapy Evaluation and Treat [CONS] Routine Reason For Exam: CVA, Assess/Treat Speech/Cog/Swallow Primary care physician: ASHISH FERNANDEZ Hospitalization Reason for admission: CVA Condition: Fair Hospital course: 80-year-old female who presented to the ED with confusion, diplopia and disequilibrium. Patient is unable to walk unassisted which is new for her. Right eye is deviated laterally. Symptoms started greater than 4.5 hours before presentation to the ED so she was outside the window for TPA. Teleneurology consult was obtained and suspected CVA. Head CT showed no bleed and no evidence of CVA. Neurologist recommended typical work-up with A1c, lipid, MRI brain, MRA head and neck, echo and PT/OT/MANAGER PACKAGE evaluation. Patient was slated for discharge due to some improvement however she still had deficits. Remainder of the work-up was performed and the patient was accepted into acute rehab. Her right eye is laterally deviated and is accompanied with end gaze nystagmus laterally and diplopia. 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 Interval History: CVA: Continue Secondary Stroke Prevention (Antithrombotic, Statin (Goal LDL-C <70), BP control (Goal <140/90), GLU control (Goal A1c <7), and lifestyle modification). Monitor for recurrent stroke or post-stroke recrudescence. Continue neuromotor therapy as above. Family training when available. Monitor for post stroke depression, cognitive deficits, seizure, dysphagia, aphasia, shoulder hand syndrome, sensory deficits, spasticity, bowel/bladder deficits, sleep disturbance, vision deficits and DVT. Prognosis for recovery and Secondary Stroke Prevention discussed. Follow up with Neurology. No driving until cleared by Neurologist. Continues to be a question of possible dementia with the patient. Have discussed this with therapy as well as the family in the past. Uncertain if this is related to CVA and poor carryover. Patient would benefit from follow-up with neurology as an outpatient for both monitoring of CVA as well as further diagnostic testing for dementia. At this point due to poor carryover and safety awareness we do recommend the patient have 24/7 supervision at home. Hypertension: Continue to monitor vitals and adjust medications as needed. Blood pressure remains variable despite adjustments to home doses. Goal blood pressure less than 140/90. HCTZ started at home dose. Hyperkalemia: 5.7 on 10/27, 1 dose Kayexalate and recheck of labs on 10/28 showed correction to 3.7. Potassium was slightly lower on 11/01 at 3.5. A one-time dose of 20 mEq of potassium chloride was given prior to discharge. Patient will need follow-up with primary care for further monitoring and adjustments Decreased coordination and impaired balance: Continue to monitor, patient is making some improvement with therapy. Fall risk and should be monitored closely when standing or transferring. Will need continued 24/7 supervision at home. This has been discussed with the family during family training. Poor safety awareness: Will continue bed and chair alarms. Have discussed the importance of the patient not getting out of bed and risking a fall with further injury with the patient. Will need continuous 24/7 supervision while at home Slight amount of blood from rectum: Noted by nursing, patient has history of hemorrhoids. No further episodes of bleeding, hemoglobin stable seems resolved. Cranial nerve III or palsy: Lateral deviation of the right eye has resolved, and patient is not having nystagmus or diplopia currently. Seems to be completely resolved at this point. Diplopia: Seems to have improved. Patient denies any ongoing features of diplopia today. Continue to monitor. Patient is able to look around room and pick out objects, is able to read items as well. I do not think that she is still having problems with vision, running into a patient last week may have been more of inattention issue than a visual issue. Disposition: [id number] HOME UNDER HOME [facility] Final Discharge Diagnosis (Prints w/discharge instructions): CVA Time spent for discharge: >30 mins Core Measure Documentation - Palliative Care Palliative Care/ Comfort Measures: Not Applicable - Core Measures Any of the following diagnoses?: stroke - Stroke Discharge Requirements Statin for LDL = or >70 mg/dl on DC: Yes Anticoag for atrial fib/atrial flutter: Not Applicable Antithrombotic for ischemic stroke: Yes Exam - Physical Exam Narrative exam: MUSCULOSKELETAL SPECIALTY EXAM CONSTITUTIONAL: Well developed, well nourished, appropriately groomed. RIGHT hand dominant. RESPIRATORY: Clear to auscultation bilaterally, no increased work of breathing CARDIOVASCULAR: Regular Rate/ Rhythm, no swelling, edema or tenderness in BUE or BLE. All extremities warm. GI: + bowel sounds, soft, NTTP, nondistended. INTEGUMENTARY: Normal, no lesion, rash, masses or bruising noted in extremities. MUSCULOSKELETAL: BUE and BLE normal without defect, crepitus, subluxation, effusion, arthritic changes or TTP. R 4+/5 L 4+ /5 ROM within normal limits Tone within normal limit NEURO: Sensation intact in all extremities without extinction. No tremor noted in 4 extremities. Follows 2 step commands. Aphasia not appreciated Dysarthria mild Dysphagia not appreciated Neglect not appreciated, likely mild inattention POSTURE and GAIT: Sitting posture good. PSYCH: Alert, oriented x3, affect appears euthymic. Insight appears intact mostly, seems to be some element of cognitive deficit present. Poor safety awareness - Constitutional Vitals: Temp Pulse Resp BP Pulse Ox 97.5 F L 66 18 150/68 98 11/02/20 19:37 11/02/20 19:37 11/02/20 19:37 11/02/20 19:37 11/02/20 19:37 Plan Activity: advance as tolerated, no driving until cleared by PCP, up only with assistance, fall precautions Diet: low cholesterol (Heart healthy diet) Special Instructions: physical therapy, occupational therapy, home health RN Durable Medical Equipment Needed Upon Discharge: Wheelchair, Bedside Commode Care Plan Goals: Patient will need to follow-up with PCP for monitoring of chronic medical conditions. Potassium was elevated previously which was corrected with Kayexalate. Approximately a week later she became hypokalemic which was corrected with 1 dose of potassium chloride. Will need to continue monitoring electrolytes to ensure she is not have any more issues. Blood pressures been fairly well controlled with a gradual return of her home medications. We have restarted her HCTZ at her home dose prior to discharge and prior to that she was running systolic blood pressure 140-150s. Patient did have a scant amount of blood in her stool earlier in her admission. She and her daughter stated that she had a history of hemorrhoids, Preparation H suppository was utilized without any further issues. Hemoglobin has remained stable and the patient denies any further rectal bleeding. May need to follow-up for continued monitoring of hemorrhoid issues and possibly seek further specialist care. Patient will also need to follow-up with neurologist of her choice. She remains on secondary stroke prevention protocol. No driving until she sees her neurologist and is cleared for driving. Patient will be discharged with home health for physical therapy, Occupational Therapy, and speech language pathology. Follow up with: ASHISH FERNANDEZ MD [Primary Care Provider] - 7 Days Prescriptions: AtorvaSTATin [Lipitor] 40 mg PO QHS #30 tablet carvediloL [Coreg] 6.25 mg PO BID #60 tablet Aspirin EC [Halfprin EC] 81 mg PO QDAY #30 tablet Losartan/Hydrochlorothiazide [Losartan-Hctz 100-25 mg Tab] 1 each PO QDAY 30 Days #30 tablet Clopidogrel [Plavix] 75 mg PO QDAY #30 tablet
[2020-11-03 11:50] VITALS: BP 106/52
== END 2020-11-03 14:00 | disposition home or self-care (01) | DRG 66 ==
LOC: UNDOADMIN 10:15 → 3A 10:15 → 4A 22:00 → 3B 10-16 15:48
PROVIDERS: ADMIT Physical Medicine & Rehabilitation; ATTEND Physical Medicine & Rehabilitation
DX: I63.9 Cerebral infarction, unspecified (principal); I10 Essential (primary) hypertension; R53.81 Other malaise; R26.9 Unspecified abnormalities of gait and mobility; E87.5 Hyperkalemia; H49.00 Third [oculomotor] nerve palsy, unspecified eye; H55.00 Unspecified nystagmus; H53.2 Diplopia; Z79.899 Other long term (current) drug therapy; Z82.49 Family history of ischemic heart disease and other diseases of the circulatory system; Z79.82 Long term (current) use of aspirin; Z79.891 Long term (current) use of opiate analgesic; Z79.01 Long term (current) use of anticoagulants
CPT/HCPCS: 36415; 80048; 80053; 81001; 82962; 85025; 85027; 94640; G0378; A9270-GY; G0515-GN; J0360; J1644